=== PATIENT | female | born 1940 | race Caucasian/White ===

== ENCOUNTER 2017-07-04 12:35 | Inpatient (IN) | payer MEDICARE, OTHER, SELFPAY ==
[2017-07-04 13:04] VITALS: BP 148/79; PULSE 85; RESP 17; TEMP 36.6; O2SAT 97
--- NOTE | 2017-07-04 13:04 | NURSING ---
pt arrived via WC from [facility]
[2017-07-04 14:03] VITALS: BMI 29.0
[2017-07-04 14:06] VITALS: O2SAT 98
--- NOTE | 2017-07-04 14:36 | NURSING ---
DR WHITE NOTIFIED OF INR 3.1, NEW ORDER TO CHANGE COUMADIN 4.5MG DAILY. ALSO NOTIFIED OF CONFUSION/HALLUCINATIONS. NEW ORDER TO CHECK UA C/S
[2017-07-04 15:16] VITALS: BMI 29.0
[2017-07-04 16:02] LABS: Bacteria 0 SEEN /hpf (None Seen); Color, Urine Yellow (Yellow); Glucose, Dipstick Normal (Normal); Ketone-Dipstick Negative (Negative); Leukocyte Esterase-Dipstick Negative /ul (Negative); Mucous, Urine 0 SEEN /hpf (<or=2+); Nitrite-Dipstick Negative (Negative); Occult Blood-Urine 50 /ul (Negative); Protein-Dipstick 30 mg/dl (Negative); Specific Gravity, Urine 1.015 (1.002-1.030); Squamous Epithelial Cells - UA 0 SEEN /hpf (5-10); Urine Bilirubin Dipstick Negative (Negative); Urine Clarity Sl. Cloudy (Clear); Urine Urobilinogen Normal (Normal); White Blood Cells 0 SEEN /hpf (0-5)
[2017-07-04 16:30] LABS: Red Blood Cells-Urine 0-5 SEEN /hpf (0-5)
[2017-07-04 17:05] LABS: Bedside Glucose 81 mg/dL (70-110)
--- NOTE | 2017-07-04 17:14 | PCM.HP.STD ---
Problem List (1) Shortness of breath Status: Acute (2) Acute on chronic diastolic heart failure Status: Acute (3) Coronary artery disease Status: Chronic (4) Diabetes mellitus Status: Chronic (5) DVT (deep venous thrombosis) Status: Chronic (6) Lymphedema Status: Chronic (7) Gout Status: Acute (8) Peripheral vascular disease Status: Chronic (9) Hypertension Status: Chronic Qualifiers: (10) Hyperlipidemia Status: Chronic Qualifiers: (11) Osteoarthritis Status: Chronic Qualifiers: (12) Venous stasis dermatitis Status: Chronic Qualifiers: (13) A-fib Status: Chronic Qualifiers: History of Present Illness Date of Admission: 07/04/17 Chief Complaint: Here for rehabilitation, strengthening, prior to discharge home with spouse. 06/29/2017 Admit to Hospital with fever, chills, cough. Productive cough, worsening dyspnea on exertion. Keflex x 3 days, not helping. Auditory and visual hallucinations. Troponin negative, Rapid flu negative. Chest X-ray showed vascular congestion, mild to moderate pulmonary edema. EKG atrial fibrillation, heart rate 90, V6 T wave inversion. Lasix 40MG IV given. Order respiratory panel. 06/30/2017 Chest X-ray no acute airspace disease. 06/30/2017 Echo Normal LV size. Mild concentric LVH. EF 50%. Right atrial systolic pressure 28mmHG. Hallucinations continue, stress from recent son's . Patient ruled out for [place]. IV Lasix changed to oral Lasix. 07/04/2017 Admit to TCU for rehabilitation, strengthening, prior to discharge home with spouse. Past Medical History Past Medical History (Chronic Problems): Chronic Problems Peripheral edema (Chronic) Venous (peripheral) insufficiency (Chronic) Peripheral vascular disease (Chronic) CHF (congestive heart failure) (Chronic) Diabetes type 2, controlled (Chronic) Hypertension (Chronic) Hyperlipidemia (Chronic) Atherosclerotic heart disease of [place] coronary artery without angina pectoris (Chronic) Presence of cardiac pacemaker (Chronic) Presence of prosthetic heart valve (Chronic) S/P AAA (abdominal aortic aneurysm) repair (Chronic) Ulcer, venous stasis, left (Chronic) left medial ankle Lymphedema of both lower extremities (Chronic) Venous hypertension, chronic, with inflammation (Chronic) History of DVT (deep vein thrombosis) (Chronic) Postphlebetic syndrome with inflammation (Chronic) Leg swelling (Chronic) Osteoarthritis (Chronic) Venous stasis dermatitis (Chronic) A-fib (Chronic) Coronary artery disease (Chronic) Diabetes mellitus (Chronic) DVT (deep venous thrombosis) (Chronic) Lymphedema (Chronic) Allergies duloxetine [From Cymbalta] Allergy (Verified 05/02/16 14:48) Other Penicillins Allergy (Verified 05/02/16 14:48) Hives terbutaline [From Brethine] Allergy (Verified 05/02/16 14:48) Shortness of breath tolmetin Adverse Reaction (Verified 05/02/16 14:48) Unknown Home Medications: Ambulatory Orders Medication Instructions Recorded Allopurinol [Zyloprim] 100 mg PO DAILYCM 05/02/16 Aspirin 81 mg PO DAILY 05/02/16 Nitroglycerin [Nitrostat] 0.4 mg SUBLINGUAL Q5M PRN 05/02/16 Oxycodone HCl/Acetaminophen 1 tablet PO Q6H PRN PRN 05/02/16 [Percocet 5-325] Rosuvastatin Calcium [Crestor] 10 mg PO DAILY 05/02/16 Warfarin [Coumadin] 3 mg PO MOWEFR 05/02/16 Warfarin [Coumadin] 6 mg PO SUTUTH 05/02/16 DiphenhydrAMINE [Benadryl] 25 mg PO DAILY PRN 04/27/17 Quinapril HCl [Accupril] 20 mg PO DAILY 06/30/17 Carvedilol [Coreg (Beta Luci)] 3.125 mg PO BID 07/04/17 Furosemide [Lasix] 20 mg PO DAILY 07/04/17 Insulin Aspart [Novolog Flexpen] See Protocol [facility] 07/04/17 Surgical History: angioplasty, coronary bypass surgery - x 2., hysterectomy, pacemaker implantation, - - Aortic valve replacement, AAA repair endoluminal. 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 Denies: Shortness of breath at rest, Sputum production Gastrointestinal: Denies: Abdominal Pain, Nausea, Vomiting Genitourinary: Denies: Dysuria Musculoskeletal: Denies: Joint Pain, Joint Tenderness Skin: Denies: Rash, Wounds Neurological: Denies: Numbness, Tingling, Focal weakness Psychiatric: Denies: Anxiety, Depression, Homicidal Ideations, Suicidal Ideations Hematologic/ Lymphatic: Denies: Easy Bruising, Easy Bleeding VTE Information - Inpt Only VTE Present on Admission: No VTE Mechan Device Prophylaxis: Knee High NITESH Hose VTE Pharm Prophylaxis ordered?: Yes Patient Problems: Active and Suspected Problems Shortness of breath (Acute) Acute on chronic diastolic heart failure (Acute) Gout (Acute) - Physical Exam General: Alert, Oriented x3, Cooperative HEENT: Atraumatic, PERRLA, EOMI, Normocephalic Neck: Supple, No JVD, Negative Carotid Bruits Lungs: Normal air movement, Wheezes - Diffuse. Cardiovascular: Regular rate, No murmurs Abdomen: Bowel Sounds Present, Soft, Non Tender Extremities: No edema, Capillary Refill Less than 3 Seconds Skin: No rashes, No breakdown Musculoskeletal: No Tenderness to Palpation of Joints or Extremities Neurological: Cranial nerves II-XII grossly intact Psych/Mental Status: Normal Affect, Appropriate Vital Signs Temp Pulse Resp BP Pulse Ox 97.8 F 85 17 148/79 H 98 07/04/17 13:04 07/04/17 13:04 07/04/17 13:04 07/04/17 13:04 07/04/17 14:06 Oxygen Delivery Method Room Air Weight: 76.7 kg Body Mass Index (BMI) 29.0 Intake and Output for Last 24 Hours 07/02/17 07/03/17 07/04/17 23:59 23:59 23:59 Output Total 350 / 350 Balance -350 / -350 Laboratory Tests Past 24 Hrs 07/04/17 15:40 Urine Color Yellow Urine Clarity Sl. Cloudy Urine pH 6.0 Ur Specific [place] 1.015 Urine Protein 30 H Urine Glucose (UA) Normal Urine Ketones Negative Urine Occult Blood 50 H Urine Nitrite Negative Urine Bilirubin Negative Urine Urobilinogen Normal Ur Leukocyte Esterase Negative Urine RBC 0-5 SEEN Urine WBC 0 SEEN Ur Squamous Epith Cells 0 SEEN Urine Bacteria 0 SEEN Urine Mucus 0 SEEN POC Glucose 07/04/17 17:01 POC Glucose 81 Assessment/Plan Active and Suspected Problems Shortness of breath (Acute) Acute on chronic diastolic heart failure (Acute) Gout (Acute) 77 year old female with below past medical history hospitalized for acute on chronic diastolic heart failure, complicated by auditory and visual hallucinations from encephalopathy, severe stress, admitted to TCU or rehabilitation, strengthening, prior to discharge home with spouse. Debility - PT/OT. Pain - Tylenol 1000MG Q8H PRN mild pain. Bowel - Miralax 17GM daily, Senna/colace 1 tablet BID, Dulcolax 10MG PO daily PRN. Pneumonia vaccination - Administer Prevnar 13 and/or Pneumovax 23 as necessary. DVT prophylaxis - Not necessary, already on warfarin. Gout - Allopurinol 100MG daily. Coronary artery disease - Coreg 3.125MG BID, Lisinopril 20MG daily, Aspirin 81MG daily, NTG 0.4MG SL Q5M PRN. Hyperlipidemia - Atorvastatin 20MG daily. Atrial Fibrillation - Coreg 3.125MG BID, Warfarin 4.5MG daily, follow INR. Skin irritation - Eucerin intensive repair BID bilateral lower extremities. Acute on chronic diastolic heart failure - Coreg 3.125MG BID, Lisinopril 20MG daily, Lasix 20MG daily. Nutrition - Glucerna Shake 120ML TIDCM. Tinea Corporis - Nystatin BID abdominal folds. Bronchitis - Chest X-ray, Levaquin 250MG daily x 7 days, Medrol Dosepak, [place].
--- NOTE | 2017-07-04 17:27 | HP.PCM_ITS ---
Problem List (1) Shortness of breath Status: Acute (2) Acute on chronic diastolic heart failure Status: Acute (3) Coronary artery disease Status: Chronic (4) Diabetes mellitus Status: Chronic (5) DVT (deep venous thrombosis) Status: Chronic (6) Lymphedema Status: Chronic (7) Gout Status: Acute (8) Peripheral vascular disease Status: Chronic (9) Hypertension Status: Chronic Qualifiers: (10) Hyperlipidemia Status: Chronic Qualifiers: (11) Osteoarthritis Status: Chronic Qualifiers: (12) Venous stasis dermatitis Status: Chronic Qualifiers: (13) A-fib Status: Chronic Qualifiers: History of Present Illness Date of Admission: 07/04/17 Chief Complaint: Here for rehabilitation, strengthening, prior to discharge home with spouse. 06/29/2017 Admit to Hospital with fever, chills, cough. Productive cough, worsening dyspnea on exertion. Keflex x 3 days, not helping. Auditory and visual hallucinations. Troponin negative, Rapid flu negative. Chest X-ray showed vascular congestion, mild to moderate pulmonary edema. EKG atrial fibrillation, heart rate 90, V6 T wave inversion. Lasix 40MG IV given. Order respiratory panel. 06/30/2017 Chest X-ray no acute airspace disease. 06/30/2017 Echo Normal LV size. Mild concentric LVH. EF 50%. Right atrial systolic pressure 28mmHG. Hallucinations continue, stress from recent son's . Patient ruled out for [place]. IV Lasix changed to oral Lasix. 07/04/2017 Admit to TCU for rehabilitation, strengthening, prior to discharge home with spouse. Past Medical History Past Medical History (Chronic Problems): Chronic Problems Peripheral edema (Chronic) Venous (peripheral) insufficiency (Chronic) Peripheral vascular disease (Chronic) CHF (congestive heart failure) (Chronic) Diabetes type 2, controlled (Chronic) Hypertension (Chronic) Hyperlipidemia (Chronic) Atherosclerotic heart disease of [place] coronary artery without angina pectoris (Chronic) Presence of cardiac pacemaker (Chronic) Presence of prosthetic heart valve (Chronic) S/P AAA (abdominal aortic aneurysm) repair (Chronic) Ulcer, venous stasis, left (Chronic) left medial ankle Lymphedema of both lower extremities (Chronic) Venous hypertension, chronic, with inflammation (Chronic) History of DVT (deep vein thrombosis) (Chronic) Postphlebetic syndrome with inflammation (Chronic) Leg swelling (Chronic) Osteoarthritis (Chronic) Venous stasis dermatitis (Chronic) A-fib (Chronic) Coronary artery disease (Chronic) Diabetes mellitus (Chronic) DVT (deep venous thrombosis) (Chronic) Lymphedema (Chronic) Allergies duloxetine [From Cymbalta] Allergy (Verified 05/02/16 14:48) Other Penicillins Allergy (Verified 05/02/16 14:48) Hives terbutaline [From Brethine] Allergy (Verified 05/02/16 14:48) Shortness of breath tolmetin Adverse Reaction (Verified 05/02/16 14:48) Unknown Home Medications: Ambulatory Orders Medication Instructions Recorded Allopurinol [Zyloprim] 100 mg PO DAILYCM 05/02/16 Aspirin 81 mg PO DAILY 05/02/16 Nitroglycerin [Nitrostat] 0.4 mg SUBLINGUAL Q5M PRN 05/02/16 Oxycodone HCl/Acetaminophen 1 tablet PO Q6H PRN PRN 05/02/16 [Percocet 5-325] Rosuvastatin Calcium [Crestor] 10 mg PO DAILY 05/02/16 Warfarin [Coumadin] 3 mg PO MOWEFR 05/02/16 Warfarin [Coumadin] 6 mg PO SUTUTH 05/02/16 DiphenhydrAMINE [Benadryl] 25 mg PO DAILY PRN 04/27/17 Quinapril HCl [Accupril] 20 mg PO DAILY 06/30/17 Carvedilol [Coreg (Beta Luci)] 3.125 mg PO BID 07/04/17 Furosemide [Lasix] 20 mg PO DAILY 07/04/17 Insulin Aspart [Novolog Flexpen] See Protocol [facility] 07/04/17 Surgical History: angioplasty, coronary bypass surgery - x 2., hysterectomy, pacemaker implantation, - - Aortic valve replacement, AAA repair endoluminal. 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 Denies: Shortness of breath at rest, Sputum production Gastrointestinal: Denies: Abdominal Pain, Nausea, Vomiting Genitourinary: Denies: Dysuria Musculoskeletal: Denies: Joint Pain, Joint Tenderness Skin: Denies: Rash, Wounds Neurological: Denies: Numbness, Tingling, Focal weakness Psychiatric: Denies: Anxiety, Depression, Homicidal Ideations, Suicidal Ideations Hematologic/ Lymphatic: Denies: Easy Bruising, Easy Bleeding VTE Information - Inpt Only VTE Present on Admission: No VTE Mechan Device Prophylaxis: Knee High NITESH Hose VTE Pharm Prophylaxis ordered?: Yes Patient Problems: Active and Suspected Problems Shortness of breath (Acute) Acute on chronic diastolic heart failure (Acute) Gout (Acute) - Physical Exam General: Alert, Oriented x3, Cooperative HEENT: Atraumatic, PERRLA, EOMI, Normocephalic Neck: Supple, No JVD, Negative Carotid Bruits Lungs: Normal air movement, Wheezes - Diffuse. Cardiovascular: Regular rate, No murmurs Abdomen: Bowel Sounds Present, Soft, Non Tender Extremities: No edema, Capillary Refill Less than 3 Seconds Skin: No rashes, No breakdown Musculoskeletal: No Tenderness to Palpation of Joints or Extremities Neurological: Cranial nerves II-XII grossly intact Psych/Mental Status: Normal Affect, Appropriate Vital Signs Temp Pulse Resp BP Pulse Ox 97.8 F 85 17 148/79 H 98 07/04/17 13:04 07/04/17 13:04 07/04/17 13:04 07/04/17 13:04 07/04/17 14:06 Oxygen Delivery Method Room Air Weight: 76.7 kg Body Mass Index (BMI) 29.0 Intake and Output for Last 24 Hours 07/02/17 07/03/17 07/04/17 23:59 23:59 23:59 Output Total 350 / 350 Balance -350 / -350 Laboratory Tests Past 24 Hrs 07/04/17 15:40 Urine Color Yellow Urine Clarity Sl. Cloudy Urine pH 6.0 Ur Specific [place] 1.015 Urine Protein 30 H Urine Glucose (UA) Normal Urine Ketones Negative Urine Occult Blood 50 H Urine Nitrite Negative Urine Bilirubin Negative Urine Urobilinogen Normal Ur Leukocyte Esterase Negative Urine RBC 0-5 SEEN Urine WBC 0 SEEN Ur Squamous Epith Cells 0 SEEN Urine Bacteria 0 SEEN Urine Mucus 0 SEEN POC Glucose 07/04/17 17:01 POC Glucose 81 Assessment/Plan Active and Suspected Problems Shortness of breath (Acute) Acute on chronic diastolic heart failure (Acute) Gout (Acute) 77 year old female with below past medical history hospitalized for acute on chronic diastolic heart failure, complicated by auditory and visual hallucinations from encephalopathy, severe stress, admitted to TCU or rehabilitation, strengthening, prior to discharge home with spouse. * Debility - PT/OT. * Pain - Tylenol 1000MG Q8H PRN mild pain. * Bowel - Miralax 17GM daily, Senna/colace 1 tablet BID, Dulcolax 10MG PO daily PRN. * Pneumonia vaccination - Administer Prevnar 13 and/or Pneumovax 23 as necessary. * DVT prophylaxis - Not necessary, already on warfarin. * Gout - Allopurinol 100MG daily. * Coronary artery disease - Coreg 3.125MG BID, Lisinopril 20MG daily, Aspirin 81MG daily, NTG 0.4MG SL Q5M PRN. * Hyperlipidemia - Atorvastatin 20MG daily. * Atrial Fibrillation - Coreg 3.125MG BID, Warfarin 4.5MG daily, follow INR. * Skin irritation - Eucerin intensive repair BID bilateral lower extremities. * Acute on chronic diastolic heart failure - Coreg 3.125MG BID, Lisinopril 20MG daily, Lasix 20MG daily. * Nutrition - Glucerna Shake 120ML TIDCM. * Tinea Corporis - Nystatin BID abdominal folds. * Bronchitis - Chest X-ray, Levaquin 250MG daily x 7 days, Medrol Dosepak, Duoneb.
[2017-07-04] MEDS: Glucerna Shake 120 ML LIQUID PO (17:53)
[2017-07-04] MEDS: Warfarin 2.5 MG, Warfarin 2 MG 4.5 MG PO (17:54)
[2017-07-04] MEDS: Carvedilol 3.125 MG TABLET PO (17:54)
[2017-07-04] MEDS: Atorvastatin Calcium 20 MG Tablet PO (20:41)
[2017-07-04] MEDS: Nystatin Powder 15gm Bottle 1 APPLIC TOPICAL (20:45)
[2017-07-04 21:25] LABS: Bedside Glucose 105 mg/dL (70-110)
[2017-07-05] MEDS: Lisinopril 20 MG Tablet PO (06:23)
[2017-07-05] MEDS: Carvedilol 3.125 MG TABLET PO ×2 (06:23→16:39)
[2017-07-05] MEDS: Furosemide 20 MG Tablet PO (06:23)
[2017-07-05 07:01] LABS: Bedside Glucose 97 mg/dL (70-110)
[2017-07-05 07:41] VITALS: O2SAT 96
[2017-07-05 07:47] LABS: Absolute Neutrophil Count 7.1 X10^3/uL (2.0-7.7); Basophil# 0.01 X10^3/uL; Basophil% 0.1 % (0-1); Eosinophil# 0.39 X10^3/uL; Eosinophils% 4.2 % (0-5); Hemoglobin 11.4 g/dl (12.0-15.0); Mean Corpuscular Hgb 25.8 pg (27.0-32.0); Mean Platelet Vol. 11.1 fl (6.2-12.0); Monocyte# 0.55 X10^3/uL; Neutrophil # 7.13 X10^3/uL (2.7-7.7); Neutrophil % 77.6 % (47-70); Platelet Count 144 K/mm3 (150-450); RBC Distribution Width CV 17.9 % (11.6-14.6); RBC Distribution Width SD 56.3 fl (35.1-43.9); Red Blood Count 4.42 M/mm3 (4.2-5.4); White Blood Count 9.2 K/mm3 (4.4-11.0)
[2017-07-05] MEDS: Glucerna Shake 120 ML LIQUID PO ×3 (07:53→16:38)
[2017-07-05] MEDS: Aspirin 81 MG TAB.CHEW PO (07:54)
[2017-07-05] MEDS: Allopurinol 100 MG Tablet PO (07:54)
[2017-07-05 07:59] LABS: Anion Gap 7 (5-15); BUN 41 mg/dL (7-18); BUN/Creat Ratio 29.3 RATIO (10-20); Calcium,Total 9.4 mg/dL (8.5-10.1); Chloride 113 mmol/L (98-107); EST Glomerular Filtration Rate 39 mL/min (>60); Est Glom Filt Rate - Afr Amer 47 mL/min (>60); Glucose 83 mg/dL (70-110); Potassium 3.9 mmol/L (3.5-5.1); Sodium Level 147 mmol/L (136-145)
[2017-07-05 08:10] LABS: POSITIVE COUNT NO; POSITIVE DIFFERENTIAL NO; POSITIVE MORPHOLOGY NO
[2017-07-05 08:19] LABS: International Normalized Ratio 2.5; Prothrombin Time (Protime)PT. 26.4 SECONDS (11.7-14.9)
[2017-07-05 10:00] VITALS: PULSE 80; RESP 16
[2017-07-05] MEDS: Tuberculin,Purif.prot.deriv. 50 TU/ML Vial 5 ML ID (10:39)
--- NOTE | 2017-07-05 10:53 | NURSING ---
labs reviewed with Dr Kaur this AM, new order for sodium restriction.
[2017-07-05 11:11] LABS: Bedside Glucose 145 mg/dL (70-110)
[2017-07-05 15:44] VITALS: BP 142/49; PULSE 84; RESP 18; TEMP 36.9; O2SAT 98
[2017-07-05] MEDS: Warfarin 2.5 MG, Warfarin 2 MG 4.5 MG PO (16:38)
[2017-07-05 16:56] LABS: Bedside Glucose 81 mg/dL (70-110)
[2017-07-05] MEDS: Atorvastatin Calcium 20 MG Tablet PO (19:57)
[2017-07-05] MEDS: Acetaminophen 500 MG Tablet 1000 MG PO (20:00)
[2017-07-05] MEDS: Nystatin Powder 15gm Bottle 1 APPLIC TOPICAL (20:02)
[2017-07-06] MEDS: Carvedilol 3.125 MG TABLET PO ×2 (05:33→17:22)
[2017-07-06] MEDS: Furosemide 20 MG Tablet PO (05:34)
[2017-07-06] MEDS: Lisinopril 20 MG Tablet PO (05:34)
[2017-07-06] MEDS: Nystatin Powder 15gm Bottle 1 APPLIC TOPICAL ×2 (05:35→20:03)
[2017-07-06 06:02] LABS: Absolute Lymphocyte Count 1.47 X10^3/ul (0.83-4.51); Basophil# 0.03 X10^3/uL; Basophil% 0.3 % (0-1); Eosinophil# 0.48 X10^3/uL; Eosinophils% 4.9 % (0-5); Hematocrit 37.1 % (37-47); Hemoglobin 11.4 g/dl (12.0-15.0); Lymphocyte # 1.47 X10^3/ul (4.0); Lymphocyte % 15.1 % (19-41); Mean Corp Hgb Conc 30.7 g/gl (32-36); Mean Corpuscular Hgb 26.3 pg (27.0-32.0); Mean Corpuscular Volume 85.5 fL (81-99); Monocyte# 0.77 X10^3/uL; Monocyte% 7.9 % (0-10); Neutrophil # 6.98 X10^3/uL (2.7-7.7); Neutrophil % 71.7 % (47-70); Platelet Count 141 K/mm3 (150-450); RBC Distribution Width SD 55.5 fl (35.1-43.9); Red Blood Count 4.34 M/mm3 (4.2-5.4); White Blood Count 9.7 K/mm3 (4.4-11.0)
[2017-07-06 06:10] LABS: Anion Gap 9 (5-15); BUN 46 mg/dL (7-18); BUN/Creat Ratio 31.3 RATIO (10-20); Calcium,Total 9.4 mg/dL (8.5-10.1); Chloride 108 mmol/L (98-107); Creatinine, Serum 1.47 mg/dL (0.55-1.02); EST Glomerular Filtration Rate 37 mL/min (>60); Est Glom Filt Rate - Afr Amer 44 mL/min (>60); Estimated Creatinine Clearance 27.24 ml/min; Glucose 84 mg/dL (70-110); Potassium 4.3 mmol/L (3.5-5.1); Sodium Level 144 mmol/L (136-145)
[2017-07-06 06:18] LABS: International Normalized Ratio 2.7; Prothrombin Time (Protime)PT. 27.9 SECONDS (11.7-14.9)
[2017-07-06 06:21] LABS: POSITIVE COUNT NO; POSITIVE DIFFERENTIAL NO; POSITIVE MORPHOLOGY NO
[2017-07-06 06:46] LABS: Bedside Glucose 87 mg/dL (70-110)
--- NOTE | 2017-07-06 08:51 | RAD_ITS ---
STUDY: X-RAY CHEST REASON FOR EXAM: Female, 77 years old. History of cough. TECHNIQUE: AP and lateral views of the chest. COMPARISON: Comparison is made with prior study dated December 28, 2017. FINDINGS: The lungs are clear and expanded. Scattered calcified granulomas. There is no demonstrated pleural abnormality. Sternal cerclage wires and vascular clips are present from a prior sternotomy and coronary artery bypass graft procedure (CABG). A left-sided dual-chamber pacemaker is seen. Normal mediastinum and bam. Normal visualized pulmonary arteries. There is atherosclerotic calcification of the aortic arch with tortuosity. There are diffuse degenerative changes of the visualized thoracic spine. Healed right rib fractures. Covered stent is seen within the proximal abdominal aorta. RAD/Chest PA and Lateral IMPRESSION: Stable examination. No acute abnormality is seen. Electronically Signed: George Mitchell MD at 12:29 EST Tel [phone], Service support ,
--- NOTE | 2017-07-06 10:05 | NURSING ---
Addendum entered by Hortencia Brooks 07/06/17 19:49: Dr. Kaur reviewed CXR, NNO. Original Note: Addendum entered by Hortencia Brooks 07/06/17 10:08: Labs reviewed by Dr. Kaur, NNO. Original Note: Pt has a moist productive cough with crackles in BL posterior lobes. Dr. Kaur made aware, NO for CXR, sputum culture, duonebs qhours, cefdinir 300mg PO [id number] thru 07/13 and methylprednisone 12mg PO daily through 07/11. Pt made aware.
[2017-07-06] MEDS: Allopurinol 100 MG Tablet PO (10:27)
[2017-07-06] MEDS: Aspirin 81 MG TAB.CHEW PO (10:27)
[2017-07-06] MEDS: Cefdinir 300 MG Capsule PO ×2 (10:28→17:22)
[2017-07-06] MEDS: MethylPREDNISolone DosePak 4 MG BOX PO ×3 (12:19→20:02)
--- NOTE | 2017-07-06 15:24 | PCM.PN.RX ---
<Miguel Ag D - Last Filed: 07/06/17 15:24> Progress Note - Pharmacy Subjective: TCU Admission Objective: Allergies duloxetine [From Cymbalta] Allergy (Verified 05/02/16 14:48) Other Penicillins Allergy (Verified 05/02/16 14:48) Hives terbutaline [From Brethine] Allergy (Verified 05/02/16 14:48) Shortness of breath tolmetin Adverse Reaction (Verified 05/02/16 14:48) Unknown Home Medications Medication Instructions Recorded Allopurinol [Zyloprim] 100 mg PO DAILYCM 05/02/16 Aspirin 81 mg PO DAILY 05/02/16 Nitroglycerin [Nitrostat] 0.4 mg SUBLINGUAL Q5M PRN 05/02/16 Oxycodone HCl/Acetaminophen 1 tablet PO Q6H PRN PRN 05/02/16 [Percocet 5-325] Rosuvastatin Calcium [Crestor] 10 mg PO DAILY 05/02/16 Warfarin [Coumadin] 3 mg PO MOWEFR 05/02/16 Warfarin [Coumadin] 6 mg PO SUTUTH 05/02/16 DiphenhydrAMINE [Benadryl] 25 mg PO DAILY PRN 04/27/17 Quinapril HCl [Accupril] 20 mg PO DAILY 06/30/17 Carvedilol [Coreg (Beta Luci)] 3.125 mg PO BID 07/04/17 Furosemide [Lasix] 20 mg PO DAILY 07/04/17 Insulin Aspart [Novolog Flexpen] See Protocol [facility] 07/04/17 Current Medications Generic Name Dose Route Start Last Admin Trade Name Freq PRN Reason Stop Dose Admin Acetaminophen 1,000 mg 07/04/17 17:31 07/05/17 20:00 Tylenol PO 1,000 mg Q8H PRN PRN Administration MILD PAIN (1-3/10) Albuterol/Ipratropium 3 ml 07/06/17 09:00 Duoneb INHALATION Q6HWA.RT [facility] Allopurinol 100 mg 07/05/17 08:00 07/06/17 10:27 Zyloprim PO 100 mg DAILYCM [facility] Administration Aspirin 81 mg 07/05/17 08:00 07/06/17 10:27 Aspirin, Baby PO 81 mg DAILY@0800 [facility] Administration Atorvastatin Calcium 20 mg 07/04/17 22:00 07/05/17 19:57 Lipitor PO 20 mg DAILY@2200 [facility] Administration Bisacodyl 10 mg 07/04/17 17:32 Dulcolax PO DAILY PRN Constipation Carvedilol 3.125 mg 07/04/17 18:00 07/06/17 05:33 Coreg PO 3.125 mg BID [facility] Administration Cefdinir 300 mg 07/06/17 10:00 07/06/17 10:28 Omnicef [Equiv] PO 07/13/17 10:01 300 mg Q12 [facility] Administration Emollient Ointment 1 applic 07/04/17 22:00 07/06/17 05:35 Eucerin Intensive Repair TOPICAL 1 applicatio 0600,2200 [facility] Administration Protocol Furosemide 20 mg 07/05/17 06:00 07/06/17 05:34 Lasix PO 20 mg DAILY [facility] Administration Lisinopril 20 mg 07/05/17 06:00 07/06/17 05:34 Zestril PO 20 mg DAILY [facility] Administration Methylprednisolone 12 mg 07/06/17 12:00 07/06/17 12:19 Medrol Dosepak PO 07/11/17 04:59 12 mg 1200 [facility] Administration Taper Nitroglycerin 0.4 mg 07/04/17 13:09 Nitrostat SUBLINGUAL Q5M PRN Chest Pain Nystatin 1 applic 07/04/17 22:00 07/06/17 05:35 Mycostatin Powder TOPICAL 1 applicatio 0600,2200 [facility] Administration Protocol Polyethylene Glycol 17 gm 07/05/17 06:00 07/06/17 05:34 Miralax PO Not Given DAILY [facility] Senna/Docusate Sodium 1 tablet 07/04/17 18:00 07/06/17 05:35 Senokot-S, Lidia-Colace PO Not Given BID [facility] Tuberculin PPD 5 tu 07/12/17 10:00 Tubersol, Aplisol, Ppd ID 07/12/17 10:01 X1 ONE Warfarin Sodium 2.5 mg/ 4.5 mg 07/04/17 17:00 07/05/17 16:38 Warfarin Sodium 2 mg PO 4.5 mg DAILY@1700 [facility] Administration Problem List Shortness of breath (Acute) Acute on chronic diastolic heart failure (Acute) Coronary artery disease (Chronic) Diabetes mellitus (Chronic) DVT (deep venous thrombosis) (Chronic) Lymphedema (Chronic) Gout (Acute) Vital Signs Temp Pulse Resp BP Pulse Ox 98.5 F 84 18 142/49 H 98 07/05/17 15:44 07/05/17 15:44 07/05/17 15:44 07/05/17 15:44 07/05/17 15:44 Oxygen Delivery Method Room Air Weight: 76.7 kg Body Mass Index (BMI) 29.0 Sodium 144 mmol/L (136-145) 07/06/17 05:20 Potassium 4.3 mmol/L (3.5-5.1) 07/06/17 05:20 Chloride 108 mmol/L (98-107) H 07/06/17 05:20 Carbon Dioxide 27.0 mmol/L (21.0-32.0) 07/06/17 05:20 Anion Gap 9 (5-15) 07/06/17 05:20 BUN 46 mg/dL (7-18) H 07/06/17 05:20 Creatinine 1.47 mg/dL (0.55-1.02) H 07/06/17 05:20 Est GFR (MDRD) Af Amer 44 mL/min (>60) L 07/06/17 05:20 Est GFR (MDRD) Non-Af 37 mL/min (>60) L 07/06/17 05:20 BUN/Creatinine Ratio 31.3 RATIO (10-20) H 07/06/17 05:20 Glucose 84 mg/dL (70-110) 07/06/17 05:20 Assessment/Plan: 1) Pain APAP 2) AFib/CAD/CHF Warfarin goal INR 2-3, ASA, atorvastatin, carvedilol, lisinopril, furosemide, lisinopril, prn ntg. PT/INR within goal range, BP/HR within goal ranges, K wnl, BUN/SCr at baseline. Continue to monitor BP/HR, renal function, electrolytes, prn medication use, s/s chest pain. 3) ID/Bronchitis Cefdinir, ipratropium/albuterol, methylprednisolone dose pack. WBC wnl, afebrile, RA O2. Continue to monitor for shortness of breath, s/s infection. 4) Gout Allopurinol daily. Continue to monitor s/s gout. 5) Derm Nystatin, emollient topically. Continue to monitor clinically. Psychotropic Medications: None Unnecessary Medications: None Bowel Regimen: 6) Senna/s, PEG, prn bisacodyl. Continue to monitor prn medication use, for constipation/diarrhea. Date of Note:: 07/06/17 - Provider Comments Provider responsibility: Provider responsible to enter orders to implement recommendations <Tian Kaur Chi - Last Filed: 07/06/17 18:58> Progress Note - Pharmacy Subjective: [] Objective: Allergies duloxetine [From Cymbalta] Allergy (Verified 05/02/16 14:48) Other Penicillins Allergy (Verified 05/02/16 14:48) Hives terbutaline [From Brethine] Allergy (Verified 05/02/16 14:48) Shortness of breath tolmetin Adverse Reaction (Verified 05/02/16 14:48) Unknown Home Medications Medication Instructions Recorded Allopurinol [Zyloprim] 100 mg PO DAILYCM 05/02/16 Aspirin 81 mg PO DAILY 05/02/16 Nitroglycerin [Nitrostat] 0.4 mg SUBLINGUAL Q5M PRN 05/02/16 Oxycodone HCl/Acetaminophen 1 tablet PO Q6H PRN PRN 05/02/16 [Percocet 5-325] Rosuvastatin Calcium [Crestor] 10 mg PO DAILY 05/02/16 Warfarin [Coumadin] 3 mg PO MOWEFR 05/02/16 Warfarin [Coumadin] 6 mg PO SUTUTH 05/02/16 DiphenhydrAMINE [Benadryl] 25 mg PO DAILY PRN 04/27/17 Quinapril HCl [Accupril] 20 mg PO DAILY 06/30/17 Carvedilol [Coreg (Beta Luci)] 3.125 mg PO BID 07/04/17 Furosemide [Lasix] 20 mg PO DAILY 07/04/17 Insulin Aspart [Novolog Flexpen] See Protocol [facility] 07/04/17 Current Medications Generic Name Dose Route Start Last Admin Trade Name Freq PRN Reason Stop Dose Admin Acetaminophen 1,000 mg 07/04/17 17:31 07/05/17 20:00 Tylenol PO 1,000 mg Q8H PRN PRN Administration MILD PAIN (1-3/10) Albuterol/Ipratropium 3 ml 07/06/17 09:00 Duoneb INHALATION Q6HWA.RT [facility] Allopurinol 100 mg 07/05/17 08:00 07/06/17 10:27 Zyloprim PO 100 mg DAILYCM [facility] Administration Aspirin 81 mg 07/05/17 08:00 07/06/17 10:27 Aspirin, Baby PO 81 mg DAILY@0800 [facility] Administration Atorvastatin Calcium 20 mg 07/04/17 22:00 07/05/17 19:57 Lipitor PO 20 mg DAILY@2200 [facility] Administration Bisacodyl 10 mg 07/04/17 17:32 Dulcolax PO DAILY PRN Constipation Carvedilol 3.125 mg 07/04/17 18:00 07/06/17 17:22 Coreg PO 3.125 mg BID [facility] Administration Cefdinir 300 mg 07/06/17 10:00 07/06/17 17:22 Omnicef [Equiv] PO 07/13/17 10:01 300 mg Q12 [facility] Administration Emollient Ointment 1 applic 07/04/17 22:00 07/06/17 05:35 Eucerin Intensive Repair TOPICAL 1 applicatio 599,2199 [facility] Administration Protocol Furosemide 20 mg 07/05/17 06:00 07/06/17 05:34 Lasix PO 20 mg DAILY [facility] Administration Lisinopril 20 mg 07/05/17 06:00 07/06/17 05:34 Zestril PO 20 mg DAILY [facility] Administration Methylprednisolone 4 mg 07/06/17 12:00 07/06/17 17:20 Medrol Dosepak PO 07/11/17 04:59 4 mg 1700 [facility] Administration Taper Nitroglycerin 0.4 mg 07/04/17 13:09 Nitrostat SUBLINGUAL Q5M PRN Chest Pain Nystatin 1 applic 07/04/17 22:00 07/06/17 05:35 Mycostatin Powder TOPICAL 1 applicatio 599,2200 [facility] Administration Protocol Polyethylene Glycol 17 gm 07/05/17 06:00 07/06/17 05:34 Miralax PO Not Given DAILY [facility] Senna/Docusate Sodium 1 tablet 07/04/17 18:00 07/06/17 17:22 Senokot-S, Lidia-Colace PO 1 tablet BID [facility] Administration Tuberculin PPD 5 tu 07/12/17 10:00 Tubersol, Aplisol, Ppd ID 07/12/17 10:01 X1 ONE Warfarin Sodium 2.5 mg/ 4.5 mg 07/04/17 17:00 07/06/17 17:22 Warfarin Sodium 2 mg PO 4.5 mg DAILY@1700 [facility] Administration Problem List Shortness of breath (Acute) Acute on chronic diastolic heart failure (Acute) Coronary artery disease (Chronic) Diabetes mellitus (Chronic) DVT (deep venous thrombosis) (Chronic) Lymphedema (Chronic) Gout (Acute) Vital Signs Temp Pulse Resp BP Pulse Ox 97.7 F L 90 18 157/75 H 99 07/06/17 16:00 07/06/17 16:00 07/06/17 16:00 07/06/17 16:00 07/06/17 16:00 Oxygen Delivery Method Room Air Weight: 76.7 kg Body Mass Index (BMI) 29.0 Sodium 144 mmol/L (136-145) 07/06/17 05:20 Potassium 4.3 mmol/L (3.5-5.1) 07/06/17 05:20 Chloride 108 mmol/L (98-107) H 07/06/17 05:20 Carbon Dioxide 27.0 mmol/L (21.0-32.0) 07/06/17 05:20 Anion Gap 9 (5-15) 07/06/17 05:20 BUN 46 mg/dL (7-18) H 07/06/17 05:20 Creatinine 1.47 mg/dL (0.55-1.02) H 07/06/17 05:20 Est GFR (MDRD) Af Amer 44 mL/min (>60) L 07/06/17 05:20 Est GFR (MDRD) Non-Af 37 mL/min (>60) L 07/06/17 05:20 BUN/Creatinine Ratio 31.3 RATIO (10-20) H 07/06/17 05:20 Glucose 84 mg/dL (70-110) 07/06/17 05:20 Assessment/Plan: Psychotropic Medications: Unnecessary Medications: Bowel Regimen: - Provider Comments Provider responsibility: Provider responsible to enter orders to implement recommendations Provider Comments to Recommendations by Pharmacy: Agree
--- NOTE | 2017-07-06 15:30 | PHA.CONS_ITS ---
<Miguel Ag D - Last Filed: 07/06/17 15:24> Progress Note - Pharmacy Subjective: TCU Admission Objective: Allergies duloxetine [From Cymbalta] Allergy (Verified 05/02/16 14:48) Other Penicillins Allergy (Verified 05/02/16 14:48) Hives terbutaline [From Brethine] Allergy (Verified 05/02/16 14:48) Shortness of breath tolmetin Adverse Reaction (Verified 05/02/16 14:48) Unknown Home Medications Medication Instructions Recorded Allopurinol [Zyloprim] 100 mg PO DAILYCM 05/02/16 Aspirin 81 mg PO DAILY 05/02/16 Nitroglycerin [Nitrostat] 0.4 mg SUBLINGUAL Q5M PRN 05/02/16 Oxycodone HCl/Acetaminophen 1 tablet PO Q6H PRN PRN 05/02/16 [Percocet 5-325] Rosuvastatin Calcium [Crestor] 10 mg PO DAILY 05/02/16 Warfarin [Coumadin] 3 mg PO MOWEFR 05/02/16 Warfarin [Coumadin] 6 mg PO SUTUTH 05/02/16 DiphenhydrAMINE [Benadryl] 25 mg PO DAILY PRN 04/27/17 Quinapril HCl [Accupril] 20 mg PO DAILY 06/30/17 Carvedilol [Coreg (Beta Luci)] 3.125 mg PO BID 07/04/17 Furosemide [Lasix] 20 mg PO DAILY 07/04/17 Insulin Aspart [Novolog Flexpen] See Protocol [facility] 07/04/17 Current Medications Generic Name Dose Route Start Last Admin Trade Name Freq PRN Reason Stop Dose Admin Acetaminophen 1,000 mg 07/04/17 17:31 07/05/17 20:00 Tylenol PO 1,000 mg Q8H PRN PRN Administration MILD PAIN (1-3/10) Albuterol/Ipratropium 3 ml 07/06/17 09:00 Duoneb INHALATION Q6HWA.RT [facility] Allopurinol 100 mg 07/05/17 08:00 07/06/17 10:27 Zyloprim PO 100 mg DAILYCM [facility] Administration Aspirin 81 mg 07/05/17 08:00 07/06/17 10:27 Aspirin, Baby PO 81 mg DAILY@0800 [facility] Administration Atorvastatin Calcium 20 mg 07/04/17 22:00 07/05/17 19:57 Lipitor PO 20 mg DAILY@2200 [facility] Administration Bisacodyl 10 mg 07/04/17 17:32 Dulcolax PO DAILY PRN Constipation Carvedilol 3.125 mg 07/04/17 18:00 07/06/17 05:33 Coreg PO 3.125 mg BID [facility] Administration Cefdinir 300 mg 07/06/17 10:00 07/06/17 10:28 Omnicef [Equiv] PO 07/13/17 10:01 300 mg Q12 [facility] Administration Emollient Ointment 1 applic 07/04/17 22:00 07/06/17 05:35 Eucerin Intensive Repair TOPICAL 1 applicatio 0600,2200 [facility] Administration Protocol Furosemide 20 mg 07/05/17 06:00 07/06/17 05:34 Lasix PO 20 mg DAILY [facility] Administration Lisinopril 20 mg 07/05/17 06:00 07/06/17 05:34 Zestril PO 20 mg DAILY [facility] Administration Methylprednisolone 12 mg 07/06/17 12:00 07/06/17 12:19 Medrol Dosepak PO 07/11/17 04:59 12 mg 1200 [facility] Administration Taper Nitroglycerin 0.4 mg 07/04/17 13:09 Nitrostat SUBLINGUAL Q5M PRN Chest Pain Nystatin 1 applic 07/04/17 22:00 07/06/17 05:35 Mycostatin Powder TOPICAL 1 applicatio 0600,2200 [facility] Administration Protocol Polyethylene Glycol 17 gm 07/05/17 06:00 07/06/17 05:34 Miralax PO Not Given DAILY [facility] Senna/Docusate Sodium 1 tablet 07/04/17 18:00 07/06/17 05:35 Senokot-S, Lidia-Colace PO Not Given BID [facility] Tuberculin PPD 5 tu 07/12/17 10:00 Tubersol, Aplisol, Ppd ID 07/12/17 10:01 X1 ONE Warfarin Sodium 2.5 mg/ 4.5 mg 07/04/17 17:00 07/05/17 16:38 Warfarin Sodium 2 mg PO 4.5 mg DAILY@1700 [facility] Administration Problem List Shortness of breath (Acute) Acute on chronic diastolic heart failure (Acute) Coronary artery disease (Chronic) Diabetes mellitus (Chronic) DVT (deep venous thrombosis) (Chronic) Lymphedema (Chronic) Gout (Acute) Vital Signs Temp Pulse Resp BP Pulse Ox 98.5 F 84 18 142/49 H 98 07/05/17 15:44 07/05/17 15:44 07/05/17 15:44 07/05/17 15:44 07/05/17 15:44 Oxygen Delivery Method Room Air Weight: 76.7 kg Body Mass Index (BMI) 29.0 Sodium 144 mmol/L (136-145) 07/06/17 05:20 Potassium 4.3 mmol/L (3.5-5.1) 07/06/17 05:20 Chloride 108 mmol/L (98-107) H 07/06/17 05:20 Carbon Dioxide 27.0 mmol/L (21.0-32.0) 07/06/17 05:20 Anion Gap 9 (5-15) 07/06/17 05:20 BUN 46 mg/dL (7-18) H 07/06/17 05:20 Creatinine 1.47 mg/dL (0.55-1.02) H 07/06/17 05:20 Est GFR (MDRD) Af Amer 44 mL/min (>60) L 07/06/17 05:20 Est GFR (MDRD) Non-Af 37 mL/min (>60) L 07/06/17 05:20 BUN/Creatinine Ratio 31.3 RATIO (10-20) H 07/06/17 05:20 Glucose 84 mg/dL (70-110) 07/06/17 05:20 Assessment/Plan: 1) Pain APAP 2) AFib/CAD/CHF Warfarin goal INR 2-3, ASA, atorvastatin, carvedilol, lisinopril, furosemide , lisinopril, prn ntg. PT/INR within goal range, BP/HR within goal ranges, K wnl , BUN/SCr at baseline. Continue to monitor BP/HR, renal function, electrolytes, prn medication use, s/s chest pain. 3) ID/Bronchitis Cefdinir, ipratropium/albuterol, methylprednisolone dose pack. WBC wnl, afebrile, RA O2. Continue to monitor for shortness of breath, s/s infection. 4) Gout Allopurinol daily. Continue to monitor s/s gout. 5) Derm Nystatin, emollient topically. Continue to monitor clinically. Psychotropic Medications: None Unnecessary Medications: None Bowel Regimen: 6) Senna/s, PEG, prn bisacodyl. Continue to monitor prn medication use, for constipation/diarrhea. Date of Note:: 07/06/17 - Provider Comments Provider responsibility: Provider responsible to enter orders to implement recommendations <Tian Kaur Chi - Last Filed: 07/06/17 18:58> Progress Note - Pharmacy Subjective: [] Objective: Allergies duloxetine [From Cymbalta] Allergy (Verified 05/02/16 14:48) Other Penicillins Allergy (Verified 05/02/16 14:48) Hives terbutaline [From Brethine] Allergy (Verified 05/02/16 14:48) Shortness of breath tolmetin Adverse Reaction (Verified 05/02/16 14:48) Unknown Home Medications Medication Instructions Recorded Allopurinol [Zyloprim] 100 mg PO DAILYCM 05/02/16 Aspirin 81 mg PO DAILY 05/02/16 Nitroglycerin [Nitrostat] 0.4 mg SUBLINGUAL Q5M PRN 05/02/16 Oxycodone HCl/Acetaminophen 1 tablet PO Q6H PRN PRN 05/02/16 [Percocet 5-325] Rosuvastatin Calcium [Crestor] 10 mg PO DAILY 05/02/16 Warfarin [Coumadin] 3 mg PO MOWEFR 05/02/16 Warfarin [Coumadin] 6 mg PO SUTUTH 05/02/16 DiphenhydrAMINE [Benadryl] 25 mg PO DAILY PRN 04/27/17 Quinapril HCl [Accupril] 20 mg PO DAILY 06/30/17 Carvedilol [Coreg (Beta Luci)] 3.125 mg PO BID 07/04/17 Furosemide [Lasix] 20 mg PO DAILY 07/04/17 Insulin Aspart [Novolog Flexpen] See Protocol [facility] 07/04/17 Current Medications Generic Name Dose Route Start Last Admin Trade Name Freq PRN Reason Stop Dose Admin Acetaminophen 1,000 mg 07/04/17 17:31 07/05/17 20:00 Tylenol PO 1,000 mg Q8H PRN PRN Administration MILD PAIN (1-3/10) Albuterol/Ipratropium 3 ml 07/06/17 09:00 Duoneb INHALATION Q6HWA.RT [facility] Allopurinol 100 mg 07/05/17 08:00 07/06/17 10:27 Zyloprim PO 100 mg DAILYCM [facility] Administration Aspirin 81 mg 07/05/17 08:00 07/06/17 10:27 Aspirin, Baby PO 81 mg DAILY@0800 [facility] Administration Atorvastatin Calcium 20 mg 07/04/17 22:00 07/05/17 19:57 Lipitor PO 20 mg DAILY@2200 [facility] Administration Bisacodyl 10 mg 07/04/17 17:32 Dulcolax PO DAILY PRN Constipation Carvedilol 3.125 mg 07/04/17 18:00 07/06/17 17:22 Coreg PO 3.125 mg BID [facility] Administration Cefdinir 300 mg 07/06/17 10:00 07/06/17 17:22 Omnicef [Equiv] PO 07/13/17 10:01 300 mg Q12 [facility] Administration Emollient Ointment 1 applic 07/04/17 22:00 07/06/17 05:35 Eucerin Intensive Repair TOPICAL 1 applicatio 599,2199 [facility] Administration Protocol Furosemide 20 mg 07/05/17 06:00 07/06/17 05:34 Lasix PO 20 mg DAILY [facility] Administration Lisinopril 20 mg 07/05/17 06:00 07/06/17 05:34 Zestril PO 20 mg DAILY [facility] Administration Methylprednisolone 4 mg 07/06/17 12:00 07/06/17 17:20 Medrol Dosepak PO 07/11/17 04:59 4 mg 1700 [facility] Administration Taper Nitroglycerin 0.4 mg 07/04/17 13:09 Nitrostat SUBLINGUAL Q5M PRN Chest Pain Nystatin 1 applic 07/04/17 22:00 07/06/17 05:35 Mycostatin Powder TOPICAL 1 applicatio 599,2200 [facility] Administration Protocol Polyethylene Glycol 17 gm 07/05/17 06:00 07/06/17 05:34 Miralax PO Not Given DAILY [facility] Senna/Docusate Sodium 1 tablet 07/04/17 18:00 07/06/17 17:22 Senokot-S, Lidia-Colace PO 1 tablet BID [facility] Administration Tuberculin PPD 5 tu 07/12/17 10:00 Tubersol, Aplisol, Ppd ID 07/12/17 10:01 X1 ONE Warfarin Sodium 2.5 mg/ 4.5 mg 07/04/17 17:00 07/06/17 17:22 Warfarin Sodium 2 mg PO 4.5 mg DAILY@1700 [facility] Administration Problem List Shortness of breath (Acute) Acute on chronic diastolic heart failure (Acute) Coronary artery disease (Chronic) Diabetes mellitus (Chronic) DVT (deep venous thrombosis) (Chronic) Lymphedema (Chronic) Gout (Acute) Vital Signs Temp Pulse Resp BP Pulse Ox 97.7 F L 90 18 157/75 H 99 07/06/17 16:00 07/06/17 16:00 07/06/17 16:00 07/06/17 16:00 07/06/17 16:00 Oxygen Delivery Method Room Air Weight: 76.7 kg Body Mass Index (BMI) 29.0 Sodium 144 mmol/L (136-145) 07/06/17 05:20 Potassium 4.3 mmol/L (3.5-5.1) 07/06/17 05:20 Chloride 108 mmol/L (98-107) H 07/06/17 05:20 Carbon Dioxide 27.0 mmol/L (21.0-32.0) 07/06/17 05:20 Anion Gap 9 (5-15) 07/06/17 05:20 BUN 46 mg/dL (7-18) H 07/06/17 05:20 Creatinine 1.47 mg/dL (0.55-1.02) H 07/06/17 05:20 Est GFR (MDRD) Af Amer 44 mL/min (>60) L 07/06/17 05:20 Est GFR (MDRD) Non-Af 37 mL/min (>60) L 07/06/17 05:20 BUN/Creatinine Ratio 31.3 RATIO (10-20) H 07/06/17 05:20 Glucose 84 mg/dL (70-110) 07/06/17 05:20 Assessment/Plan: Psychotropic Medications: Unnecessary Medications: Bowel Regimen: - Provider Comments Provider responsibility: Provider responsible to enter orders to implement recommendations Provider Comments to Recommendations by Pharmacy: Agree
[2017-07-06 16:00] VITALS: BP 157/75; PULSE 90; RESP 18; TEMP 36.5; O2SAT 99
[2017-07-06] MEDS: Warfarin 2.5 MG, Warfarin 2 MG 4.5 MG PO (17:22)
[2017-07-06] MEDS: Senna/Docusate Sodium 1 Tablet PO (17:22)
[2017-07-06 18:50] VITALS: PULSE 85; RESP 18; O2SAT 95
[2017-07-06] MEDS: Ipratropium/Albuterol Sulfate 3 ML AMPUL.NEB INHALATION (18:50)
--- NOTE | 2017-07-06 19:48 | NURSING ---
Addendum entered by Paris Kline 07/07/17 18:29: DR. KAUR REVIEWED FAXED INFORMATION FROM [facility] Original Note: Addendum entered by Bree Yañez 07/06/17 20:08: Dr Kaur returned phone call to unit. N.O. D/C CT scan. Per Dr Kaur pt had CT scan 1 week ago a [facility]. Original Note: Dr Kaur aware family requesting CT of head d/t hallucinations. N.O. for CT, will send percert.
[2017-07-06] MEDS: Atorvastatin Calcium 20 MG Tablet PO (20:02)
[2017-07-07] MEDS: Carvedilol 3.125 MG TABLET PO ×2 (04:21→17:47)
[2017-07-07] MEDS: Furosemide 20 MG Tablet PO (04:21)
[2017-07-07] MEDS: Cefdinir 300 MG Capsule PO ×2 (04:21→17:47)
[2017-07-07] MEDS: Lisinopril 20 MG Tablet PO (04:21)
[2017-07-07] MEDS: Nystatin Powder 15gm Bottle 1 APPLIC TOPICAL ×2 (04:22→19:58)
[2017-07-07 06:37] LABS: Bedside Glucose 130 mg/dL (70-110)
[2017-07-07 07:43] VITALS: PULSE 88; RESP 18; O2SAT 95
[2017-07-07] MEDS: Ipratropium/Albuterol Sulfate 3 ML AMPUL.NEB INHALATION ×3 (07:43→18:25)
[2017-07-07] MEDS: MethylPREDNISolone DosePak 4 MG BOX PO ×4 (08:38→20:02)
[2017-07-07] MEDS: Allopurinol 100 MG Tablet PO (08:39)
[2017-07-07] MEDS: Aspirin 81 MG TAB.CHEW PO (08:39)
[2017-07-07] MEDS: Acetaminophen 500 MG Tablet 1000 MG PO (09:46)
[2017-07-07 12:55] VITALS: PULSE 80; RESP 18
[2017-07-07 15:31] VITALS: BP 181/85; PULSE 89; RESP 16; TEMP 36.5; O2SAT 98
[2017-07-07] MEDS: Warfarin 2.5 MG, Warfarin 2 MG 4.5 MG PO (17:46)
[2017-07-07 17:56] VITALS: BP 150/66
--- NOTE | 2017-07-07 18:03 | NURSING ---
DR. WHITE REVIEWED VITALS, BP HIGH THIS EVENING, BP MEDS REVIEWED. PT STATING THAT SHE HAS HAD A GASTELUM ALL DAY. DR. WHITE AWARE, N.O. FOR TORADOL AND NORFLEX. PT AND AWARE OF NEW ORDERS.
[2017-07-07 18:25] VITALS: PULSE 90; RESP 16
[2017-07-07] MEDS: Ketorolac 30 MG/ML Syringe IM (19:50)
[2017-07-07] MEDS: Orphenadrine 60 MG/2 ML Ampul IM (19:54)
--- NOTE | 2017-07-07 20:00 | NURSING ---
Patient alert and oriented x 3. Patient pleasant and cooperative with care. Patient continuing to hallucinate. Patient having conversations with children in room as well as petting the dog that is at the end of the bed. This nurse redirecting patient to reality. Patient continuing to go back to hallucinations. Will continue to monitor and assess.
[2017-07-07] MEDS: Atorvastatin Calcium 20 MG Tablet PO (20:02)
[2017-07-08] MEDS: Cefdinir 300 MG Capsule PO ×2 (05:14→16:53)
[2017-07-08] MEDS: Carvedilol 3.125 MG TABLET PO ×2 (05:14→16:52)
[2017-07-08] MEDS: Lisinopril 20 MG Tablet PO (05:14)
[2017-07-08] MEDS: Furosemide 20 MG Tablet PO (05:14)
[2017-07-08] MEDS: Nystatin Powder 15gm Bottle 1 APPLIC TOPICAL ×2 (05:19→21:14)
[2017-07-08 06:31] LABS: Bedside Glucose 120 mg/dL (70-110)
[2017-07-08 07:46] VITALS: PULSE 79; RESP 18; O2SAT 98
[2017-07-08] MEDS: Ipratropium/Albuterol Sulfate 3 ML AMPUL.NEB INHALATION ×3 (07:46→18:50)
[2017-07-08] MEDS: Allopurinol 100 MG Tablet PO (08:34)
[2017-07-08] MEDS: MethylPREDNISolone DosePak 4 MG BOX PO ×4 (08:34→21:15)
[2017-07-08] MEDS: Aspirin 81 MG TAB.CHEW PO (08:34)
--- NOTE | 2017-07-08 08:39 | NURSING ---
Pt calm and cooperative during AM med pass. Able to recall year, city and president during assessment. No c/o hallucinations. Pt. denies pain or discomfort during assessment. Call light within reach. Will continue to monitor.
--- NOTE | 2017-07-08 09:45 | CASEMGMT ---
Plan of care meeting held. Resident present as well as resident family. There has been no discharge date set at this time. Resident plans to continue with further care and treatment on the Transitional Care Unit at this time. Resident plans to discharge home with spouse at time of discharge. Support given. Will continue to follow. Chanell SCHWARZ, HEALTH PROGRAM MANAGER
[2017-07-08 13:48] VITALS: PULSE 72; RESP 18
[2017-07-08 14:59] VITALS: BP 171/87; PULSE 55; RESP 16; TEMP 36.8; O2SAT 98
[2017-07-08] MEDS: Acetaminophen 500 MG Tablet 1000 MG PO (16:00)
[2017-07-08] MEDS: Warfarin 2.5 MG, Warfarin 2 MG 4.5 MG PO (16:52)
[2017-07-08] MEDS: Senna/Docusate Sodium 1 Tablet PO (16:53)
[2017-07-08 18:50] VITALS: PULSE 83; RESP 16
[2017-07-08] MEDS: guaiFENesin Dm 10 ML UDC PO (21:14)
[2017-07-08] MEDS: Atorvastatin Calcium 20 MG Tablet PO (21:15)
[2017-07-09] MEDS: Cefdinir 300 MG Capsule PO ×2 (05:41→17:12)
[2017-07-09] MEDS: Carvedilol 3.125 MG TABLET PO ×2 (05:41→17:12)
[2017-07-09] MEDS: Nystatin Powder 15gm Bottle 1 APPLIC TOPICAL ×2 (05:41→20:57)
[2017-07-09] MEDS: Furosemide 20 MG Tablet PO (05:41)
[2017-07-09] MEDS: Lisinopril 20 MG Tablet PO (05:41)
[2017-07-09 06:06] LABS: Bedside Glucose 101 mg/dL (70-110)
[2017-07-09 06:30] VITALS: PULSE 80; RESP 16; O2SAT 98
[2017-07-09] MEDS: Ipratropium/Albuterol Sulfate 3 ML AMPUL.NEB INHALATION (06:34)
[2017-07-09 06:43] LABS: International Normalized Ratio 4.4
[2017-07-09] MEDS: MethylPREDNISolone DosePak 4 MG BOX PO ×3 (08:15→20:57)
[2017-07-09] MEDS: Allopurinol 100 MG Tablet PO (08:15)
[2017-07-09] MEDS: Aspirin 81 MG TAB.CHEW PO (08:15)
[2017-07-09] MEDS: Acetaminophen 500 MG Tablet 1000 MG PO (08:17)
--- NOTE | 2017-07-09 08:23 | NURSING ---
Addendum entered by Joyce Mason 07/09/17 13:52: Dr Kaur aware of INR 4.4, coumadin adjusted Original Note: pt c/o migraine 6.5/[address] eye area[address] Dr Kaur in and new order for imitrex 50mg daily prn, pharmacy interchange for maxalt 10mg po daily PRN.
[2017-07-09] MEDS: Rizatriptan Benzoate 10 MG Tablet PO (10:01)
--- NOTE | 2017-07-09 12:07 | CASEMGMT ---
Brief interview for mental status (BIMS) and resident mood interview (PHQ-9) completed on this day. BIMS score 13/15. PHQ-9 score 10/23
[2017-07-09] MEDS: guaiFENesin Dm 10 ML UDC PO (14:19)
[2017-07-09 16:00] VITALS: BP 139/73; PULSE 86; RESP 18; TEMP 36.3; O2SAT 97
[2017-07-09] MEDS: Senna/Docusate Sodium 1 Tablet PO (17:12)
[2017-07-09] MEDS: Atorvastatin Calcium 20 MG Tablet PO (20:57)
[2017-07-10] MEDS: Lisinopril 20 MG Tablet PO (05:33)
[2017-07-10] MEDS: Nystatin Powder 15gm Bottle 1 APPLIC TOPICAL ×2 (05:33→21:06)
[2017-07-10] MEDS: Furosemide 20 MG Tablet PO (05:33)
[2017-07-10] MEDS: Carvedilol 3.125 MG TABLET PO ×2 (05:33→17:12)
[2017-07-10] MEDS: Cefdinir 300 MG Capsule PO ×2 (05:34→17:12)
[2017-07-10] MEDS: Rizatriptan Benzoate 10 MG Tablet PO (05:36)
[2017-07-10 06:04] LABS: Prothrombin Time (Protime)PT. 39.1 SECONDS (11.7-14.9)
[2017-07-10 06:19] LABS: International Normalized Ratio 4.2
[2017-07-10 06:51] LABS: Bedside Glucose 107 mg/dL (70-110)
[2017-07-10 06:52] VITALS: O2SAT 96
[2017-07-10] MEDS: MethylPREDNISolone DosePak 4 MG BOX PO ×2 (08:05→21:02)
[2017-07-10] MEDS: Allopurinol 100 MG Tablet PO (08:05)
[2017-07-10] MEDS: Aspirin 81 MG TAB.CHEW PO (08:05)
[2017-07-10] MEDS: guaiFENesin Dm 10 ML UDC PO ×2 (11:37→16:22)
[2017-07-10] MEDS: Acetaminophen 500 MG Tablet 1000 MG PO (11:37)
--- NOTE | 2017-07-10 13:22 | MDS.RN ---
Pain interview for HECTOR 07/11/17 completed.
[2017-07-10 15:50] VITALS: BP 154/87; PULSE 84; RESP 18; TEMP 36.7; O2SAT 100
[2017-07-10] MEDS: Atorvastatin Calcium 20 MG Tablet PO (21:02)
[2017-07-11] MEDS: Furosemide 20 MG Tablet PO (05:40)
[2017-07-11] MEDS: Carvedilol 3.125 MG TABLET PO ×2 (05:40→16:59)
[2017-07-11] MEDS: Lisinopril 20 MG Tablet PO (05:40)
[2017-07-11] MEDS: Cefdinir 300 MG Capsule PO ×2 (05:40→17:00)
[2017-07-11] MEDS: Nystatin Powder 15gm Bottle 1 APPLIC TOPICAL ×2 (05:49→19:59)
[2017-07-11 05:51] VITALS: O2SAT 95
[2017-07-11 07:06] LABS: Bedside Glucose 105 mg/dL (70-110)
[2017-07-11] MEDS: Aspirin 81 MG TAB.CHEW PO (07:59)
[2017-07-11] MEDS: Allopurinol 100 MG Tablet PO (07:59)
[2017-07-11] MEDS: Acetaminophen 500 MG Tablet 1000 MG PO (07:59)
[2017-07-11 13:00] VITALS: BP 122/55; PULSE 83; O2SAT 98
--- NOTE | 2017-07-11 13:00 | NURSING ---
UP TO GO TO [facility] AND BECAME DIZZY, ASSISTED TO SIT IN CHAIR FOR A FEW MINUTES THEN FELT BETTER, VSS.
[2017-07-11] MEDS: Rizatriptan Benzoate 10 MG Tablet PO (14:49)
[2017-07-11 15:54] VITALS: BP 147/71; BP 152/69; BP 96/56; PULSE 81; PULSE 84; PULSE 91
[2017-07-11 16:14] VITALS: BP 147/80; PULSE 90; RESP 18; TEMP 36.4; O2SAT 98
[2017-07-11] MEDS: Senna/Docusate Sodium 1 Tablet PO (17:00)
--- NOTE | 2017-07-11 17:16 | NURSING ---
Dr. Kaur updated that pt has felt dizzy today. Orthostatic blood pressures and daily weights reviewed. Lasix and fluid restriction discontinued. Encourage fluids. Pt, daughter and all aware. Labs on 07/13/17. Cont to monitor.
[2017-07-11] MEDS: Atorvastatin Calcium 20 MG Tablet PO (20:00)
[2017-07-12] MEDS: Acetaminophen 500 MG Tablet 1000 MG PO ×2 (03:25→20:00)
[2017-07-12] MEDS: Lisinopril 20 MG Tablet PO (04:44)
[2017-07-12] MEDS: Cefdinir 300 MG Capsule PO ×2 (04:44→16:24)
[2017-07-12] MEDS: Carvedilol 3.125 MG TABLET PO ×2 (04:44→16:24)
[2017-07-12] MEDS: Senna/Docusate Sodium 1 Tablet PO (04:44)
[2017-07-12] MEDS: Nystatin Powder 15gm Bottle 1 APPLIC TOPICAL ×2 (04:45→20:01)
[2017-07-12 07:06] LABS: Bedside Glucose 110 mg/dL (70-110)
[2017-07-12] MEDS: Aspirin 81 MG TAB.CHEW PO (08:25)
[2017-07-12] MEDS: Allopurinol 100 MG Tablet PO (08:25)
[2017-07-12 09:33] VITALS: BP 93/43; PULSE 83; RESP 18; TEMP 36.4; O2SAT 96
[2017-07-12] MEDS: 0.9% Normal Saline 1,000 ML 999 ML IV (09:45)
[2017-07-12 11:09] VITALS: BP 114/67; PULSE 83
[2017-07-12] MEDS: Tuberculin,Purif.prot.deriv. 50 TU/ML Vial 5 ML ID (11:18)
--- NOTE | 2017-07-12 11:21 | NURSING ---
Addendum entered by Paris Kline 07/12/17 13:31: Daughter here and aware. Original Note: Pt stating that she feels dizzy again today, also stating that her vision is blurred this morning. Assessed by this nurse and MO Phillips. Denies pain. Vitals taken, BP 93/43. Denies SOB. Dr. Karu notified and N.O. to give a 1L fluid bolus. Vitals reassessed after bolus, BP 114/67 and HR 83, pt stating now that she has a headache. Pharmacy notified to send PRN Maxalt d/t none on floor. Continuing to monitor.
[2017-07-12] MEDS: Rizatriptan Benzoate 10 MG Tablet PO (13:17)
[2017-07-12 15:48] VITALS: BP 140/70; BP 143/71; BP 153/60; PULSE 85; PULSE 86
[2017-07-12] MEDS: Mag Hydrox/Al Hydrox/Simeth 30 ML UDC PO (16:24)
[2017-07-12] MEDS: Atorvastatin Calcium 20 MG Tablet PO (20:00)
[2017-07-12] MEDS: guaiFENesin Dm 10 ML UDC PO (22:31)
[2017-07-13] MEDS: Nystatin Powder 15gm Bottle 1 APPLIC TOPICAL ×2 (05:20→21:04)
[2017-07-13] MEDS: Lisinopril 20 MG Tablet PO (05:20)
[2017-07-13] MEDS: Senna/Docusate Sodium 1 Tablet PO (05:20)
[2017-07-13] MEDS: Cefdinir 300 MG Capsule PO (05:20)
[2017-07-13] MEDS: Carvedilol 3.125 MG TABLET PO ×2 (05:20→16:55)
[2017-07-13 06:06] LABS: Absolute Lymphocyte Count 1.68 X10^3/ul (0.83-4.51); Absolute Neutrophil Count 6.3 X10^3/uL (2.0-7.7); Basophil# 0.01 X10^3/uL; Basophil% 0.1 % (0-1); Eosinophil# 0.34 X10^3/uL; Eosinophils% 3.7 % (0-5); Hematocrit 37.5 % (37-47); Hemoglobin 11.6 g/dl (12.0-15.0); Lymphocyte # 1.68 X10^3/ul (4.0); Lymphocyte % 18.3 % (19-41); Mean Corp Hgb Conc 30.9 g/gl (32-36); Mean Corpuscular Hgb 26.3 pg (27.0-32.0); Mean Platelet Vol. 12.5 fl (6.2-12.0); Monocyte# 0.82 X10^3/uL; Monocyte% 8.9 % (0-10); Neutrophil # 6.32 X10^3/uL (2.7-7.7); Neutrophil % 68.7 % (47-70); Platelet Count 159 K/mm3 (150-450); RBC Distribution Width CV 18.1 % (11.6-14.6); RBC Distribution Width SD 55.1 fl (35.1-43.9); Red Blood Count 4.41 M/mm3 (4.2-5.4); White Blood Count 9.2 K/mm3 (4.4-11.0)
[2017-07-13 06:16] LABS: International Normalized Ratio 3.4; Prothrombin Time (Protime)PT. 33.1 SECONDS (11.7-14.9)
[2017-07-13 06:25] LABS: Anion Gap 10 (5-15); BUN 87 mg/dL (7-18); BUN/Creat Ratio 36.7 RATIO (10-20); Calcium,Total 8.8 mg/dL (8.5-10.1); Chloride 109 mmol/L (98-107); Creatinine, Serum 2.37 mg/dL (0.55-1.02); EST Glomerular Filtration Rate 21 mL/min (>60); Est Glom Filt Rate - Afr Amer 26 mL/min (>60); Estimated Creatinine Clearance 16.89 ml/min; Glucose 76 mg/dL (70-110); Potassium 4.4 mmol/L (3.5-5.1); Sodium Level 141 mmol/L (136-145)
[2017-07-13 06:30] LABS: Bedside Glucose 81 mg/dL (70-110)
[2017-07-13 06:38] LABS: POSITIVE COUNT NO; POSITIVE DIFFERENTIAL NO; POSITIVE MORPHOLOGY NO
[2017-07-13] MEDS: 0.9% Normal Saline 1,000 ML 60 ML IV (08:51)
[2017-07-13] MEDS: Aspirin 81 MG TAB.CHEW PO (08:56)
[2017-07-13] MEDS: Allopurinol 100 MG Tablet PO (08:56)
[2017-07-13] MEDS: Acetaminophen 500 MG Tablet 1000 MG PO ×2 (08:59→21:03)
[2017-07-13] MEDS: guaiFENesin Dm 10 ML UDC PO ×2 (08:59→21:03)
[2017-07-13] MEDS: Rizatriptan Benzoate 10 MG Tablet PO (15:16)
[2017-07-13 16:00] VITALS: BP 143/43; PULSE 89; RESP 20; TEMP 36.8; O2SAT 98
[2017-07-13 19:30] VITALS: PULSE 78; RESP 18
[2017-07-13] MEDS: Ipratropium/Albuterol Sulfate 3 ML AMPUL.NEB INHALATION (19:30)
[2017-07-13] MEDS: Atorvastatin Calcium 20 MG Tablet PO (21:04)
[2017-07-14] MEDS: 0.9% Normal Saline 1,000 ML 60 ML IV ×2 (02:17→19:40)
[2017-07-14] MEDS: Senna/Docusate Sodium 1 Tablet PO (04:35)
[2017-07-14] MEDS: Polyethylene Glycol 3350 17 GM PACKET PO (04:35)
[2017-07-14] MEDS: Carvedilol 3.125 MG TABLET PO ×2 (04:35→17:02)
[2017-07-14] MEDS: Nystatin Powder 15gm Bottle 1 APPLIC TOPICAL ×2 (04:35→19:41)
[2017-07-14] MEDS: Lisinopril 20 MG Tablet PO (04:35)
[2017-07-14 07:06] LABS: Bedside Glucose 69 mg/dL (70-110)
[2017-07-14 07:11] LABS: Bedside Glucose 75 mg/dL (70-110)
[2017-07-14] MEDS: Aspirin 81 MG TAB.CHEW PO (07:53)
[2017-07-14] MEDS: Allopurinol 100 MG Tablet PO (07:53)
[2017-07-14] MEDS: Rizatriptan Benzoate 10 MG Tablet PO (10:46)
[2017-07-14] MEDS: guaiFENesin Dm 10 ML UDC PO ×2 (12:12→19:41)
[2017-07-14] MEDS: Acetaminophen 500 MG Tablet 1000 MG PO (13:38)
--- NOTE | 2017-07-14 13:39 | NURSING ---
Reports having a headache. Back from therapy and back in chair.
[2017-07-14 15:35] VITALS: BP 132/63; PULSE 71; RESP 16; TEMP 36.2; O2SAT 100
--- NOTE | 2017-07-14 15:41 | CHAPLAIN ---
Type of Pastoral Visit _x__ Initial Visit ___ Follow-up Visit ___ On-call Visit ___ General Patient Visit ___ Spiritual Assessment ___ Family Conference ___ Bereavement ___ Rapid Response ___ Code Blue ___ Other (describe below) Pastoral Care Referral From _x__ Patient ___ Family _x__ Nurse ___ Physician ___ Services Mgr ___ Accounting Teacher ___ Other (describe below) Sacrament/Intervention _x__ Active listening ___ Anointing ___ Gnosticism _x__ Bereavement ___ Communion _x__ Corrina exploration ___ _x__ Life review _x__ Prayer ___ Reconciliation ___ Sacrament of Sick _x__ Supportive presence ___ Wedding ___ Other (describe below) Pastoral Comments patient had revealed difficulty with grief issues with nurse and agreed that she would like to speak to a soda dispenser about that; pt says that I lost my son last month, I have a bad marriage, and I have bad health; pt describes her feelings as sadness; RN came in to do vitals; throughout time with RN pt made apologies and said I'm sorry; both RN and this soda dispenser noted that she does not need to 'be sorry for anything'; pt says that she is always apologizing to people for everything she does, because of her situation; pt says that she tries to do good and says I have to believe that I will see my two () sons again in [facility]...so I have to be good; we talked about grief, about 'resting in God' more than 'performing for God'; gave presence and time; we talked about her recently son; I offered prayer; pt said that she had to stop talking about it now because she would lose control if I don't; pt says she does not want to cry or be sad in front of other people; offered future follow up as desired by pt; pt agreed that would be good
[2017-07-14] MEDS: Atorvastatin Calcium 20 MG Tablet PO (19:41)
[2017-07-15] MEDS: Carvedilol 3.125 MG TABLET PO ×2 (05:14→17:03)
[2017-07-15] MEDS: Lisinopril 20 MG Tablet PO (05:15)
[2017-07-15] MEDS: Nystatin Powder 15gm Bottle 1 APPLIC TOPICAL ×2 (05:15→21:16)
[2017-07-15 06:28] VITALS: PULSE 70; O2SAT 99
[2017-07-15 07:21] LABS: Bedside Glucose 82 mg/dL (70-110)
[2017-07-15] MEDS: Aspirin 81 MG TAB.CHEW PO (07:49)
[2017-07-15] MEDS: Allopurinol 100 MG Tablet PO (07:49)
[2017-07-15 08:11] LABS: Anion Gap 9 (5-15); BUN 63 mg/dL (7-18); BUN/Creat Ratio 38.9 RATIO (10-20); Calcium,Total 8.5 mg/dL (8.5-10.1); Chloride 118 mmol/L (98-107); Creatinine, Serum 1.62 mg/dL (0.55-1.02); EST Glomerular Filtration Rate 33 mL/min (>60); Est Glom Filt Rate - Afr Amer 40 mL/min (>60); Estimated Creatinine Clearance 24.71 ml/min; Glucose 74 mg/dL (70-110); Potassium 4.9 mmol/L (3.5-5.1); Sodium Level 145 mmol/L (136-145)
[2017-07-15] MEDS: 0.9% Normal Saline 1,000 ML 60 ML IV (12:49)
--- NOTE | 2017-07-15 14:44 | MDS.RN ---
Information for the mds was obtained from review of the clinical record, interview of resident, staff, and direct observation of resident's care.
[2017-07-15 15:57] VITALS: BP 126/68; PULSE 56; RESP 18; TEMP 36.4; O2SAT 98
[2017-07-15] MEDS: Senna/Docusate Sodium 1 Tablet PO (17:03)
[2017-07-15] MEDS: guaiFENesin Dm 10 ML UDC PO (17:07)
[2017-07-15] MEDS: Acetaminophen 500 MG Tablet 1000 MG PO (18:39)
[2017-07-16] MEDS: Lisinopril 20 MG Tablet PO (05:29)
[2017-07-16] MEDS: Carvedilol 3.125 MG TABLET PO ×2 (05:29→17:02)
[2017-07-16] MEDS: Nystatin Powder 15gm Bottle 1 APPLIC TOPICAL ×2 (05:31→21:16)
[2017-07-16 06:16] LABS: International Normalized Ratio 2.5; Prothrombin Time (Protime)PT. 25.8 SECONDS (11.7-14.9)
[2017-07-16 06:56] LABS: Bedside Glucose 84 mg/dL (70-110)
[2017-07-16] MEDS: Aspirin 81 MG TAB.CHEW PO (09:14)
[2017-07-16] MEDS: Allopurinol 100 MG Tablet PO (09:14)
--- NOTE | 2017-07-16 14:55 | MDS.RN ---
Pain interview for HECTOR 07/18/17 completed.
[2017-07-16] MEDS: Acetaminophen 500 MG Tablet 1000 MG PO (15:06)
[2017-07-16 16:00] VITALS: BP 107/65; PULSE 87; RESP 20; TEMP 36.8; O2SAT 98
[2017-07-16] MEDS: Senna/Docusate Sodium 1 Tablet PO (17:02)
[2017-07-16] MEDS: Polyethylene Glycol 3350 17 GM PACKET PO (17:02)
--- NOTE | 2017-07-16 17:28 | NURSING ---
NNO from INR result.
[2017-07-16] MEDS: Atorvastatin Calcium 20 MG Tablet PO (21:13)
[2017-07-16] MEDS: guaiFENesin Dm 10 ML UDC PO (21:16)
[2017-07-17 04:51] VITALS: BP 164/86; PULSE 85
[2017-07-17] MEDS: Lisinopril 20 MG Tablet PO (04:52)
[2017-07-17] MEDS: Carvedilol 3.125 MG TABLET PO ×2 (04:52→16:45)
[2017-07-17] MEDS: guaiFENesin Dm 10 ML UDC PO (04:53)
[2017-07-17] MEDS: Nystatin Powder 15gm Bottle 1 APPLIC TOPICAL ×2 (04:53→20:17)
[2017-07-17 07:11] LABS: Bedside Glucose 79 mg/dL (70-110)
[2017-07-17 08:46] LABS: Anion Gap 8 (5-15); BUN 42 mg/dL (7-18); BUN/Creat Ratio 28.4 RATIO (10-20); Calcium,Total 9.1 mg/dL (8.5-10.1); Chloride 110 mmol/L (98-107); Creatinine, Serum 1.48 mg/dL (0.55-1.02); EST Glomerular Filtration Rate 36 mL/min (>60); Est Glom Filt Rate - Afr Amer 44 mL/min (>60); Estimated Creatinine Clearance 27.05 ml/min; Glucose 84 mg/dL (70-110); Sodium Level 139 mmol/L (136-145)
[2017-07-17] MEDS: Aspirin 81 MG TAB.CHEW PO (09:11)
[2017-07-17] MEDS: Allopurinol 100 MG Tablet PO (09:11)
--- NOTE | 2017-07-17 11:37 | CASEMGMT ---
Brief interview for mental status (BIMS) and resident mood interview (PHQ-9) completed on this day. BIMS score 13/15. PHQ-9 score
--- NOTE | 2017-07-17 15:15 | PCM.TCUNOT ---
Subjective: Resident sitting in chair in room. She is pleasant. No chest pain, no shortness of breath, mild shortness of breath with walking up stairs in therapy. Mild swelling of lower extremities controlled with OCTAVIANO wraps. On admission, she had visual and auditory hallucinations. Her last hallucination was of cats running around, but she has not seen any recently. She walks well in therapy, I let her know I expect she will go home some time next week. She did mention her is the most insensitive, uncompassionate person in the world, but I did not ask her to elaborate. Vitals/I&O's: Vital Signs Temp Pulse Resp BP Pulse Ox 98.2 F 85 20 H 164/86 H 98 07/16/17 16:00 07/17/17 04:51 07/16/17 16:00 07/17/17 04:51 07/16/17 16:00 Oxygen Delivery Method Room Air Weight: 77.65 kg Body Mass Index (BMI) 29.0 Orthostatic Vital Signs Start: 07/11/17 15:54 Freq: Status: Active Protocol: Activity Type Activity Date Activity User E-Sign Co-Sign Detail Recorded Client Recorded Date Recorded By Document 07/12/17 15:48 [facility] [id number] 07/12/17 15:49 [facility] 07/12/17 15:48 Orthostatic Vitals Standing -Blood Pressure (90/60-120/80) 153/60 H -Extremity Use Left Arm -Pulse Rate (60-100) 85 Sitting -Blood Pressure (90/60-120/80) 140/70 H -Extremity Use Left Arm -Pulse Rate (60-100) 85 Lying -Blood Pressure (90/60-120/80) 143/71 H -Extremity Use Left Arm -Pulse Rate (60-100) 86 Intake and Output for Last 24 Hours 07/15/17 07/16/17 07/17/17 23:59 23:59 23:59 Intake Total 720 / 720 960 / 960 480 / 480 Balance 720 / 720 960 / 960 480 / 480 Laboratory Results 07/17/17 06:33: POC Glucose 79 07/17/17 08:10: Sodium 139, Potassium 5.0, Chloride 110 H, Carbon Dioxide 21.0, Anion Gap 8, BUN 42 H, Creatinine 1.48 H, Estim Creat Clear Calc 27.05, Est GFR (MDRD) Af Amer 44 L, Est GFR (MDRD) Non-Af 36 L, BUN/Creatinine Ratio 28.4 H, Glucose 84, Calcium 9.1 Past Medical History Past Medical History (Chronic Problems): Chronic Problems Peripheral edema (Chronic) Venous (peripheral) insufficiency (Chronic) Peripheral vascular disease (Chronic) CHF (congestive heart failure) (Chronic) Diabetes type 2, controlled (Chronic) Hypertension (Chronic) Hyperlipidemia (Chronic) Atherosclerotic heart disease of [place] coronary artery without angina pectoris (Chronic) Presence of cardiac pacemaker (Chronic) Presence of prosthetic heart valve (Chronic) S/P AAA (abdominal aortic aneurysm) repair (Chronic) Ulcer, venous stasis, left (Chronic) left medial ankle Lymphedema of both lower extremities (Chronic) Venous hypertension, chronic, with inflammation (Chronic) History of DVT (deep vein thrombosis) (Chronic) Postphlebetic syndrome with inflammation (Chronic) Leg swelling (Chronic) Osteoarthritis (Chronic) Venous stasis dermatitis (Chronic) A-fib (Chronic) Coronary artery disease (Chronic) Diabetes mellitus (Chronic) DVT (deep venous thrombosis) (Chronic) Lymphedema (Chronic) Allergies duloxetine [From Cymbalta] Allergy (Verified 05/02/16 14:48) Other Penicillins Allergy (Verified 05/02/16 14:48) Hives terbutaline [From Brethine] Allergy (Verified 05/02/16 14:48) Shortness of breath tolmetin Adverse Reaction (Verified 05/02/16 14:48) Unknown Home Medications: Ambulatory Orders Medication Instructions Recorded Allopurinol [Zyloprim] 100 mg PO DAILYCM 05/02/16 Aspirin 81 mg PO DAILY 05/02/16 Nitroglycerin [Nitrostat] 0.4 mg SUBLINGUAL Q5M PRN 05/02/16 Oxycodone HCl/Acetaminophen 1 tablet PO Q6H PRN PRN 05/02/16 [Percocet 5-325] Rosuvastatin Calcium [Crestor] 10 mg PO DAILY 05/02/16 Warfarin [Coumadin] 3 mg PO MOWEFR 05/02/16 Warfarin [Coumadin] 6 mg PO SUTUTH 05/02/16 DiphenhydrAMINE [Benadryl] 25 mg PO DAILY PRN 04/27/17 Quinapril HCl [Accupril] 20 mg PO DAILY 06/30/17 Carvedilol [Coreg (Beta Luci)] 3.125 mg PO BID 07/04/17 Furosemide [Lasix] 20 mg PO DAILY 07/04/17 Insulin Aspart [Novolog Flexpen] See Protocol [facility] 07/04/17 Surgical History: angioplasty, coronary bypass surgery - x 2., hysterectomy, pacemaker implantation, - - Aortic valve replacement, AAA repair endoluminal. 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 Lives: Spouse/ Significant Other Smoking Status: Former smoker Tobacco Use: Non-smoker Alcohol: None Drugs: None - *Family History Maternal History Items: Cancer, Diabetes, Heart Disease Paternal History Items: Cancer, Diabetes Review of Systems Constitutional: Denies: Chills, Fever, Weight Change HEENT: Denies: Head Aches, Sinus Congestion, Sinus Drainage Cardiovascular: Denies: Chest Pain, Palpitations Respiratory: Denies: Cough, Shortness of breath at rest, Sputum production Gastrointestinal: Denies: Abdominal Pain, Nausea, Vomiting Genitourinary: Denies: Dysuria Musculoskeletal: Denies: Joint Pain, Joint Tenderness Skin: Denies: Rash, Wounds Neurological: Denies: Numbness, Tingling, Focal weakness Psychiatric: Denies: Anxiety, Depression, Homicidal Ideations, Suicidal Ideations Hematologic/ Lymphatic: Denies: Easy Bruising, Easy Bleeding Patient Problems: Active and Suspected Problems Shortness of breath (Acute) Acute on chronic diastolic heart failure (Acute) Gout (Acute) - Physical Exam General: Alert, Oriented x3, Cooperative HEENT: Atraumatic, PERRLA, EOMI, Normocephalic Neck: Supple, No JVD, Negative Carotid Bruits Lungs: Clear to auscultation, Normal air movement Cardiovascular: Regular rate, No murmurs Abdomen: Bowel Sounds Present, Soft, Non Tender Extremities: Capillary Refill Less than 3 Seconds, Edema - Mild swelling of bilateral lower extremities. Skin: No rashes, No breakdown Musculoskeletal: No Tenderness to Palpation of Joints or Extremities Neurological: Cranial nerves II-XII grossly intact Psych/Mental Status: Normal Affect, Appropriate Vital Signs Temp Pulse Resp BP Pulse Ox 98.2 F 85 20 H 164/86 H 98 07/16/17 16:00 07/17/17 04:51 07/16/17 16:00 07/17/17 04:51 07/16/17 16:00 Oxygen Delivery Method Room Air Weight: 77.65 kg Body Mass Index (BMI) 29.0 Orthostatic Vital Signs Start: 07/11/17 15:54 Freq: Status: Active Protocol: Activity Type Activity Date Activity User E-Sign Co-Sign Detail Recorded Client Recorded Date Recorded By Document 07/12/17 15:48 [facility] [id number] 07/12/17 15:49 LJ 07/12/17 15:48 Orthostatic Vitals Standing -Blood Pressure (90/60-120/80) 153/60 H -Extremity Use Left Arm -Pulse Rate (60-100) 85 Sitting -Blood Pressure (90/60-120/80) 140/70 H -Extremity Use Left Arm -Pulse Rate (60-100) 85 Lying -Blood Pressure (90/60-120/80) 143/71 H -Extremity Use Left Arm -Pulse Rate (60-100) 86 Intake and Output for Last 24 Hours 07/15/17 07/16/17 07/17/17 23:59 23:59 23:59 Intake Total 720 / 720 960 / 960 480 / 480 Balance 720 / 720 960 / 960 480 / 480 Laboratory Tests Past 24 Hrs 07/17/17 08:10 Sodium 139 Potassium 5.0 Chloride 110 H Carbon Dioxide 21.0 Anion Gap 8 BUN 42 H Creatinine 1.48 H Estim Creat Clear Calc 27.05 Est GFR (MDRD) Af Amer 44 L Est GFR (MDRD) Non-Af 36 L BUN/Creatinine Ratio 28.4 H Glucose 84 Calcium 9.1 POC Glucose 07/17/17 06:33 POC Glucose 79 Assessment/Plan Active and Suspected Problems Shortness of breath (Acute) Acute on chronic diastolic heart failure (Acute) Gout (Acute) 77 year old female with below past medical history hospitalized for acute on chronic diastolic heart failure, complicated by auditory and visual hallucinations from encephalopathy, severe stress, admitted to TCU or rehabilitation, strengthening, prior to discharge home with spouse. Debility - PT/OT. Pain - Tylenol 1000MG Q8H PRN mild pain. Bowel - Miralax 17GM daily, Dulcolax 10MG PO daily PRN, stop Senna/colace, resident states she was in the bathroom having BM all last night. DVT prophylaxis - Not necessary, already on warfarin. Gout - Allopurinol 100MG daily. Coronary artery disease - Coreg 3.125MG BID, Lisinopril 20MG daily, Aspirin 81MG daily, NTG 0.4MG SL Q5M PRN. Hyperlipidemia - Atorvastatin 20MG daily. Atrial Fibrillation - Coreg 3.125MG BID, Warfarin 2MG daily, INR yesterday 2.5. Skin irritation - Eucerin intensive repair BID bilateral lower extremities. Acute on chronic diastolic heart failure - Coreg 3.125MG BID, Lisinopril 20MG daily, Lasix 20MG daily. Nutrition - Glucerna Shake 120ML TIDCM. Tinea Corporis - Nystatin BID abdominal folds. Bronchitis - Resolved with treatment, stop Duoneb. Migraine headache - Maxalt 10MG daily PRN.
[2017-07-17] MEDS: Acetaminophen 500 MG Tablet 1000 MG PO (15:22)
--- NOTE | 2017-07-17 15:25 | PN_ITS ---
Subjective: Resident sitting in chair in room. She is pleasant. No chest pain, no shortness of breath, mild shortness of breath with walking up stairs in therapy. Mild swelling of lower extremities controlled with OCTAVIANO wraps. On admission, she had visual and auditory hallucinations. Her last hallucination was of cats running around, but she has not seen any recently. She walks well in therapy, I let her know I expect she will go home some time next week. She did mention her is the most insensitive, uncompassionate person in the world, but I did not ask her to elaborate. Vitals/I&O's: Vital Signs Temp Pulse Resp BP Pulse Ox 98.2 F 85 20 H 164/86 H 98 07/16/17 16:00 07/17/17 04:51 07/16/17 16:00 07/17/17 04:51 07/16/17 16:00 Oxygen Delivery Method Room Air Weight: 77.65 kg Body Mass Index (BMI) 29.0 Orthostatic Vital Signs Start: 07/11/17 15:54 Freq: Status: Active Protocol: Activity Type Activity Date Activity User E-Sign Co-Sign Detail Recorded Client Recorded Date Recorded By Document 07/12/17 15:48 [facility] [id number] 07/12/17 15:49 [facility] 07/12/17 15:48 Orthostatic Vitals Standing -Blood Pressure (90/60-120/80) 153/60 H -Extremity Use Left Arm -Pulse Rate (60-100) 85 Sitting -Blood Pressure (90/60-120/80) 140/70 H -Extremity Use Left Arm -Pulse Rate (60-100) 85 Lying -Blood Pressure (90/60-120/80) 143/71 H -Extremity Use Left Arm -Pulse Rate (60-100) 86 Intake and Output for Last 24 Hours 07/15/17 07/16/17 07/17/17 23:59 23:59 23:59 Intake Total 720 / 720 960 / 960 480 / 480 Balance 720 / 720 960 / 960 480 / 480 Laboratory Results 07/17/17 06:33: POC Glucose 79 07/17/17 08:10: Sodium 139, Potassium 5.0, Chloride 110 H, Carbon Dioxide 21.0, Anion Gap 8, BUN 42 H, Creatinine 1.48 H, Estim Creat Clear Calc 27.05, Est GFR (MDRD) Af Amer 44 L, Est GFR (MDRD) Non-Af 36 L, BUN/Creatinine Ratio 28.4 H, Glucose 84, Calcium 9.1 Past Medical History Past Medical History (Chronic Problems): Chronic Problems Peripheral edema (Chronic) Venous (peripheral) insufficiency (Chronic) Peripheral vascular disease (Chronic) CHF (congestive heart failure) (Chronic) Diabetes type 2, controlled (Chronic) Hypertension (Chronic) Hyperlipidemia (Chronic) Atherosclerotic heart disease of [place] coronary artery without angina pectoris (Chronic) Presence of cardiac pacemaker (Chronic) Presence of prosthetic heart valve (Chronic) S/P AAA (abdominal aortic aneurysm) repair (Chronic) Ulcer, venous stasis, left (Chronic) left medial ankle Lymphedema of both lower extremities (Chronic) Venous hypertension, chronic, with inflammation (Chronic) History of DVT (deep vein thrombosis) (Chronic) Postphlebetic syndrome with inflammation (Chronic) Leg swelling (Chronic) Osteoarthritis (Chronic) Venous stasis dermatitis (Chronic) A-fib (Chronic) Coronary artery disease (Chronic) Diabetes mellitus (Chronic) DVT (deep venous thrombosis) (Chronic) Lymphedema (Chronic) Allergies duloxetine [From Cymbalta] Allergy (Verified 05/02/16 14:48) Other Penicillins Allergy (Verified 05/02/16 14:48) Hives terbutaline [From Brethine] Allergy (Verified 05/02/16 14:48) Shortness of breath tolmetin Adverse Reaction (Verified 05/02/16 14:48) Unknown Home Medications: Ambulatory Orders Medication Instructions Recorded Allopurinol [Zyloprim] 100 mg PO DAILYCM 05/02/16 Aspirin 81 mg PO DAILY 05/02/16 Nitroglycerin [Nitrostat] 0.4 mg SUBLINGUAL Q5M PRN 05/02/16 Oxycodone HCl/Acetaminophen 1 tablet PO Q6H PRN PRN 05/02/16 [Percocet 5-325] Rosuvastatin Calcium [Crestor] 10 mg PO DAILY 05/02/16 Warfarin [Coumadin] 3 mg PO MOWEFR 05/02/16 Warfarin [Coumadin] 6 mg PO SUTUTH 05/02/16 DiphenhydrAMINE [Benadryl] 25 mg PO DAILY PRN 04/27/17 Quinapril HCl [Accupril] 20 mg PO DAILY 06/30/17 Carvedilol [Coreg (Beta Luci)] 3.125 mg PO BID 07/04/17 Furosemide [Lasix] 20 mg PO DAILY 07/04/17 Insulin Aspart [Novolog Flexpen] See Protocol [facility] 07/04/17 Surgical History: angioplasty, coronary bypass surgery - x 2., hysterectomy, pacemaker implantation, - - Aortic valve replacement, AAA repair endoluminal. 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 Lives: Spouse/ Significant Other Smoking Status: Former smoker Tobacco Use: Non-smoker Alcohol: None Drugs: None - *Family History Maternal History Items: Cancer, Diabetes, Heart Disease Paternal History Items: Cancer, Diabetes Review of Systems Constitutional: Denies: Chills, Fever, Weight Change HEENT: Denies: Head Aches, Sinus Congestion, Sinus Drainage Cardiovascular: Denies: Chest Pain, Palpitations Respiratory: Denies: Cough, Shortness of breath at rest, Sputum production Gastrointestinal: Denies: Abdominal Pain, Nausea, Vomiting Genitourinary: Denies: Dysuria Musculoskeletal: Denies: Joint Pain, Joint Tenderness Skin: Denies: Rash, Wounds Neurological: Denies: Numbness, Tingling, Focal weakness Psychiatric: Denies: Anxiety, Depression, Homicidal Ideations, Suicidal Ideations Hematologic/ Lymphatic: Denies: Easy Bruising, Easy Bleeding Patient Problems: Active and Suspected Problems Shortness of breath (Acute) Acute on chronic diastolic heart failure (Acute) Gout (Acute) - Physical Exam General: Alert, Oriented x3, Cooperative HEENT: Atraumatic, PERRLA, EOMI, Normocephalic Neck: Supple, No JVD, Negative Carotid Bruits Lungs: Clear to auscultation, Normal air movement Cardiovascular: Regular rate, No murmurs Abdomen: Bowel Sounds Present, Soft, Non Tender Extremities: Capillary Refill Less than 3 Seconds, Edema - Mild swelling of bilateral lower extremities. Skin: No rashes, No breakdown Musculoskeletal: No Tenderness to Palpation of Joints or Extremities Neurological: Cranial nerves II-XII grossly intact Psych/Mental Status: Normal Affect, Appropriate Vital Signs Temp Pulse Resp BP Pulse Ox 98.2 F 85 20 H 164/86 H 98 07/16/17 16:00 07/17/17 04:51 07/16/17 16:00 07/17/17 04:51 07/16/17 16:00 Oxygen Delivery Method Room Air Weight: 77.65 kg Body Mass Index (BMI) 29.0 Orthostatic Vital Signs Start: 07/11/17 15:54 Freq: Status: Active Protocol: Activity Type Activity Date Activity User E-Sign Co-Sign Detail Recorded Client Recorded Date Recorded By Document 07/12/17 15:48 [facility]RACH[facility] [id number] 07/12/17 15:49 L[facility] 07/12/17 15:48 Orthostatic Vitals Standing -Blood Pressure (90/60-120/80) 153/60 H -Extremity Use Left Arm -Pulse Rate (60-100) 85 Sitting -Blood Pressure (90/60-120/80) 140/70 H -Extremity Use Left Arm -Pulse Rate (60-100) 85 Lying -Blood Pressure (90/60-120/80) 143/71 H -Extremity Use Left Arm -Pulse Rate (60-100) 86 Intake and Output for Last 24 Hours 07/15/17 07/16/17 07/17/17 23:59 23:59 23:59 Intake Total 720 / 720 960 / 960 480 / 480 Balance 720 / 720 960 / 960 480 / 480 Laboratory Tests Past 24 Hrs 07/17/17 08:10 Sodium 139 Potassium 5.0 Chloride 110 H Carbon Dioxide 21.0 Anion Gap 8 BUN 42 H Creatinine 1.48 H Estim Creat Clear Calc 27.05 Est GFR (MDRD) Af Amer 44 L Est GFR (MDRD) Non-Af 36 L BUN/Creatinine Ratio 28.4 H Glucose 84 Calcium 9.1 POC Glucose 07/17/17 06:33 POC Glucose 79 Assessment/Plan Active and Suspected Problems Shortness of breath (Acute) Acute on chronic diastolic heart failure (Acute) Gout (Acute) 77 year old female with below past medical history hospitalized for acute on chronic diastolic heart failure, complicated by auditory and visual hallucinations from encephalopathy, severe stress, admitted to TCU or rehabilitation, strengthening, prior to discharge home with spouse. * Debility - PT/OT. * Pain - Tylenol 1000MG Q8H PRN mild pain. * Bowel - Miralax 17GM daily, Dulcolax 10MG PO daily PRN, stop Senna/colace, resident states she was in the bathroom having BM all last night. * DVT prophylaxis - Not necessary, already on warfarin. * Gout - Allopurinol 100MG daily. * Coronary artery disease - Coreg 3.125MG BID, Lisinopril 20MG daily, Aspirin 81MG daily, NTG 0.4MG SL Q5M PRN. * Hyperlipidemia - Atorvastatin 20MG daily. * Atrial Fibrillation - Coreg 3.125MG BID, Warfarin 2MG daily, INR yesterday 2.5. * Skin irritation - Eucerin intensive repair BID bilateral lower extremities. * Acute on chronic diastolic heart failure - Coreg 3.125MG BID, Lisinopril 20MG daily, Lasix 20MG daily. * Nutrition - Glucerna Shake 120ML TIDCM. * Tinea Corporis - Nystatin BID abdominal folds. * Bronchitis - Resolved with treatment, stop Duoneb. * Migraine headache - Maxalt 10MG daily PRN.
[2017-07-17 15:41] VITALS: BP 151/69; PULSE 75; RESP 18; TEMP 36.8; O2SAT 99
[2017-07-17] MEDS: Atorvastatin Calcium 20 MG Tablet PO (20:17)
[2017-07-17] MEDS: Rizatriptan Benzoate 10 MG Tablet PO (20:18)
[2017-07-18] MEDS: Acetaminophen 500 MG Tablet 1000 MG PO ×2 (04:00→20:23)
[2017-07-18] MEDS: Carvedilol 3.125 MG TABLET PO ×2 (04:01→17:33)
[2017-07-18] MEDS: Nystatin Powder 15gm Bottle 1 APPLIC TOPICAL ×2 (04:02→20:21)
[2017-07-18] MEDS: Lisinopril 20 MG Tablet PO (04:02)
[2017-07-18 07:11] LABS: Bedside Glucose 81 mg/dL (70-110)
[2017-07-18] MEDS: Aspirin 81 MG TAB.CHEW PO (08:21)
[2017-07-18] MEDS: Allopurinol 100 MG Tablet PO (08:21)
[2017-07-18 15:48] VITALS: BP 149/70; PULSE 70; RESP 16; TEMP 36.7; O2SAT 98
[2017-07-18] MEDS: Rizatriptan Benzoate 10 MG Tablet PO (15:48)
[2017-07-18] MEDS: Atorvastatin Calcium 20 MG Tablet PO (20:21)
[2017-07-19] MEDS: Carvedilol 3.125 MG TABLET PO ×2 (04:42→17:20)
[2017-07-19] MEDS: Lisinopril 20 MG Tablet PO (04:43)
[2017-07-19] MEDS: Nystatin Powder 15gm Bottle 1 APPLIC TOPICAL ×2 (04:43→20:18)
[2017-07-19 05:42] VITALS: PULSE 74; O2SAT 98
[2017-07-19 06:31] LABS: Bedside Glucose 86 mg/dL (70-110)
[2017-07-19] MEDS: Aspirin 81 MG TAB.CHEW PO (08:13)
[2017-07-19] MEDS: Allopurinol 100 MG Tablet PO (08:13)
[2017-07-19] MEDS: Rizatriptan Benzoate 10 MG Tablet PO (14:38)
[2017-07-19 16:00] VITALS: BP 112/50; PULSE 86; RESP 16; TEMP 36.8; O2SAT 97
[2017-07-19] MEDS: Atorvastatin Calcium 20 MG Tablet PO (20:18)
[2017-07-20] MEDS: Nystatin Powder 15gm Bottle 1 APPLIC TOPICAL ×2 (05:38→19:50)
[2017-07-20] MEDS: Lisinopril 20 MG Tablet PO (05:38)
[2017-07-20] MEDS: Carvedilol 3.125 MG TABLET PO ×2 (05:38→17:29)
[2017-07-20 06:15] LABS: Absolute Neutrophil Count 5.5 X10^3/uL (2.0-7.7); Basophil# 0.02 X10^3/uL; Basophil% 0.3 % (0-1); Eosinophil# 0.28 X10^3/uL; Eosinophils% 3.6 % (0-5); Hematocrit 35.4 % (37-47); Lymphocyte % 18.1 % (19-41); Mean Corp Hgb Conc 31.1 g/gl (32-36); Mean Corpuscular Hgb 26.8 pg (27.0-32.0); Mean Corpuscular Volume 86.1 fL (81-99); Mean Platelet Vol. 11.6 fl (6.2-12.0); Monocyte# 0.51 X10^3/uL; Monocyte% 6.6 % (0-10); Neutrophil # 5.52 X10^3/uL (2.7-7.7); Neutrophil % 71.1 % (47-70); Platelet Count 142 K/mm3 (150-450); RBC Distribution Width CV 18.8 % (11.6-14.6); RBC Distribution Width SD 57.7 fl (35.1-43.9); Red Blood Count 4.11 M/mm3 (4.2-5.4); White Blood Count 7.8 K/mm3 (4.4-11.0)
[2017-07-20 06:23] LABS: International Normalized Ratio 1.8
[2017-07-20 06:24] LABS: POSITIVE COUNT NO; POSITIVE DIFFERENTIAL NO; POSITIVE MORPHOLOGY NO
[2017-07-20 06:33] LABS: Anion Gap 8 (5-15); BUN 39 mg/dL (7-18); BUN/Creat Ratio 28.7 RATIO (10-20); Calcium,Total 9.1 mg/dL (8.5-10.1); Chloride 113 mmol/L (98-107); Creatinine, Serum 1.36 mg/dL (0.55-1.02); EST Glomerular Filtration Rate 40 mL/min (>60); Est Glom Filt Rate - Afr Amer 48 mL/min (>60); Estimated Creatinine Clearance 29.44 ml/min; Glucose 78 mg/dL (70-110); Potassium 5.1 mmol/L (3.5-5.1); Sodium Level 142 mmol/L (136-145)
[2017-07-20 06:51] LABS: Bedside Glucose 89 mg/dL (70-110)
[2017-07-20] MEDS: Aspirin 81 MG TAB.CHEW PO (07:59)
[2017-07-20] MEDS: Allopurinol 100 MG Tablet PO (07:59)
[2017-07-20 10:15] VITALS: BP 157/54; PULSE 86; RESP 18; TEMP 36.2; O2SAT 99
--- NOTE | 2017-07-20 10:15 | NURSING ---
pt ambulating with therapy back to room and became lightheaded felt like she was gonna pass out. Vitals obtained WNL, blood sugar 160. therapy assisted pt to WC then to room to rest. Will continue to monitor.
[2017-07-20 10:21] LABS: Bedside Glucose 160 mg/dL (70-110)
[2017-07-20] MEDS: Acetaminophen 500 MG Tablet 1000 MG PO (14:18)
--- NOTE | 2017-07-20 14:34 | CHAPLAIN ---
Type of Pastoral Visit ___ Initial Visit _x__ Follow-up Visit ___ On-call Visit ___ General Patient Visit ___ Spiritual Assessment ___ Family Conference ___ Bereavement ___ Rapid Response ___ Code Blue ___ Other (describe below) Pastoral Care Referral From _x__ Patient ___ Family ___ Nurse ___ Physician ___ Locomotive Oiler ___ Service Vehicle Operator ___ Other (describe below) Sacrament/Intervention _x__ Active listening ___ Anointing ___ Methodist _x__ Bereavement ___ Communion ___ Corrina exploration ___ ___ Life review _x__ Prayer ___ Reconciliation ___ Sacrament of Sick _x__ Supportive presence ___ Wedding ___ Other (describe below) Pastoral Comments patient asked for resources on grief counseling/groups in area; gave her information on [facility] services for grief; pt asked questions about memorial services and speaks of a goal to get her family together to talk about her son; pt welcomes prayer support
[2017-07-20 16:00] VITALS: BP 138/65; PULSE 77; RESP 18; TEMP 36.4; O2SAT 93
[2017-07-20] MEDS: Atorvastatin Calcium 20 MG Tablet PO (19:51)
[2017-07-21] MEDS: Nystatin Powder 15gm Bottle 1 APPLIC TOPICAL ×2 (05:07→20:54)
[2017-07-21] MEDS: Carvedilol 3.125 MG TABLET PO ×2 (05:08→17:11)
[2017-07-21] MEDS: Lisinopril 20 MG Tablet PO (05:08)
[2017-07-21 07:21] LABS: Bedside Glucose 102 mg/dL (70-110)
[2017-07-21 07:21] LABS: Bedside Glucose 68 mg/dL (70-110)
[2017-07-21] MEDS: Aspirin 81 MG TAB.CHEW PO (07:35)
[2017-07-21] MEDS: Allopurinol 100 MG Tablet PO (07:35)
[2017-07-21] MEDS: Acetaminophen 500 MG Tablet 1000 MG PO (15:42)
[2017-07-21 16:00] VITALS: BP 120/56; PULSE 76; RESP 18; TEMP 37; O2SAT 99
[2017-07-21] MEDS: Atorvastatin Calcium 20 MG Tablet PO (20:51)
[2017-07-22] MEDS: Lisinopril 20 MG Tablet PO (05:18)
[2017-07-22] MEDS: Carvedilol 3.125 MG TABLET PO ×2 (05:18→16:46)
[2017-07-22] MEDS: Nystatin Powder 15gm Bottle 1 APPLIC TOPICAL ×2 (05:20→20:10)
[2017-07-22 07:10] LABS: Bedside Glucose 78 mg/dL (70-110)
[2017-07-22] MEDS: Allopurinol 100 MG Tablet PO (07:55)
[2017-07-22] MEDS: Aspirin 81 MG TAB.CHEW PO (07:55)
--- NOTE | 2017-07-22 10:22 | NURSING ---
PT C/O BURNING AND URGENCY WITH VOIDING, DR. WHITE UPDATED, N.O. FOR UA AND C&S, PT AWARE.
[2017-07-22 11:59] LABS: Bacteria 0 SEEN /hpf (None Seen); Mucous, Urine 0 SEEN /hpf (<or=2+); Red Blood Cells-Urine 0 SEEN /hpf (0-5); Squamous Epithelial Cells - UA 0 SEEN /hpf (5-10); White Blood Cells 0 SEEN /hpf (0-5)
[2017-07-22 12:21] LABS: Color, Urine Yellow (Yellow); Glucose, Dipstick Normal (Normal); Ketone-Dipstick Negative (Negative); Leukocyte Esterase-Dipstick Negative /ul (Negative); Nitrite-Dipstick Negative (Negative); Occult Blood-Urine Negative /ul (Negative); Protein-Dipstick Negative (Negative); Urine Bilirubin Dipstick Negative (Negative); Urine Clarity Sl. Cloudy (Clear); Urine Urobilinogen Normal (Normal)
[2017-07-22 16:00] VITALS: BP 153/79; PULSE 86; RESP 18; TEMP 36.4; O2SAT 100
[2017-07-22] MEDS: Rizatriptan Benzoate 10 MG Tablet PO (18:23)
[2017-07-22] MEDS: Atorvastatin Calcium 20 MG Tablet PO (20:09)
--- NOTE | 2017-07-22 20:17 | NURSING ---
Pt complaint of indigestion. Dr. Kaur updated. N.O entered.
[2017-07-22] MEDS: Mag Hydrox/Al Hydrox/Simeth 30 ML UDC PO (20:20)
[2017-07-23] MEDS: Mag Hydrox/Al Hydrox/Simeth 30 ML UDC PO ×2 (02:47→10:55)
[2017-07-23 05:59] LABS: International Normalized Ratio 1.7; Prothrombin Time (Protime)PT. 19.7 SECONDS (11.7-14.9)
[2017-07-23] MEDS: Lisinopril 20 MG Tablet PO (06:06)
[2017-07-23] MEDS: Carvedilol 3.125 MG TABLET PO ×2 (06:06→17:31)
[2017-07-23] MEDS: Nystatin Powder 15gm Bottle 1 APPLIC TOPICAL ×2 (06:07→20:52)
[2017-07-23 07:01] LABS: Bedside Glucose 91 mg/dL (70-110)
[2017-07-23] MEDS: Aspirin 81 MG TAB.CHEW PO (08:02)
[2017-07-23] MEDS: Allopurinol 100 MG Tablet PO (08:02)
--- NOTE | 2017-07-23 14:35 | NURSING ---
Per therapy, patient now up ad sharee in room. PA removed. Coumadin increased to 3mg daily.
[2017-07-23 15:30] VITALS: BP 150/66; PULSE 63; RESP 16; TEMP 36.6; O2SAT 98
--- NOTE | 2017-07-23 16:21 | CASEMGMT ---
Social Work Spoke with resident in room. This perinatal social worker communicating to resident that discharge date has been set for 07/29/17. Resident is agreeable to discharge date and plans to discharge home with spouse. Resident requesting for this perinatal social worker to contact resident daughter, Aixa. Telephone call to Aixa Kruse agreeable to discharge date and plan. Support given. Proposed discharge date: 07/29/17 PLAN: Discharge home with spouse. Physical therapy is also recommending for resident to have outpatient Physical therapy. - Will follow up with resident to set up outpatient PT. Chanell SCHWARZ, PLASTIC JIG AND FIXTURE BUILDER
[2017-07-23] MEDS: Atorvastatin Calcium 20 MG Tablet PO (20:51)
[2017-07-24] MEDS: Lisinopril 20 MG Tablet PO (05:31)
[2017-07-24] MEDS: Carvedilol 3.125 MG TABLET PO ×2 (05:31→16:52)
[2017-07-24] MEDS: Nystatin Powder 15gm Bottle 1 APPLIC TOPICAL ×2 (05:32→20:22)
[2017-07-24 07:01] LABS: Bedside Glucose 78 mg/dL (70-110)
[2017-07-24] MEDS: Allopurinol 100 MG Tablet PO (07:55)
[2017-07-24] MEDS: Aspirin 81 MG TAB.CHEW PO (07:55)
[2017-07-24] MEDS: Acetaminophen 500 MG Tablet 1000 MG PO (13:44)
[2017-07-24 15:55] VITALS: BP 142/64; PULSE 87; RESP 20; TEMP 36.4; O2SAT 97
[2017-07-24] MEDS: Atorvastatin Calcium 20 MG Tablet PO (20:22)
[2017-07-25] MEDS: Carvedilol 3.125 MG TABLET PO ×2 (04:52→17:41)
[2017-07-25] MEDS: Lisinopril 20 MG Tablet PO (04:53)
[2017-07-25] MEDS: Nystatin Powder 15gm Bottle 1 APPLIC TOPICAL ×2 (04:53→20:01)
[2017-07-25 04:56] VITALS: O2SAT 99
[2017-07-25 05:46] LABS: Bedside Glucose 80 mg/dL (70-110)
[2017-07-25] MEDS: Allopurinol 100 MG Tablet PO (08:01)
[2017-07-25] MEDS: Aspirin 81 MG TAB.CHEW PO (08:01)
[2017-07-25] MEDS: Acetaminophen 500 MG Tablet 1000 MG PO (14:09)
[2017-07-25 16:00] VITALS: BP 143/68; PULSE 90; RESP 18; TEMP 36.5; O2SAT 97
[2017-07-25] MEDS: Atorvastatin Calcium 20 MG Tablet PO (20:01)
[2017-07-26] MEDS: Nystatin Powder 15gm Bottle 1 APPLIC TOPICAL ×2 (05:50→20:00)
[2017-07-26] MEDS: Carvedilol 3.125 MG TABLET PO ×2 (05:50→16:45)
[2017-07-26] MEDS: Lisinopril 20 MG Tablet PO (05:50)
[2017-07-26 06:56] LABS: Bedside Glucose 76 mg/dL (70-110)
[2017-07-26] MEDS: Aspirin 81 MG TAB.CHEW PO (07:31)
[2017-07-26] MEDS: Allopurinol 100 MG Tablet PO (07:31)
[2017-07-26] MEDS: Acetaminophen 500 MG Tablet 1000 MG PO (15:14)
[2017-07-26 16:00] VITALS: BP 134/65; PULSE 83; RESP 20; TEMP 36.6; O2SAT 99
[2017-07-26] MEDS: Rizatriptan Benzoate 10 MG Tablet PO (19:59)
[2017-07-26] MEDS: Atorvastatin Calcium 20 MG Tablet PO (19:59)
[2017-07-27] MEDS: Carvedilol 3.125 MG TABLET PO ×2 (05:27→17:19)
[2017-07-27] MEDS: Lisinopril 20 MG Tablet PO (05:27)
[2017-07-27] MEDS: Nystatin Powder 15gm Bottle 1 APPLIC TOPICAL ×2 (05:28→21:41)
[2017-07-27 06:09] LABS: Prothrombin Time (Protime)PT. 22.2 SECONDS (11.7-14.9)
[2017-07-27 06:45] LABS: Bedside Glucose 91 mg/dL (70-110)
[2017-07-27] MEDS: Allopurinol 100 MG Tablet PO (08:14)
[2017-07-27] MEDS: Aspirin 81 MG TAB.CHEW PO (08:14)
[2017-07-27 16:00] VITALS: BP 133/59; PULSE 82; RESP 18; TEMP 36.7; O2SAT 98
--- NOTE | 2017-07-27 16:31 | CASEMGMT ---
Brief interview for mental status (BIMS) and resident mood interview (PHQ-9) completed on this day. BIMS score 14/15. PHQ-9 score 07/25
--- NOTE | 2017-07-27 16:32 | CASEMGMT ---
Social Work Spoke with resident in room. This social media analyst communicating to resident that physical therapy is recommending for resident to continue with services through Outpatient physical therapy. Resident is declining to have outpatient PT set up and is reporting to have a home exercise program that resident follows. This social media analyst discussing with resident the importance of follow recommendations, resident voicing understanding but declining any further therapy services at this time. Resident reporting to have all needed durable medical equipment already set up within the home. Resident family plans to provide transportation home for resident. Support given. Proposed discharge date: 07/29/17 PLAN: Discharge home with spouse. Chanell SCHWARZ, SAIL REPAIRER
[2017-07-27] MEDS: Mag Hydrox/Al Hydrox/Simeth 30 ML UDC PO (18:36)
[2017-07-27] MEDS: Atorvastatin Calcium 20 MG Tablet PO (21:40)
--- NOTE | 2017-07-27 22:19 | PCM.DC ---
- Discharge Diagnoses Current Active Problems: Current Active and Chronic Problems Shortness of breath (Acute) Acute on chronic diastolic heart failure (Acute) Coronary artery disease (Chronic) Diabetes mellitus (Chronic) DVT (deep venous thrombosis) (Chronic) Lymphedema (Chronic) Gout (Acute) You will use the following diet at home:: No restrictions, Regular Your food should be the consistency of: Regular Your liquids should be the consistency of: Regular/Thin Discharge Activity: Return to Normal Activity, Use Walker Weight Bearing Status: Weight bearing as tolerated Call your doctor if you observe: Fever of 101 or Higher, Inability to urinate, Inability to have a bowel movement, Shortness of breath, Chest pain, Uncontrolled pain Allergies/Adverse Reactions: Allergies duloxetine [From Cymbalta] Allergy (Verified 05/02/16 14:48) Other Penicillins Allergy (Verified 05/02/16 14:48) Hives terbutaline [From Brethine] Allergy (Verified 05/02/16 14:48) Shortness of breath tolmetin Adverse Reaction (Verified 05/02/16 14:48) Unknown Medications to take at Discharge Allopurinol [Zyloprim] 100 mg PO DAILYCM 05/02/16 Aspirin 81 mg PO DAILY 05/02/16 Nitroglycerin [Nitrostat] 0.4 mg SUBLINGUAL Q5M PRN 05/02/16 Rosuvastatin Calcium [Crestor] 10 mg PO DAILY 05/02/16 Quinapril HCl [Accupril] 20 mg PO DAILY 06/30/17 Acetaminophen [Tylenol] 1,000 mg PO Q8H PRN PRN tablet 07/27/17 Carvedilol [Coreg (Beta Luci)] 3.125 mg PO BID #60 tab 07/27/17 Mineral Oil/Petrolatum,White [Eucerin] 1 applic TOPICAL 0600,2200 jar 07/27/17 Nystatin Powder [Mycostatin Powder] 1 applic TOPICAL 0600,2200 #1 bottle 07/27/17 Polyethylene Glycol 3350 [Miralax] 17 gm PO DAILY #30 packet 07/27/17 Rizatriptan Benzoate [Maxalt] 10 mg PO DAILY PRN #30 tab 07/27/17 Warfarin [Coumadin] 3 mg PO DAILY@1700 #30 tab 07/27/17 The following prescriptions were given: Nystatin Powder [Mycostatin Powder] 1 applic TOPICAL 0600,2200 #1 bottle Polyethylene Glycol 3350 [Miralax] 17 gm PO DAILY #30 packet Rizatriptan Benzoate [Maxalt] 10 mg PO DAILY PRN #30 tab PRN Reason: MIGRAINE SYMPTOMS Warfarin [Coumadin] 3 mg PO DAILY@1700 #30 tab Carvedilol [Coreg (Beta Luci)] 3.125 mg PO BID #60 tab Orders to be completed after discharge: Prothrombin Time w/INR Time Frame: 2 Days, Location: Laboratory Primary Care Physician: Huey Wong [Primary Care Provider] - Please follow up with your Primary Care Physician in: 1 week. Proposed Discharge Date: 07/29/17
--- NOTE | 2017-07-27 22:21 | PCM.DC.SUM ---
Discharge Date and Diagnosis - Problem List Patient Problems: Active and Suspected Problems Shortness of breath (Acute) Acute on chronic diastolic heart failure (Acute) Gout (Acute) Date of Admission: 07/04/17 Date of Discharge: 07/29/17 - Primary Discharge Diagnosis Active and Suspected Problems Shortness of breath (Acute) Acute on chronic diastolic heart failure (Acute) Gout (Acute) - Secondary Discharge Diagnosis Chronic Problems Peripheral edema (Chronic) Venous (peripheral) insufficiency (Chronic) Peripheral vascular disease (Chronic) CHF (congestive heart failure) (Chronic) Diabetes type 2, controlled (Chronic) Hypertension (Chronic) Hyperlipidemia (Chronic) Atherosclerotic heart disease of [place] coronary artery without angina pectoris (Chronic) Presence of cardiac pacemaker (Chronic) Presence of prosthetic heart valve (Chronic) S/P AAA (abdominal aortic aneurysm) repair (Chronic) Ulcer, venous stasis, left (Chronic) left medial ankle Lymphedema of both lower extremities (Chronic) Venous hypertension, chronic, with inflammation (Chronic) History of DVT (deep vein thrombosis) (Chronic) Postphlebetic syndrome with inflammation (Chronic) Leg swelling (Chronic) Osteoarthritis (Chronic) Venous stasis dermatitis (Chronic) A-fib (Chronic) Coronary artery disease (Chronic) Diabetes mellitus (Chronic) DVT (deep venous thrombosis) (Chronic) Lymphedema (Chronic) Hospital Course and Treatment Imaging Results: 07/04/17 Dinner Diet: Calorie Controlled Food consistency:: Regular Liquid Consistency:: Regular/Thin Is pt able to select menu?: Yes Diet Comments: low sodium How many daily calories?: 1800 calorie Clinical Impression(s) from Imaging Studies Chest X-Ray 07/06/17 08:51 IMPRESSION: Stable examination. No acute abnormality is seen. Electronically Signed: George Mitchell MD at 12:29 EST Tel [phone], Service support , Labs (Last 48 Hours) 07/26/17 07/27/17 07/27/17 06:49 05:10 06:32 PT 22.2 H INR 2.0 POC Glucose 76 91 Operations: None Procedures: None Summary of Care Provided: The patient is a 77 year old Female with below past medical history hospitalized for acute on chronic diastolic heart failure, complicated by auditory and visual hallucinations secondary to encephalopathy, severe stress, admitted to TCU for rehabilitation, strengthening. Will discharge home with spouse. No further therapy at this time due to resident declining outpatient physical therapy. Discharge Diet: No Restrictions Discharge Activity: Return to Normal Activity, Use Walker Weight Bearing Status: Weight bearing as tolerated Call your doctor if you observe: Fever of 101 or Higher, Inability to urinate, Inability to have a bowel movement, Shortness of breath, Chest pain, Uncontrolled pain Home Medications: Medications to take at Discharge Allopurinol [Zyloprim] 100 mg PO DAILYCM 05/02/16 Aspirin 81 mg PO DAILY 05/02/16 Nitroglycerin [Nitrostat] 0.4 mg SUBLINGUAL Q5M PRN 05/02/16 Rosuvastatin Calcium [Crestor] 10 mg PO DAILY 05/02/16 Quinapril HCl [Accupril] 20 mg PO DAILY 06/30/17 Acetaminophen [Tylenol] 1,000 mg PO Q8H PRN PRN tablet 07/27/17 Carvedilol [Coreg (Beta Luci)] 3.125 mg PO BID #60 tab 07/27/17 Mineral Oil/Petrolatum,White [Eucerin] 1 applic TOPICAL 0600,2200 jar 07/27/17 Nystatin Powder [Mycostatin Powder] 1 applic TOPICAL 0600,2200 #1 bottle 07/27/17 Polyethylene Glycol 3350 [Miralax] 17 gm PO DAILY #30 packet 07/27/17 Rizatriptan Benzoate [Maxalt] 10 mg PO DAILY PRN #30 tab 07/27/17 Warfarin [Coumadin] 3 mg PO DAILY@1700 #30 tab 07/27/17 Following Prescrptions Were Given to Patient: Nystatin Powder [Mycostatin Powder] 1 applic TOPICAL 0600,2200 #1 bottle Polyethylene Glycol 3350 [Miralax] 17 gm PO DAILY #30 packet Rizatriptan Benzoate [Maxalt] 10 mg PO DAILY PRN #30 tab PRN Reason: MIGRAINE SYMPTOMS Warfarin [Coumadin] 3 mg PO DAILY@1700 #30 tab Carvedilol [Coreg (Beta Luci)] 3.125 mg PO BID #60 tab Other Amb Orders: Prothrombin Time w/INR Time Frame: 2 Days, Location: Laboratory Primary Care Physician: Huey Wong [Primary Care Provider] - Please follow up with your Primary Care Physician in: 1 week. Disposition: Home Minutes spent on discharge:: 30 Patient Condition:: Stable Meaningful Use Info Meaningful Use Diagnoses (Choose all that apply): CHF - CHF OCTAVIANO/ARB ordered at discharge?: Yes Documented LVEF (%): 50
--- NOTE | 2017-07-27 22:24 | DS.PCM_ITS ---
Discharge Date and Diagnosis - Problem List Patient Problems: Active and Suspected Problems Shortness of breath (Acute) Acute on chronic diastolic heart failure (Acute) Gout (Acute) Date of Admission: 07/04/17 Date of Discharge: 07/29/17 - Primary Discharge Diagnosis Active and Suspected Problems Shortness of breath (Acute) Acute on chronic diastolic heart failure (Acute) Gout (Acute) - Secondary Discharge Diagnosis Chronic Problems Peripheral edema (Chronic) Venous (peripheral) insufficiency (Chronic) Peripheral vascular disease (Chronic) CHF (congestive heart failure) (Chronic) Diabetes type 2, controlled (Chronic) Hypertension (Chronic) Hyperlipidemia (Chronic) Atherosclerotic heart disease of [place] coronary artery without angina pectoris (Chronic) Presence of cardiac pacemaker (Chronic) Presence of prosthetic heart valve (Chronic) S/P AAA (abdominal aortic aneurysm) repair (Chronic) Ulcer, venous stasis, left (Chronic) left medial ankle Lymphedema of both lower extremities (Chronic) Venous hypertension, chronic, with inflammation (Chronic) History of DVT (deep vein thrombosis) (Chronic) Postphlebetic syndrome with inflammation (Chronic) Leg swelling (Chronic) Osteoarthritis (Chronic) Venous stasis dermatitis (Chronic) A-fib (Chronic) Coronary artery disease (Chronic) Diabetes mellitus (Chronic) DVT (deep venous thrombosis) (Chronic) Lymphedema (Chronic) Hospital Course and Treatment Imaging Results: 07/04/17 Dinner Diet: Calorie Controlled Food consistency:: Regular Liquid Consistency:: Regular/Thin Is pt able to select menu?: Yes Diet Comments: low sodium How many daily calories?: 1800 calorie Clinical Impression(s) from Imaging Studies Chest X-Ray 07/06/17 08:51 IMPRESSION: Stable examination. No acute abnormality is seen. Electronically Signed: George Mitchell MD at 12:29 EST Tel [phone], Service support , Labs (Last 48 Hours) 07/26/17 07/27/17 07/27/17 06:49 05:10 06:32 PT 22.2 H INR 2.0 POC Glucose 76 91 Operations: None Procedures: None Summary of Care Provided: The patient is a 77 year old Female with below past medical history hospitalized for acute on chronic diastolic heart failure, complicated by auditory and visual hallucinations secondary to encephalopathy, severe stress, admitted to TCU for rehabilitation, strengthening. Will discharge home with spouse. No further therapy at this time due to resident declining outpatient physical therapy. Discharge Diet: No Restrictions Discharge Activity: Return to Normal Activity, Use Walker Weight Bearing Status: Weight bearing as tolerated Call your doctor if you observe: Fever of 101 or Higher, Inability to urinate, Inability to have a bowel movement, Shortness of breath, Chest pain, Uncontrolled pain Home Medications: Medications to take at Discharge Allopurinol [Zyloprim] 100 mg PO DAILYCM 05/02/16 Aspirin 81 mg PO DAILY 05/02/16 Nitroglycerin [Nitrostat] 0.4 mg SUBLINGUAL Q5M PRN 05/02/16 Rosuvastatin Calcium [Crestor] 10 mg PO DAILY 05/02/16 Quinapril HCl [Accupril] 20 mg PO DAILY 06/30/17 Acetaminophen [Tylenol] 1,000 mg PO Q8H PRN PRN tablet 07/27/17 Carvedilol [Coreg (Beta Luci)] 3.125 mg PO BID #60 tab 07/27/17 Mineral Oil/Petrolatum,White [Eucerin] 1 applic TOPICAL 0600,2200 jar 07/27/17 Nystatin Powder [Mycostatin Powder] 1 applic TOPICAL 0600,2200 #1 bottle Polyethylene Glycol 3350 [Miralax] 17 gm PO DAILY #30 packet 07/27/17 Rizatriptan Benzoate [Maxalt] 10 mg PO DAILY PRN #30 tab 07/27/17 Warfarin [Coumadin] 3 mg PO DAILY@1700 #30 tab 07/27/17 Following Prescrptions Were Given to Patient: Nystatin Powder [Mycostatin Powder] 1 applic TOPICAL 0600,2200 #1 bottle Polyethylene Glycol 3350 [Miralax] 17 gm PO DAILY #30 packet Rizatriptan Benzoate [Maxalt] 10 mg PO DAILY PRN #30 tab PRN Reason: MIGRAINE SYMPTOMS Warfarin [Coumadin] 3 mg PO DAILY@1700 #30 tab Carvedilol [Coreg (Beta Luci)] 3.125 mg PO BID #60 tab Other Amb Orders: Prothrombin Time w/INR Time Frame: 2 Days, Location: Laboratory Primary Care Physician: Huey Wong [Primary Care Provider] - Please follow up with your Primary Care Physician in: 1 week. Disposition: Home Minutes spent on discharge:: 30 Patient Condition:: Stable Meaningful Use Info Meaningful Use Diagnoses (Choose all that apply): CHF - CHF OCTAVIANO/ARB ordered at discharge?: Yes Documented LVEF (%): 50
[2017-07-28] MEDS: Carvedilol 3.125 MG TABLET PO ×2 (05:33→17:31)
[2017-07-28] MEDS: Lisinopril 20 MG Tablet PO (05:34)
[2017-07-28] MEDS: Nystatin Powder 15gm Bottle 1 APPLIC TOPICAL ×2 (05:34→20:18)
[2017-07-28 07:21] LABS: Bedside Glucose 83 mg/dL (70-110)
[2017-07-28] MEDS: Aspirin 81 MG TAB.CHEW PO (08:41)
[2017-07-28] MEDS: Allopurinol 100 MG Tablet PO (08:41)
--- NOTE | 2017-07-28 14:16 | MDS.RN ---
Information for the mds was obtained from review of the clinical record, interview of resident, staff, and direct observation of resident's care.
[2017-07-28 16:00] VITALS: BP 118/54; PULSE 87; RESP 18; TEMP 36.3; O2SAT 93
[2017-07-28] MEDS: Atorvastatin Calcium 20 MG Tablet PO (20:17)
[2017-07-29] MEDS: Lisinopril 20 MG Tablet PO (05:37)
[2017-07-29] MEDS: Nystatin Powder 15gm Bottle 1 APPLIC TOPICAL (05:37)
[2017-07-29] MEDS: Carvedilol 3.125 MG TABLET PO (05:37)
[2017-07-29 07:06] LABS: Bedside Glucose 78 mg/dL (70-110)
[2017-07-29] MEDS: Aspirin 81 MG TAB.CHEW PO (07:56)
[2017-07-29] MEDS: Allopurinol 100 MG Tablet PO (07:56)
== END 2017-07-29 14:14 | disposition home or self-care (01) | DRG 291 ==
PROVIDERS: Admitting Provider Family Medicine Geriatric Medicine; Family Provider Family Medicine; PCP Family Medicine; Visit Provider Family Medicine Geriatric Medicine
DX: I11.0 Hypertensive heart disease with heart failure (principal); G93.40 Encephalopathy, unspecified; I48.2 Chronic atrial fibrillation; E11.9 Type 2 diabetes mellitus without complications; E78.5 Hyperlipidemia, unspecified; B35.4 Tinea corporis; I25.10 Atherosclerotic heart disease of native coronary artery without angina pectoris; G43.909 Migraine, unspecified, not intractable, without status migrainosus; J40 Bronchitis, not specified as acute or chronic; I73.9 Peripheral vascular disease, unspecified; I50.33 Acute on chronic diastolic (congestive) heart failure; I89.0 Lymphedema, not elsewhere classified; M19.90 Unspecified osteoarthritis, unspecified site; M10.9 Gout, unspecified; Z86.718 Personal history of other venous thrombosis and embolism; Z95.0 Presence of cardiac pacemaker; Z95.2 Presence of prosthetic heart valve; Z79.4 Long term (current) use of insulin; Z79.899 Other long term (current) drug therapy; Z79.01 Long term (current) use of anticoagulants; Z87.891 Personal history of nicotine dependence; Z63.4 Disappearance and death of family member
CPT/HCPCS: 36415; 71046; 80048; 81001; 82962; 85025; 85610; 87086; 92507; 92523; 94640; 97110; 97116; 97162; 97166; 97530; 97535; 97802; J7030; A4216

== ENCOUNTER → 2020-02-22 13:43 | Outpatient (CLI) | payer MEDICARE, OTHER, SELFPAY ==
--- NOTE | 2020-02-22 13:49 | ART_ITS ---
Reason For Study: PVD Procedure A bilateral lower extremity continuous wave Doppler with analog waveform analysis,segmental pressures,and ankle brachial indexes without exercise. Technically difficult study due to EDEMA. Left Segmental Pressures Left brachial= 185mmHg. Left calf = 145mmHg. Left dorsalis pedis artery = 145mmHg. Left digit = 56 mmHg. The left dorsalis pedis waveforms are monophasic. The left posterior tibial artery waveforms are monophasic. Left posterior tibial artery waveforms were too unreliable for pressure readings. Right Segmental Pressures Right brachial= 171mmHg. Right calf = 112mmHg. Right dorsalis pedis artery = 104mmHg. Right digit = 59 mmHg. The right dorsalis pedis waveforms are monophasic. Right posterior tibial artery waveforms were unobtainable due to edema. Indices The right resting ankle brachial index is 0.56. The right ankle brachial index by the dorsalis pedis is 0.56. The right digital-brachial index is 0.32. The left resting ankle brachial index is 0.78. The left ankle brachial index by the dorsalis pedis is 0.78. The left digital-brachial index is 0.30. Interpretation Summary Moderately severe bilateral lower extremity arterial occlusive disease based upon ankle-brachial indices. Absent Doppler flow right posterior tibial and monophasic flow in the right dorsalis pedis and left posterior tibialis and dorsalis pedis consistent with a more severe level of disease More extensive disease right lower extremity as compared to the left Abnormal bilateral digital brachial indices Ordering Physician: Cheikh Cruz Referring Physician: Huey Wong Performed By: Yuki Wang RVT, RDCS
== END ==
PROVIDERS: PCP Family Medicine; Referring Provider Podiatrist; Visit Provider Podiatrist
DX: I73.9 Peripheral vascular disease, unspecified (principal); L97.929 Non-pressure chronic ulcer of unspecified part of left lower leg with unspecified severity
CPT/HCPCS: 93923

== ENCOUNTER 2020-08-08 11:15 | Outpatient (RCR) | payer MEDICARE, OTHER, SELFPAY ==
[2020-08-01 10:38] VITALS: BP 175/74; PULSE 94; RESP 18; TEMP 36.6
--- NOTE | 2020-08-01 11:52 | PN.PCM_ITS ---
(1) Type 2 diabetes mellitus with diabetic polyneuropathy Status: Chronic Code(s): E11.42 - Type 2 diabetes mellitus with diabetic polyneuropathy (2) Other specified peripheral vascular diseases Status: Chronic Code(s): I73.89 - Other specified peripheral vascular diseases (3) Ulcer of left lower extremity with fat layer exposed Status: Chronic Code(s): L97.922 - Non-pressure chronic ulcer of unspecified part of left lower leg with fat layer exposed (4) Localized edema Status: Chronic Code(s): R60.0 - Localized edema Type of Wound Date of Service: 08/01/20 Chief Complaint: Swelling and edema of the lower extremities bilaterally, associated with bilateral venous stasis dermatitis History of Wound: This is a 6-year-old female (birthday today) with long- standing history of swelling, edema, and chronic venous insufficiency in her lower extremities bilaterally. She has previously been treated for similar symptoms in the past at this facility. She presented with a scaly venous dermatitis bilaterally. There were no open wounds or ulcerations. There was no luciana cellulitis or infection. Patient has a history of left lower extremity deep vein thrombosis approximately 20 years ago. She underwent coronary rev ascularization and mechanical aortic valve replacement in 1982, and has been on systemic anticoagulation since that time. Her lower extremity swelling and edema has been chronic. She claims to sleep on a flat mattress at night. She suffers from osteoarthritis, which limits her mobility. As result, she sits a great deal during each day. She experiences pain in her lower extremities, which is usually related to dependency and swelling. A venous duplex examination performed in April 2016 reveals incompetence of the right great saphenous vein, a branch of the right small saphenous vein, and 2 incompetent right calf roller coaster designer veins. On the left, the great saphenous vein is incompetent as well as an incompetent left calf roller coaster designer vein. She suffers from severe lower extremity arterial occlusive disease, based upon the results of a noninvasive lower extremity arterial study which was performed in April 2016. The right resting ankle-brachial index was 0.57, and the left resting ankle-brachial index was 0.49. The right digital-brachial index 0.25. The left digital-brachial index 0.26. The patient has mechanical compression pumps which she has used in the past during her treatment here previously, but she has not used them for many months, but we have recently encouraged her to reimplement their use. Compression has been administered recently by means of Unna boots b ilaterally. As a result, there was a decrease in the swelling, erythema, and dermatitis. She has now obtained CircAid compression garments, which she is wearing daily. She appears to be compliant, and is pleased with her recently acquired CircAid compression garments. In addition, she is sleeping in a flat position, avoiding idle standing and sitting, remaining active, etc. She is also been using her mechanical compression pumps. - Physical Exam Vital Signs Temp Pulse Resp BP 98 F 94 18 175/74 H 08/01/20 10:38 08/01/20 10:38 08/01/20 10:38 08/01/20 10:38 Wound Measurements and Assessment WC - Nurse 1 - General Ulcer Measurement Start: 08/01/20 09:56 Freq: Status: Active Protocol: Activity Type Activity Date Activity User E-Sign Co-Sign Detail Recorded Client Recorded Date Recorded By Document 08/01/20 10:28 RB [id number] 08/01/20 10:36 RB 08/01/20 10:28 Wound Center Nurse 1 [Ulcer Assessment] 2. LLE medial -Combined with other wound No -Current Size (cm) - Length 1.4 -Current Size (cm) - Width 1.5 -Current Size (cm) - Depth 0.1 -Total Square Cm 2.10 -Tunneling No -Undermining/Tunneling No -Circular Undermining No -Exudate Amt None Present -Wound Margin Flat & Intact -Granulation Amt None Present (0 %) -Slough/Fibrin Yes -Necrosis Amt Large (67-100%) -Necrotic Tissue Type Adherent Slough -Structure Exposed N/A -Texture (Lidia-wound Skin Appearance) Assessed, Localized Edema -Moisture (Lidia-wound Skin Appearance Assessed ) -Color (Lidia-wound Skin Appearance) Assessed -Temperature (Lidia-wound Skin No Abnormality Appearance) (Pt Warm) -Tenderness on Palpation (Lidia-wound No Skin Appearance) -Ulcer Cleansing Wound Cleanser -Foul Odor after Cleansing No -Anesthetic Used 5% Lidocaine Gel [Edema Assessment] -Lower Limb Edema Present Yes -Right Calf (cm) 38 -Right Ankle (cm) 23.5 -Left Calf (cm) 39.5 -Left Ankle (cm) 26 WC - Nurse 2 - General Ulcer CM Notes Start: 08/01/20 09:56 Freq: Status: Active Protocol: Activity Type Activity Date Activity User E-Sign Co-Sign Detail Recorded Client Recorded Date Recorded By Document 08/01/20 10:57 JF [id number] 08/01/20 11:00 HEMANT 08/01/20 10:57 Wound Center Nurse 2 [Procedure/Treatment] 2. LLE medial -Time 10:59 -Correct Patient Yes -Correct Side, Site, Position Yes -Correct Procedure Yes -Procedure Performed Yes -Type of Procedure Debridement -Clinical Debridement Subcutaneous -Tissue Removed Subcutaneous -Post Debridement (cm) - Length 1.5 -Post Debridement (cm) - Width 1.4 -Post Debridement (cm) - Depth 0.2 -Total Square (Post) (cm) 2.10 -Area of Debridement (cm) - Length 1.5 -Area of Debridement (cm) - Width 1.4 -Total Square (Area) (cm) 2.10 -Tunneling No -Undermining/Tunneling No -Circular Undermining No -Wound/Ulcer Outcome Not Healed -Ulcer Cleansing Rinsed/ Irrigated with Saline -Foul Odor after Cleansing No -Bioengineered Tissue No -Offloading No -Treatment Response Procedure Tolerated Well -Debridement - Subq, 1st 20sq cm Yes [See Physician Procedure note for Specifics] Pain Scale: 0-10 Numeric [Pain] -Is Patient Pain Free? Yes Debridement Note Post-Debridement Measurements/Treatment WC - Nurse 2 - General Ulcer CM Notes Start: 08/01/20 09:56 Freq: Status: Active Protocol: Activity Type Activity Date Activity User E-Sign Co-Sign Detail Recorded Client Recorded Date Recorded By Document 08/01/20 10:57 JF [id number] 08/01/20 11:00 08/01/20 10:57 Wound Center Nurse 2 2. LLE medial -Time 10:59 -Correct Patient Yes -Correct Side, Site, Position Yes -Correct Procedure Yes -Procedure Performed Yes -Type of Procedure Debridement -Clinical Debridement Subcutaneous -Tissue Removed Subcutaneous -Post Debridement (cm) - Length 1.5 -Post Debridement (cm) - Width 1.4 -Post Debridement (cm) - Depth 0.2 -Total Square (Post) (cm) 2.10 -Area of Debridement (cm) - Length 1.5 -Area of Debridement (cm) - Width 1.4 -Total Square (Area) (cm) 2.10 -Tunneling No -Undermining/Tunneling No -Circular Undermining No -Wound/Ulcer Outcome Not Healed -Ulcer Cleansing Rinsed/ Irrigated with Saline -Foul Odor after Cleansing No -Bioengineered Tissue No -Offloading No -Treatment Response Procedure Tolerated Well -Debridement - Subq, 1st 20sq cm Yes Pain Scale: 0-10 Numeric Is Patient Pain Free? Yes Wound debrided: medial leg Laterality: Left Wound Grade/Stage: grade 1 Type of Debridement: Excisional debridement Anesthesia Used: 5% Lidocaine Gel Depth: in the subcutaneous layer Percentage of wound debrided: 100 Instrument Used: #15 blade Tissue Removed: fibrous, devitalized subcutaneous, biofilm, slough Severity: Fat Layer Exposed Amount of bleeding with debridement: Mild Bleeding Controlled with: Pressure Patient tolerated procedure well Assessment/Plan Assessment: This is a 77-year-old female with a long-standing history of chronic venous insufficiency, venous hypertension with inflammation, postphlebitic syndrome with inflammation, lower extremity swelling, lower extremity edema, venous stasis dermatitis etc. Her other medical illnesses are documented above. She has done well with conservative treatment measures, which have included leg elevation, avoidance of idle standing and sitting, active lifestyle, weight control measures, and the use of compression to the lower extremities. At this juncture, the patient appears to be optimized. Plan: We are to continue conservative treatment measures relative to the patient's chronic venous insufficiency and its associated manifestations. Patient has been advised to elevate her lower extremities as much as possible. She is to continue sleeping on a flat surface at night. Activity has been encouraged, though she is somewhat limited by her osteoarthritis. Weight loss has been recommended. Compression is to be administered by means of CircAid Velcro compression garments bilaterally, which have recently been obtained. The patient has done well, and is to be discharged at this time, with follow-up on an as-needed basis. The patient is to continue using her mechanical compression pumps several times daily. She has been advised to use moisturizing lotion in remedy to the scaly dermatitic changes in the distal lower extremities. Patient stands 5 feet 4 inches tall. She weighs 183 pounds. BMI is 31.4, which places her in a class I category. Weight loss has been recommended. It has been recommended that the patient collaborate with her primary care physician to explore weight loss options. Influenza vaccine was not administered today. The patient is not a smoker.
--- NOTE | 2020-08-01 12:46 | HP.PCM_ITS ---
(1) Type 2 diabetes mellitus with diabetic polyneuropathy Status: Chronic Code(s): E11.42 - Type 2 diabetes mellitus with diabetic polyneuropathy (2) Other specified peripheral vascular diseases Status: Chronic Code(s): I73.89 - Other specified peripheral vascular diseases (3) Ulcer of left lower extremity with fat layer exposed Status: Chronic Code(s): L97.922 - Non-pressure chronic ulcer of unspecified part of left lower leg with fat layer exposed (4) Localized edema Status: Chronic Code(s): R60.0 - Localized edema History of Present Illness Date of Service: 08/01/20 Chief Complaint: Left leg ulcer History of Wound: This is a 80-year-old female with long-standing history of swelling, edema, and chronic venous insufficiency in her lower extremities was seen today in clinic for a left leg ulcer. She relates this has been open for a couple of months and she was referred from [facility] by Dr Cruz. She relates she is also had an ulcer on the same leg dating back to several years ago which ultimately healed. Patient has a history of left lower extremity deep vein thrombosis approximately 25 years ago. She underwent coronary revascularization and mechanical aortic valve replacement in 1982, and has been on systemic anticoagulation since that time. Her lower extremity swelling and edema has been chronic. She has claudication symptoms and rest paresthesias. She relates she can only walk a couple of feet before she gets severe left leg fatigue and pain. She denies current redness or odor. She denies fever, chill, nausea, vomiting. She has been applying bacitracin to the ulcer site. She relates her primary care physician recently ordered labs on her within the last month in which she had this completed at an outside facility. She also had a recent vascular studies which she would like to review the results. 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) Hyperlipidemia (Chronic) Hypertension (Chronic) Diabetes type 2, controlled (Chronic) CHF (congestive heart failure) (Chronic) Peripheral vascular disease (Chronic) Lymphedema (Chronic) DVT (deep venous thrombosis) (Chronic) Diabetes mellitus (Chronic) Coronary artery disease (Chronic) A-fib (Chronic) Venous (peripheral) insufficiency (Chronic) Venous stasis dermatitis (Chronic) Osteoarthritis (Chronic) Leg swelling (Chronic) Postphlebetic syndrome with inflammation (Chronic) History of DVT (deep vein thrombosis) (Chronic) Venous hypertension, chronic, with inflammation (Chronic) Lymphedema of both lower extremities (Chronic) Ulcer, venous stasis, left (Chronic) left medial ankle S/P AAA (abdominal aortic aneurysm) repair (Chronic) Presence of prosthetic heart valve (Chronic) Peripheral edema (Chronic) Past Medical History: Diabetes, peripheral vascular disease, hypertension, hyp erlipidemia, history of deep venous thrombosis chronic kidney disease stage III, atrial fibrillation, coronary artery disease (pacer, CAD/CABG) Surgical History: angioplasty, coronary bypass surgery - x 2., hysterectomy, pacemaker implantation, - - Aortic valve replacement, AAA repair endoluminal. Allergies/Adverse Reactions: Allergies duloxetine [From Cymbalta] Allergy (Verified 05/02/16 14:48) Other Penicillins Allergy (Verified 05/02/16 14:48) Hives terbutaline [From Brethine] Allergy (Verified 05/02/16 14:48) Shortness of breath tolmetin Adverse Reaction (Verified 05/02/16 14:48) Unknown Home Medications: Ambulatory Orders Medication Instructions Recorded Allopurinol [Zyloprim] 100 mg PO DAILYCM 05/02/16 Aspirin 81 mg PO DAILY 05/02/16 Nitroglycerin (INPATIENT USE) 0.4 mg SUBLINGUAL Q5M PRN 05/02/16 [Nitrostat] Rosuvastatin Calcium [Crestor] 10 mg PO DAILY 05/02/16 Quinapril HCl [Accupril] 20 mg PO DAILY 06/30/17 Acetaminophen [Tylenol] 1,000 mg PO Q8H PRN PRN tablet 07/27/17 Carvedilol [Coreg (Beta Luci)] 3.125 mg PO BID #60 tab 07/27/17 Mineral Oil/Petrolatum,White 1 applic TOPICAL 0600,2200 jar 07/27/17 [Eucerin] Nystatin Powder [Mycostatin Powder] 1 applic TOPICAL 0600,2200 #1 07/27/17 bottle Polyethylene Glycol 3350 [Miralax] 17 gm PO DAILY #30 packet 07/27/17 Rizatriptan Benzoate [Maxalt] 10 mg PO DAILY PRN #30 tab 07/27/17 Warfarin [Coumadin] 3 mg PO DAILY@1700 #30 tab 07/27/17 - Family History Maternal Cancer, Diabetes, Heart Disease Paternal Cancer, Diabetes Lives: Spouse/ Significant Other Smoking Status: Former smoker Tobacco Use: Non-smoker Review of Systems Constitutional: Denies: Chills, Fever Cardiovascular: Reports: Claudication, Edema. Denies: Chest Pain Gastrointestinal: Denies: Nausea, Vomiting Musculoskeletal: Reports: Leg Pain. Denies: Foot Pain Skin: Reports: Skin Changes, Wounds Neurological: Reports: Numbness Hematologic/ Lymphatic: Reports: Hx of blood clot - Physical Exam Vital Signs Temp Pulse Resp BP 98 F 94 18 175/74 H 08/01/20 10:38 08/01/20 10:38 08/01/20 10:38 08/01/20 10:38 General: Alert, Oriented x3, Cooperative, No apparent distress HEENT: Atraumatic Extremities: No cyanosis, Capillary Refill Less than 3 Seconds, No Calf Tenderness - Negative Delmar and Reid sign and compartments remain soft to bilateral lower extremities, Diminished Peripheral Pulses - Nonpalpable pedal pulses, Edema - Left more than right Skin: Ulcer/ Wound - Fibrous and granular-based ulcer without deep tissue exposure, necrosis, odor, erythema, streaking, infection. Adjacent skin is hairless and atrophic distal to the proximal leg bilateral Wound Measurements and Assessment WC - Nurse 1 - General Ulcer Measurement Start: 08/01/20 09:56 Freq: Status: Active Protocol: Activity Type Activity Date Activity User E-Sign Co-Sign Detail Recorded Client Recorded Date Recorded By Document 08/01/20 10:28 RB [id number] 08/01/20 10:36 RB 08/01/20 10:28 Wound Center Nurse 1 [Ulcer Assessment] 2. LLE medial -Combined with other wound No -Current Size (cm) - Length 1.4 -Current Size (cm) - Width 1.5 -Current Size (cm) - Depth 0.1 -Total Square Cm 2.10 -Tunneling No -Undermining/Tunneling No -Circular Undermining No -Exudate Amt None Present -Wound Margin Flat & Intact -Granulation Amt None Present (0 %) -Slough/Fibrin Yes -Necrosis Amt Large (67-100%) -Necrotic Tissue Type Adherent Slough -Structure Exposed N/A -Texture (Lidia-wound Skin Appearance) Assessed, Localized Edema -Moisture (Lidia-wound Skin Appearance Assessed ) -Color (Lidia-wound Skin Appearance) Assessed -Temperature (Lidia-wound Skin No Abnormality Appearance) (Pt Warm) -Tenderness on Palpation (Lidia-wound No Skin Appearance) -Ulcer Cleansing Wound Cleanser -Foul Odor after Cleansing No -Anesthetic Used 5% Lidocaine Gel [Edema Assessment] -Lower Limb Edema Present Yes -Right Calf (cm) 38 -Right Ankle (cm) 23.5 -Left Calf (cm) 39.5 -Left Ankle (cm) 26 WC - Nurse 2 - General Ulcer CM Notes Start: 08/01/20 09:56 Freq: Status: Active Protocol: Activity Type Activity Date Activity User E-Sign Co-Sign Detail Recorded Client Recorded Date Recorded By Document 08/01/20 10:57 HEMANT [id number] 08/01/20 11:00 HEMANT 08/01/20 10:57 Wound Center Nurse 2 [Procedure/Treatment] 2. LLE medial -Time 10:59 -Correct Patient Yes -Correct Side, Site, Position Yes -Correct Procedure Yes -Procedure Performed Yes -Type of Procedure Debridement -Clinical Debridement Subcutaneous -Tissue Removed Subcutaneous -Post Debridement (cm) - Length 1.5 -Post Debridement (cm) - Width 1.4 -Post Debridement (cm) - Depth 0.2 -Total Square (Post) (cm) 2.10 -Area of Debridement (cm) - Length 1.5 -Area of Debridement (cm) - Width 1.4 -Total Square (Area) (cm) 2.10 -Tunneling No -Undermining/Tunneling No -Circular Undermining No -Wound/Ulcer Outcome Not Healed -Ulcer Cleansing Rinsed/ Irrigated with Saline -Foul Odor after Cleansing No -Bioengineered Tissue No -Offloading No -Treatment Response Procedure Tolerated Well -Debridement - Subq, 1st 20sq cm Yes [See Physician Procedure note for Specifics] Pain Scale: 0-10 Numeric [Pain] -Is Patient Pain Free? Yes Musculoskeletal: No Tenderness to Palpation of Joints or Extremities, Muscle Wasting Neurological: Sensory exam intact to light touch and pain Psych/Mental Status: Normal Affect, Appropriate Debridement Note Post-Debridement Measurements/Treatment WC - Nurse 2 - General Ulcer CM Notes Start: 08/01/20 09:56 Freq: Status: Active Protocol: Activity Type Activity Date Activity User E-Sign Co-Sign Detail Recorded Client Recorded Date Recorded By Document 08/01/20 10:57 HEMANT [id number] 08/01/20 11:00 HEMANT 08/01/20 10:57 Wound Center Nurse 2 2. LLE medial -Time 10:59 -Correct Patient Yes -Correct Side, Site, Position Yes -Correct Procedure Yes -Procedure Performed Yes -Type of Procedure Debridement -Clinical Debridement Subcutaneous -Tissue Removed Subcutaneous -Post Debridement (cm) - Length 1.5 -Post Debridement (cm) - Width 1.4 -Post Debridement (cm) - Depth 0.2 -Total Square (Post) (cm) 2.10 -Area of Debridement (cm) - Length 1.5 -Area of Debridement (cm) - Width 1.4 -Total Square (Area) (cm) 2.10 -Tunneling No -Undermining/Tunneling No -Circular Undermining No -Wound/Ulcer Outcome Not Healed -Ulcer Cleansing Rinsed/ Irrigated with Saline -Foul Odor after Cleansing No -Bioengineered Tissue No -Offloading No -Treatment Response Procedure Tolerated Well -Debridement - Subq, 1st 20sq cm Yes Pain Scale: 0-10 Numeric Is Patient Pain Free? Yes Wound debrided: medial lower leg Laterality: Left Wound Grade/Stage: grade 1 Type of Debridement: Excisional debridement Anesthesia Used: 5% Lidocaine Gel Depth: in the subcutaneous layer Percentage of wound debrided: 100 Instrument Used: #15 blade Tissue Removed: fibrous, devitalized subcutaneous, biofilm, slough Severity: Fat Layer Exposed Amount of bleeding with debridement: Mild Bleeding Controlled with: Compression and gauze Patient tolerated procedure well Assessment/Plan Active Problems Type 2 diabetes mellitus with diabetic polyneuropathy (Chronic) Other specified peripheral vascular diseases (Chronic) Ulcer of left lower extremity with fat layer exposed (Chronic) Localized edema (Chronic) Assessment: Left leg ulcer. Diabetes with neuropathy. Peripheral vascular disease with claudication. Venous insufficiency. Lower extremity edema. Delayed healing Plan: I reviewed and discussed her case. Debridement was performed as noted in the clinical panel. Reviewed etiology, treatment recommendations and anticipated healing time and management. She was reassured no local signs of infection are noted today. I reviewed her noninvasive vascular studies with abnormalities consistent with arterial occlusive disease. The right KEVIN 0.56 and toe brachial index 0.32. The left KEVIN 0.78 and toe brachial index of 0.3. The waveforms are nonconfirmable and an abnormal manner. I recommend a vascular surgery referral to Dr. Farrell at this time. Additional edema management will be considered after vascular recommendations are confirmed. She was advised to intermittently elevate the limbs and dissipate in activities throughout the day. To change her dressing daily with hydrogel and gauze. I would like to review her recent lab work including her A1c level. These will be requested from her primary care provider and these are not on file at [facility]. To return to clinic in 1 week or call sooner if she has any questions or concerns. She was educated on local and systemic signs of illness and was advised to call immediately if this is noted or go to the emergency room. I answered her questions. The problems addressed require a moderate decision making level which includes one or more chronic illnesses (w/ exacerbation, progression, or side effects), two or more stable chronic illnesses, one undiagnosed new problem w/ uncertain prognosis, one acute illness with systemic symptoms, or one acute complicated injury. The medical decision making level is moderate. There is noted moderate risk of morbidity after considering this treatment plan and diagnostic data. Considerations were given to prescription management, decisions regarding surgical options, or social determinants of health. Note: [employer] speech recognition insolvency consultant software was used to create portions of this document. Sound-alike and misspelled words, as well as other insolvency consultant errors may be contained in the documentation. . MACRA 2020: Reviewed today medication allergies are reviewed and reconciled. Elevated blood pressure is noted as 175/74. This is elevated she is advised to follow-up with her primary care physician. Nutrition and activity guidelines were discussed. Is been she had flu vaccination. Is current she is a non-smoker. She does not have a living will on file.
[2020-08-08 11:03] VITALS: BP 166/94; PULSE 106; RESP 20; TEMP 36
[2020-08-08 12:59] LABS: Absolute Lymphocyte Count 0.77 X10^3/uL (0.83-4.51); Absolute Neutrophil Count 4.8 X10^3/uL (2.0-7.7); Basophil# 0.03 X10^3/uL; Basophil% 0.5 % (0-1); Eosinophil# 0.48 X10^3/uL; Eosinophils% 7.3 % (0-5); Hematocrit 30.2 % (37-47); Lymphocyte # 0.77 X10^3/ul (4.0); Lymphocyte % 11.7 % (19-41); Mean Corp Hgb Conc 29.8 g/dL (32-36); Mean Corpuscular Hgb 27.5 pg (27.0-32.0); Mean Corpuscular Volume 92.4 fL (81-99); Mean Platelet Vol. 10.9 fl (6.2-12.0); Monocyte# 0.44 X10^3/uL; Monocyte% 6.7 % (0-10); NRBC Flagged by Analyzer 0 % (0-5); Neutrophil # 4.84 X10^3/uL (2.7-7.7); Neutrophil % 73.5 % (47-70); Platelet Count 199 K/mm3 (150-450); RBC Distribution Width CV 17.4 % (11.6-14.6); RBC Distribution Width SD 58.6 fl (35.1-43.9); Red Blood Count 3.27 M/mm3 (4.2-5.4); White Blood Count 6.6 K/mm3 (4.4-11.0)
[2020-08-08 13:18] LABS: ALB/GLOB Ratio 0.8 RATIO (0.9-2.4); AST(SGOT) 21 U/L (15-37); Alanine Aminotransfer ALT/SGPT 18 U/L (13-56); Albumin, Serum 3.6 g/dL (3.2-5.0); Alkaline Phosphatase 84 U/L (45-117); Anion Gap 3 (5-15); BUN 48 mg/dL (7-18); BUN/Creat Ratio 25.4 RATIO (10-20); Calcium,Total 9.6 mg/dL (8.5-10.1); Chloride 113 mmol/L (98-107); Creatinine, Serum 1.89 mg/dL (0.55-1.02); EST Glomerular Filtration Rate 27 mL/min (>60); Est Glom Filt Rate - Afr Amer 33 mL/min (>60); Globulin 4.6 g/dL (2.2-4.2); Glucose 85 mg/dL (74-106); Potassium 4.9 mmol/L (3.5-5.1); Protein, Total 8.2 g/dL (6.4-8.2); Sodium Level 141 mmol/L (136-145)
[2020-08-08 13:23] LABS: Hemoglobin A1c 5.3 % (3.8-5.6)
--- NOTE | 2020-08-08 21:54 | PN.PCM_ITS ---
(1) Type 2 diabetes mellitus with diabetic polyneuropathy Status: Chronic Code(s): E11.42 - Type 2 diabetes mellitus with diabetic polyneuropathy (2) Other specified peripheral vascular diseases Status: Chronic Code(s): I73.89 - Other specified peripheral vascular diseases (3) Ulcer of left lower extremity with fat layer exposed Status: Chronic Code(s): L97.922 - Non-pressure chronic ulcer of unspecified part of left lower leg with fat layer exposed (4) Localized edema Status: Chronic Code(s): R60.0 - Localized edema Type of Wound Date of Service: 08/08/20 Chief Complaint: Left leg ulcer History of Wound: This is a 80-year-old female with long-standing history of swelling, edema, and chronic venous insufficiency in her lower extremities was seen today in clinic for a left leg ulcer. She did not transmission worker her referral with vascular surgery yet. - Physical Exam Vital Signs Temp Pulse Resp BP 96.8 F L 106 H 20 H 166/94 H 08/08/20 11:03 08/08/20 11:03 08/08/20 11:03 08/08/20 11:03 General: Alert, Oriented x3, Cooperative, No apparent distress Extremities: No cyanosis, No edema, No Calf Tenderness, Diminished Peripheral Pulses Skin: Ulcer/ Wound - No purulence, erythema, string, odor, infection. Granular base ulcer. Adjacent thin skin Wound Measurements and Assessment WC - Nurse 1 - General Ulcer Measurement Start: 08/01/20 09:56 Freq: Status: Active Protocol: Activity Type Activity Date Activity User E-Sign Co-Sign Detail Recorded Client Recorded Date Recorded By Document 08/08/20 11:03 [id number] 08/08/20 11:15 DL 08/08/20 11:03 Wound Center Nurse 1 [Ulcer Assessment] 2. LLE medial -Current Size (cm) - Length 1.3 -Current Size (cm) - Width 1.2 -Current Size (cm) - Depth 0.2 -Total Square Cm 1.56 -Photo Taken No -Exudate Amt Medium -Exudate Type Serosanguineous -Wound Margin Distinct, Outline Attached -Granulation Amt Medium (34-66%) -Granulation Quality Red -Necrosis Amt Medium (34-66%) -Necrotic Tissue Type Adherent Slough -Structure Exposed N/A -Texture (Lidia-wound Skin Appearance) Scarring -Moisture (Lidia-wound Skin Appearance No Abnormality ) -Color (Lidia-wound Skin Appearance) Hemosiderin Staining -Temperature (Lidia-wound Skin No Abnormality Appearance) (Pt Warm) -Tenderness on Palpation (Lidia-wound No Skin Appearance) -Ulcer Cleansing Wound Cleanser -Foul Odor after Cleansing No -Anesthetic Used 4% Lidocaine Solution SHA - Nurse 2 - General Ulcer CM Notes Start: 08/01/20 09:56 Freq: Status: Active Protocol: Activity Type Activity Date Activity User E-Sign Co-Sign Detail Recorded Client Recorded Date Recorded By Document 08/08/20 11:38 HEMANT [id number] 08/08/20 11:40 HEMANT 08/08/20 11:38 Wound Center Nurse 2 [Procedure/Treatment] -Time 11:39 -Correct Patient Yes -Correct Side, Site, Position Yes -Correct Procedure Yes -Procedure Performed Yes -Type of Procedure Debridement -Clinical Debridement Subcutaneous -Tissue Removed Subcutaneous -Post Debridement (cm) - Length 1.3 -Post Debridement (cm) - Width 1.3 -Post Debridement (cm) - Depth 0.2 -Total Square (Post) (cm) 1.69 -Area of Debridement (cm) - Length 1.3 -Area of Debridement (cm) - Width 1.3 -Total Square (Area) (cm) 1.69 -Tunneling No -Undermining/Tunneling No -Circular Undermining No -Wound/Ulcer Outcome Not Healed -Ulcer Cleansing Rinsed/ Irrigated with Saline -Foul Odor after Cleansing No -Bioengineered Tissue No -Bleeding Controlled with Pressure -Offloading No -Treatment Response Procedure Tolerated Well -Debridement - Subq, 1st 20sq cm Yes [See Physician Procedure note for Specifics] Pain Scale: 0-10 Numeric [Pain] -Is Patient Pain Free? Yes SHA - Nurse 3 - General Ulcer D/C NN Start: 08/01/20 09:56 Freq: Status: Active Protocol: Activity Type Activity Date Activity User E-Sign Co-Sign Detail Recorded Client Recorded Date Recorded By Document 08/08/20 11:53 KR [id number] 08/08/20 11:53 KR 08/08/20 11:53 Wound Care Nurse 3 [Wound Dressing] 2. LLE medial -Ulcer Cleansing Rinsed/ Irrigated with Saline -Foul Odor after Cleansing No -Primary Dressing Applied C Hydrogel ($) -Primary Dressing Covered/Secured Dry Gauze, with Secured with Tape Pain Scale: 0-10 Numeric [Pain] -Is Patient Pain Free? Yes - Visit Discharge [Visit Discharge Information] -Discharge Condition Stable -Ambulatory Status Ambulatory -Transportation Private Auto -Accompanied by Musculoskeletal: No Tenderness to Palpation of Joints or Extremities, Muscle Wasting Psych/Mental Status: Normal Affect, Appropriate Debridement Note Post-Debridement Measurements/Treatment - Nurse 2 - General Ulcer CM Notes Start: 08/01/20 09:56 Freq: Status: Active Protocol: Activity Type Activity Date Activity User E-Sign Co-Sign Detail Recorded Client Recorded Date Recorded By Document 08/01/20 10:57 [id number] 08/01/20 11:00 Document 08/08/20 11:38 [id number] 08/08/20 11:40 08/01/20 08/08/20 10:57 11:38 Wound Center Nurse 2 2Homero BASSETT medial -Time 10:59 11:39 -Correct Patient Yes Yes -Correct Side, Site, Position Yes Yes -Correct Procedure Yes Yes -Procedure Performed Yes Yes -Type of Procedure Debridement Debridement -Clinical Debridement Subcutaneous Subcutaneous -Tissue Removed Subcutaneous Subcutaneous -Post Debridement (cm) - Length 1.5 1.3 -Post Debridement (cm) - Width 1.4 1.3 -Post Debridement (cm) - Depth 0.2 0.2 -Total Square (Post) (cm) 2.10 1.69 -Area of Debridement (cm) - Length 1.5 1.3 -Area of Debridement (cm) - Width 1.4 1.3 -Total Square (Area) (cm) 2.10 1.69 -Tunneling No No -Undermining/Tunneling No No -Circular Undermining No No -Wound/Ulcer Outcome Not Healed Not Healed -Ulcer Cleansing Rinsed/ Rinsed/ Irrigated with Irrigated with Saline Saline -Foul Odor after Cleansing No No -Bioengineered Tissue No No -Bleeding Controlled with Pressure -Offloading No No -Treatment Response Procedure Procedure Tolerated Well Tolerated Well -Debridement - Subq, 1st 20sq cm Yes Yes Pain Scale: 0-10 Numeric Is Patient Pain Free? Yes Yes - Nurse 3 - General Ulcer D/C NN Start: 08/01/20 09:56 Freq: Status: Active Protocol: Activity Type Activity Date Activity User E-Sign Co-Sign Detail Recorded Client Recorded Date Recorded By Document 08/08/20 11:53 KR [id number] 08/08/20 11:53 PAULO 08/08/20 11:53 Wound Care Nurse 3 2. LLE medial -Ulcer Cleansing Rinsed/ Irrigated with Saline -Foul Odor after Cleansing No -Primary Dressing Applied C Hydrogel ($) -Primary Dressing Covered/Secured with Dry Gauze, Secured with Tape Pain Scale: 0-10 Numeric Is Patient Pain Free? Yes WC - Visit Discharge Discharge Condition Stable Ambulatory Status Ambulatory Transportation Private Auto Accompanied by Wound debrided: leg Laterality: Left Wound Grade/Stage: grade 1 Type of Debridement: Excisional debridement Anesthesia Used: 5% Lidocaine Gel Depth: in the subcutaneous layer Percentage of wound debrided: 100 Instrument Used: #15 blade Tissue Removed: fibrous, devitalized subcutaneous, biofilm, slough Severity: Fat Layer Exposed Amount of bleeding with debridement: Mild Bleeding Controlled with: Pressure Patient tolerated procedure well Assessment/Plan Active Problems Type 2 diabetes mellitus with diabetic polyneuropathy (Chronic) Other specified peripheral vascular diseases (Chronic) Ulcer of left lower extremity with fat layer exposed (Chronic) Localized edema (Chronic) Assessment: Left leg ulcer. Diabetes with neuropathy. Peripheral vascular disease with claudication. Venous insufficiency. Lower extremity edema. Delayed healing Plan: I reviewed and discussed her case. Debridement was performed as noted in the clinical panel. Reviewed etiology, treatment recommendations and anticipated healing time and management. She was reassured no local signs of infection are noted today. I reviewed her noninvasive vascular studies with abnormalities consistent with arterial occlusive disease. The right KEVIN 0.56 and toe brachial index 0.32. The left KEVIN 0.78 and toe brachial index of 0.3. The waveforms are nonconfirmable and an abnormal manner. I recommend a vascular surgery referral to Dr. Farrell at this time. Additional edema management will be considered after vascular recommendations are confirmed. She was advised to intermittently elevate the limbs and dissipate in activities throughout the day. To change her dressing daily with hydrogel and gauze. I would like to review her recent lab work including her A1c level. These will be requested from her primary care provider and these are not on file at [facility]. To return to clinic in 1 week or call sooner if she has any questions or concerns. She was educated on local and systemic signs of illness and was advised to call immediately if this is noted or go to the emergency room. I answered her questions. She asks for help scheduling her vascular surgery refe rral and this will be completed. . Note: [employer] speech recognition termite helper software was used to create portions of this document. Sound-alike and misspelled words, as well as other termite helper errors may be contained in the documentation. . JERILYN 2020: Reviewed today medication allergies are reviewed and reconciled. Elevated blood pressure is noted as 175/74. This is elevated she is advised to follow-up with her primary care physician. Nutrition and activity guidelines were discussed. Is been she had flu vaccination. Is current she is a non-smoker. She does not have a living will on file.
== END 2020-08-26 23:59 ==
LOC: WC 11:15
PROVIDERS: PCP Family Medicine; Referring Provider Podiatrist; Visit Provider Podiatrist
DX: E11.622 Type 2 diabetes mellitus with other skin ulcer (principal); L97.822 Non-pressure chronic ulcer of other part of left lower leg with fat layer exposed; E11.42 Type 2 diabetes mellitus with diabetic polyneuropathy; I73.9 Peripheral vascular disease, unspecified; I87.2 Venous insufficiency (chronic) (peripheral); R60.0 Localized edema
CPT/HCPCS: 11042; 36415; 80053; 83036; 85025; 99213; G0463

== ENCOUNTER 2020-08-29 15:52 | Outpatient (RCR) | payer MEDICARE, OTHER, SELFPAY ==
[2020-08-27 00:07] VITALS: BP 166/94; PULSE 106; RESP 20; TEMP 36
[2020-08-29 15:56] VITALS: BP 153/54; PULSE 95; RESP 16; TEMP 35.5; BMI 29.0
--- NOTE | 2020-08-29 16:13 | PN.PCM_ITS ---
(1) Ulcer of left lower extremity with fat layer exposed Status: Chronic Code(s): L97.922 - Non-pressure chronic ulcer of unspecified part of left lower leg with fat layer exposed (2) Type 2 diabetes mellitus with diabetic polyneuropathy Status: Chronic Code(s): E11.42 - Type 2 diabetes mellitus with diabetic polyneuropathy (3) Other specified peripheral vascular diseases Status: Chronic Code(s): I73.89 - Other specified peripheral vascular diseases (4) Localized edema Status: Chronic Code(s): R60.0 - Localized edema Type of Wound Date of Service: 08/29/20 Chief Complaint: Left leg ulcer History of Wound: This is a 80-year-old female with long-standing history of swelling, edema, and chronic venous insufficiency in her lower extremities was seen today in clinic for a left leg ulcer. She did not tin stacker her referral with vascular surgery yet. She denies fever, chills, nausea, vomiting. She missed several appointments. She is with her today. Progress of Wound: stable - Physical Exam Vital Signs Temp Pulse Resp BP 96 F L 95 16 153/54 H 08/29/20 15:56 08/29/20 15:56 08/29/20 15:56 08/29/20 15:56 General: Alert, Oriented x3, Cooperative, No apparent distress Extremities: No cyanosis, Capillary Refill Less than 3 Seconds, No Calf Tenderness, Diminished Peripheral Pulses, Edema Skin: Ulcer/ Wound - no purulence, no erythema, no streaking, no odor, no infection. skin is hairless, atrophic to foot and distal 2/3 of leg Wound Measurements and Assessment WC - Nurse 1 - General Ulcer Measurement Start: 08/29/20 15:56 Freq: Status: Active Protocol: Activity Type Activity Date Activity User E-Sign Co-Sign Detail Recorded Client Recorded Date Recorded By Document 08/29/20 15:56 [facility] [id number] 08/29/20 16:01 [facility] 08/29/20 15:56 Wound Center Nurse 1 [Ulcer Assessment] 2. LLE medial -Combined with other wound No -Current Size (cm) - Length 1.5 -Current Size (cm) - Width 1.7 -Current Size (cm) - Depth 0.2 -Total Square Cm 2.55 -Photo Taken No -Epithelialization None Present -Tunneling No -Undermining/Tunneling No -Circular Undermining No -Exudate Amt Medium -Exudate Type Serosanguineous -Wound Margin Distinct, Outline Attached -Granulation Amt Medium (34-66%) -Granulation Quality Red -Slough/Fibrin Yes -Necrosis Amt Medium (34-66%) -Necrotic Tissue Type Adherent Slough -Texture (Lidia-wound Skin Appearance) Assessed, Scarring -Moisture (Lidia-wound Skin Appearance Assessed,Dry/ ) Scaly -Color (Lidia-wound Skin Appearance) Assessed -Temperature (Lidia-wound Skin No Abnormality Appearance) (Pt Warm) -Tenderness on Palpation (Lidia-wound No Skin Appearance) -Ulcer Cleansing Rinsed/ Irrigated with Saline -Foul Odor after Cleansing No -Anesthetic Used 4% Lidocaine Solution [Edema Assessment] -Lower Limb Edema Present Yes -Right Calf (cm) 44.5 -Right Ankle (cm) 25.8 WC - Nurse 2 - General Ulcer CM Notes Start: 08/29/20 15:56 Freq: Status: Active Protocol: Activity Type Activity Date Activity User E-Sign Co-Sign Detail Recorded Client Recorded Date Recorded By Document 08/29/20 16:09 [facility] [id number] 08/29/20 16:11 [facility] 08/29/20 16:09 Wound Center Nurse 2 [Procedure/Treatment] 2. LLE medial -Time 16:11 -Correct Patient Yes -Correct Side, Site, Position Yes -Correct Procedure Yes -Procedure Performed Yes -Type of Procedure Debridement -Clinical Debridement Subcutaneous -Tissue Removed Subcutaneous -Post Debridement (cm) - Length 1.5 -Post Debridement (cm) - Width 1.8 -Post Debridement (cm) - Depth 0.2 -Total Square (Post) (cm) 2.70 -Area of Debridement (cm) - Length 1.5 -Area of Debridement (cm) - Width 1.8 -Total Square (Area) (cm) 2.70 -Tunneling No -Undermining/Tunneling No -Circular Undermining No -Wound/Ulcer Outcome Not Healed -Ulcer Cleansing Rinsed/ Irrigated with Saline -Foul Odor after Cleansing No -Bioengineered Tissue No -Bleeding Controlled with Pressure -Offloading No -Treatment Response Procedure Tolerated Well -Debridement - Subq, 1st 20sq cm Yes [See Physician Procedure note for Specifics] Pain Scale: 0-10 Numeric [Pain] -Is Patient Pain Free? Yes Musculoskeletal: No Tenderness to Palpation of Joints or Extremities, Muscle Wasting Psych/Mental Status: Normal Affect, Appropriate Debridement Note Post-Debridement Measurements/Treatment WC - Nurse 2 - General Ulcer CM Notes Start: 08/29/20 15:56 Freq: Status: Active Protocol: Activity Type Activity Date Activity User E-Sign Co-Sign Detail Recorded Client Recorded Date Recorded By Document 08/29/20 16:09 [facility] [id number] 08/29/20 16:11 [facility] 08/29/20 16:09 Wound Center Nurse 2 2. LLE medial -Time 16:11 -Correct Patient Yes -Correct Side, Site, Position Yes -Correct Procedure Yes -Procedure Performed Yes -Type of Procedure Debridement -Clinical Debridement Subcutaneous -Tissue Removed Subcutaneous -Post Debridement (cm) - Length 1.5 -Post Debridement (cm) - Width 1.8 -Post Debridement (cm) - Depth 0.2 -Total Square (Post) (cm) 2.70 -Area of Debridement (cm) - Length 1.5 -Area of Debridement (cm) - Width 1.8 -Total Square (Area) (cm) 2.70 -Tunneling No -Undermining/Tunneling No -Circular Undermining No -Wound/Ulcer Outcome Not Healed -Ulcer Cleansing Rinsed/ Irrigated with Saline -Foul Odor after Cleansing No -Bioengineered Tissue No -Bleeding Controlled with Pressure -Offloading No -Treatment Response Procedure Tolerated Well -Debridement - Subq, 1st 20sq cm Yes Pain Scale: 0-10 Numeric Is Patient Pain Free? Yes Wound debrided: leg Laterality: Left Type of Debridement: Excisional debridement Anesthesia Used: 5% Lidocaine Gel Depth: in the subcutaneous layer Percentage of wound debrided: 100 Instrument Used: #15 blade Tissue Removed: fibrous, devitalized subcutaneous, biofilm, slough Severity: Fat Layer Exposed Amount of bleeding with debridement: Mild Bleeding Controlled with: Pressure Patient tolerated procedure well Assessment/Plan Active Problems Type 2 diabetes mellitus with diabetic polyneuropathy (Chronic) Other specified peripheral vascular diseases (Chronic) Ulcer of left lower extremity with fat layer exposed (Chronic) Localized edema (Chronic) Assessment: Left leg ulcer. Diabetes with neuropathy. Peripheral vascular disease with claudication. Venous insufficiency. Lower extremity edema. Delayed healing Plan: I reviewed and discussed her case. Debridement was performed as noted in the clinical panel. Reviewed etiology, treatment recommendations and anticipated healing time and management. She was reassured no local signs of infection are noted today. I reviewed her noninvasive vascular studies with abnormalities consistent with arterial occlusive disease. The right KEVIN 0.56 and toe brachial index 0.32. The left KEVIN 0.78 and toe brachial index of 0.3. The waveforms are nonconfirmable and an abnormal manner. I recommend a vascular surgery referral to Dr. Farrell at this time. Additional edema management will be considered after vascular recommendations are confirmed. She was advised to intermittently elevate the limbs and dissipate in activities throughout the day. To change her dressing daily with hydrogel and gauze. I would like to review her recent lab work including her A1c level. These will be requested from her primary care provider and these are not on file at [facility]. To return to clinic in 1 week or call sooner if she has any questions or concerns. She was educated on local and systemic signs of illness and was advised to call immediately if this is noted or go to the emergency room. I answered her questions. She asks for help scheduling her vascular surgery referral and this will be completed again today. She was advised she will still need to follow up on this and check her phone messages to kelton the date and time of this referral. We discussed potential additional work up or intervention to help her heal. . Note: [employer] speech recognition chemical laboratory scientist software was used to create portions of this document. Sound-alike and misspelled words, as well as other chemical laboratory scientist errors may be contained in the documentation. . [place]CRA 2020: Reviewed today medication allergies are reviewed and reconciled. Elevated blood pressure is noted as 175/74. This is elevated she is advised to follow-up with her primary care physician. Nutrition and activity guidelines were discussed. Is been she had flu vaccination. Is current she is a non-smoker. She does not have a living will on file.
[2020-08-29 16:15] VITALS: BP 150/60
== END 2020-09-26 23:59 ==
LOC: WC 15:52
PROVIDERS: PCP Family Medicine; Referring Provider Podiatrist; Visit Provider Podiatrist
DX: E11.622 Type 2 diabetes mellitus with other skin ulcer (principal); L97.822 Non-pressure chronic ulcer of other part of left lower leg with fat layer exposed; E11.51 Type 2 diabetes mellitus with diabetic peripheral angiopathy without gangrene; R60.0 Localized edema; E11.42 Type 2 diabetes mellitus with diabetic polyneuropathy; I87.2 Venous insufficiency (chronic) (peripheral)
CPT/HCPCS: 11042

== ENCOUNTER 2020-08-30 17:02 | Outpatient (RCR) | payer MEDICARE, OTHER, SELFPAY ==
[2020-08-29 15:56] VITALS: BMI 29.0
[2020-08-30] MEDS: COVID-19 VACC, MRNA(PFIZER)/PF 30 MCG/0.3 ML SYRINGE IM (14:17)
[2020-09-20] MEDS: COVID-19 VACC, MRNA(PFIZER)/PF 30 MCG/0.3 ML SYRINGE IM (13:21)
== END 2020-12-04 23:59 ==
LOC: IMMUN 17:02
PROVIDERS: PCP Surgery Vascular Surgery; Referring Provider Family Medicine; Visit Provider Family Medicine
DX: Z23 Encounter for immunization (principal)
CPT/HCPCS: 0001A; 0002A; 91300

== ENCOUNTER 2021-03-22 17:47 | Inpatient (IN) | payer MEDICARE, OTHER, SELFPAY ==
[2021-03-22 17:48] VITALS: BP 154/75; PULSE 87; RESP 16; TEMP 36.7; O2SAT 94; BMI 30.9
--- NOTE | 2021-03-22 18:00 | EKG12_ITS ---
Test Reason : DYSRHYTHMIA Blood Pressure : / mmHG Vent. Rate : 099 BPM Atrial Rate : 104 BPM P-R Int : 000 ms QRS Dur : 122 ms QT Int : 382 ms P-R-T Axes : 000 -12 139 degrees QTc Int : 490 ms Atrial fibrillation Septal infarct , age undetermined Nonspecific ST and T wave abnormality Abnormal ECG Confirmed by WOODROW CABALLERO, TRIP ([id number]), food editor SILVIA QUIGLEY ([id number]) on 03/25/2021 12:51:33 PM Referred By: BRITTNEE Confirmed By:TRIP TROY MD
--- NOTE | 2021-03-22 18:00 | CT_ITS ---
STUDY: CT BRAIN WITHOUT CONTRAST REASON FOR EXAM: Female, 80 years old. fall RADIATION DOSAGE (If Supplied By Facility): CTDIvol = ( 44.99 ) mGy, DLP = ( 812.98 ) mGycm TECHNIQUE: Transaxial CT imaging of the brain was performed without administration of intravenous contrast material. Individualized dose optimization techniques were used for this CT. COMPARISON: No relevant priors. FINDINGS: Normal soft tissue structures. Normal calvarium. There is mild cerebral atrophy with widening of the extra-axial spaces and ventricular dilatation. There are areas of decreased attenuation within the white matter tracts of the supratentorial brain, consistent with microvascular disease changes. There is no intracranial hemorrhage. There are no findings of an acute ischemic infarction. Chronic right cerebellar lacunar infarct. Atherosclerotic calcification of the cavernous carotid arteries. Normal visualized paranasal sinuses. CT/Brain/Head without Contrast IMPRESSION: 1. No acute findings. 2. Chronic right cerebellar lacunar infarct. 3. Microvascular ischemia. Atrophy. Electronically Signed: Sheila Wong MD at 19:57 EDT Tel , Service support ,
--- NOTE | 2021-03-22 18:00 | RAD_ITS ---
STUDY: X-RAY CHEST REASON FOR EXAM: Female, 80 years old. fall TECHNIQUE: Single AP portable view of the chest. COMPARISON: 07/06/2017. FINDINGS: The lungs are clear and expanded. There is no demonstrated pleural abnormality. Normal size heart. 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 Normal mediastinum and bam. Normal visualized pulmonary arteries. Normal visualized aortic arch and descending thoracic aorta. Normal visualized thoracic spine. Normal visualized ribs, clavicles, and shoulders. There is no demonstrated abnormality of the visualized soft tissue structures of the upper abdomen. RAD/Chest 1 View (Portable) IMPRESSION: Normal x-ray examination of the chest. Electronically Signed: Sheila Wong MD at 20:34 EDT Tel , Service support ,
--- NOTE | 2021-03-22 18:02 | EDS_ITS ---
HPI History of Present Illness Chief Complaint: Lower Extremity Injury Detail of Chief Complaint: Fall with left hip injury and right back injury Informant: patient Narrative Narrative: Patient presents to the emergency department complaint of a fall that occurred prior to arrival in the emergency department. Patient presents via EMS. Patient states that she had gotten out of her car and try to grab the handle and lost her balance and fell injuring her left hip. Patient did strike her head and she is on Coumadin. Patient also complains of pain to the right shoulder blade. She denies any neck pain. She denies chest pain or abdominal pain. Prior similar symptoms: No PFSH PFSH Home Medications allopurinol 100 mg PO DAILY 05/02/16 [History Last Taken Unknown] aspirin 81 mg PO DAILY 05/02/16 [History Last Taken Unknown] nitroglycerin 0.4 mg SUBLINGUAL Q5M PRN 05/02/16 [History Last Taken Unknown] quinapril [Accupril] 10 mg PO DAILY 06/30/17 [History Last Taken Unknown] Mineral Oil/Petrolatum,White [Eucerin] 1 applic TOPICAL 0600,2200 jar 07/27/17 [Rx Last Taken Unknown] atorvastatin 80 mg PO 08/28/20 [History Last Taken 1 Day Ago ~08/27/20 80 mg] ferrous sulfate 325 mg PO DAILY 08/28/20 [History Last Taken Unknown] furosemide 20 mg PO BID 08/28/20 [History Last Taken Unknown] isosorbide mononitrate 30 mg PO DAILY 08/28/20 [History Last Taken Unknown] metoprolol succinate 25 mg PO DAILY 08/28/20 [History Last Taken Unknown] pantoprazole 40 mg PO DAILY 08/28/20 [History Last Taken Unknown] warfarin 3 mg PO DAILY 08/28/20 [History Last Taken Unknown] imipramine HCl [Tofranil] 25 mg PO QHS 11/02/20 [History Last Taken Unknown] fluoxetine 10 mg PO DAILY 03/07/21 [History Last Taken Unknown] Allergy/AdvReac Type Severity Reaction Status Date / Time duloxetine [From Cymbalta] Allergy Other Verified 03/22/21 17:58 Penicillins Allergy Hives Verified 03/22/21 17:58 terbutaline [From Brethine] Allergy Shortness Verified 03/22/21 17:58 of breath tolmetin AdvReac Unknown Verified 03/22/21 17:58 Social History Smoking Status: Former smoker ROS ROS ED Constitutional Constitutional ED: Reports systems reviewed and no addt'l complaints, except as documented; Denies body ache(s), change in weight or chills Eyes Eyes: Denies acute decrease in peripheral vision, change in vision, double vision or loss of vision ENT ENT ED: Reports none; Denies ear pain, lip swelling, loss taste/smell, neck pain, otalgia or sore throat Cardiovascular Cardiovascular: Reports none; Denies abdominal pain, chest pain with activity, leg edema, lightheadedness, palpitations, rapid heart rate or syncope Respiratory/Chest Respiratory/Chest: Reports none; Denies change in mental status, dry cough, dyspnea, hemoptysis, shortness of breath at rest or shortness of breath with exertion Gastrointestinal Gastrointestinal: Reports none; Denies abdominal pain, change in stool character, diarrhea, hematemesis, hematochezia, melena, rectal bleeding or vomiting Genitourinary Genitourinary ED: Reports none; Denies abdominal discomfort, anuria, dysuria, genital pain or polyuria Musculoskeletal Musculoskeletal: Reports none, back pain and other Details: Left hip pain ; Denies arthralgias, difficulty walking, extremity pain, muscle weakness or myalgias Integumentary Reports none; Denies abscess or rash Neurologic Neurologic: Reports none; Denies abnormal gait, confusion, focal weakness, frequent falls, headache(s), loss of vision, numbness, paresthesias, radicular pain, vertigo or weakness Psychiatric Psychiatric: Reports systems reviewed and no addt'l complaints, except as documented and none; Denies behavioral changes, confusion, difficulty concentrating, hallucinations, suicidal ideation, tactile hallucinations or visual hallucinations Endocrine Endocrinology: Denies none, cold intolerance, excessive sweating, fatigue or heat intolerance Hematologic/Lymphatic Hematologic/Lymphatic: Reports none; Denies anemia, easy bleeding or easy bruising Allergic/Immunologic Allergic/Immunologic ED: Denies as per HPI, none, lip swelling, mouth swelling, throat swelling, tongue swelling or hives EXAM Physical Exam Const Vital Signs: 03/22/21 17:48 Temperature 98.0 F Temperature Source Oral Pulse Rate 87 Respiratory Rate 16 Blood Pressure 154/75 H Blood Pressure Mean 101 Pulse Ox 94 Oxygen Delivery Method Room Air Positive well nourished and well developed General Appearance ED: well developed and NAD HEENT Reports TM's clear and moist mucous membranes normocephalic and atraumatic; Negative for trauma or tenderness Tympanic Membrane ED: Yes TM's clear Eyes PERRL and EOMs intact bilaterally General Eye ED: Negative for pale conjunctiva or scleral icterus Neck no lymphadenopathy, supple and no JVD General: Negative for tenderness Chest Wall inspection of chest normal and palpation of chest normal Chest: Negative for tenderness Resp normal respiratory effort and clear to auscultation bilaterally Effort and Inspection: Negative for respiratory distress or pain with movement Auscultation: Negative for rhonchi, wheezes or diminished lung sounds Cardio regular rate, regular rhythm, S1 normal heart sound, S2 normal heart sound and no murmurs Peripheral Pulses: pulses 2+ throughout GI normal to inspection, nondistended, normoactive bowel sounds, soft to palpation, non-tender, non-distended and no masses Back/Spine no CVA tenderness and no thoracic nor lumbar tenderness Back/Spine Narrative: Patient has some tenderness palpation over the right scap britta and right upper back. No subcu emphysema or crepitus noted. Extremity Extremity Narrative: Patient has tenderness palpation of her left hip. No significant shortening noted. There is no rotational deformity. Patient has pain with logrolling. She is neurovascular intact. General Extremety ED: Negative for edema General Extremity: Negative for edema Neuro oriented x3, CN's II-XII intact bilaterally, no sensory deficits noted and gait normal Sensorium / Orientation: awake, alert, oriented to person, oriented to place and oriented to time Motor Exam: strength 5/5 throughout and strength abnormal Psych mental status grossly normal Skin no rashes or lesions noted and no wounds MDM MDM MDM Narrative Medical decision making narrative: Case will be discussed with hospitalist evaluate for admission. Case will be discussed with orthopedic surgeon. Patient noted to have a left intertrochanteric hip fracture. Lab Data Attestation: I reviewed the patient's lab results. Radiography Diagnostic Testing: One view chest x-ray obtained interpreted by myself as no acute disease process. Patient had three views of left hip which showed intertrochanteric hip fracture on my interpretation. Official report from radiology pending. EKG Initial EKG: Attestation: I personally reviewed and interpreted this EKG as follows: Comments: A. fib with a ventricular rate of 99 bpm with old septal infarct Discharge Plan Triage Chief Complaint: Lower Extremity Injury ED Provider: Clive Noe Dx/Rx/DC Orders Clinical Impression: Closed left hip fracture, A-fib, Fall Prescriptions: No Action allopurinol 100 MG tablet 100 mg PO DAILY RF: 0 nitroglycerin 0.4 MG tablet 0.4 mg sublingual Q5M PRN (Reason: Chest Pain) RF: 0 aspirin 81 MG Tab.Chew 81 mg PO DAILY RF: 0 quinapril [Accupril] 20 MG tablet 10 mg PO DAILY RF: 0 Mineral Oil/Petrolatum,White [Eucerin] 1 APPLIC Jar 1 applic topical 0600,2200 RF: 0 atorvastatin 80 MG tablet 80 mg PO RF: 0 metoprolol succinate 50 MG tablet 25 mg PO DAILY RF: 0 isosorbide mononitrate 60 MG tablet 30 mg PO DAILY RF: 0 pantoprazole 40 MG tablet 40 mg PO DAILY RF: 0 ferrous sulfate 325 MG tablet 325 mg PO DAILY RF: 0 furosemide 20 MG tablet 20 mg PO BID RF: 0 warfarin 3 MG tablet 3 mg PO DAILY RF: 0 imipramine HCl [Tofranil] 25 mg Tablet 25 mg PO QHS RF: 0 fluoxetine 10 mg Capsule 10 mg PO DAILY RF: 0 Primary Care Provider: Huey Wong Referrals: Huey Wong [Primary Care Provider] - Disposition Disposition: Acute Care Hospital [facility]
--- NOTE | 2021-03-22 18:02 | RAD_ITS ---
STUDY: X-RAY - PELVIS AND LEFT HIP REASON FOR EXAM: Female, 80 years old. fall TECHNIQUE: 3 views of the pelvis and hip. COMPARISON: None. FINDINGS: There is an acute intertrochanteric fracture of the left femur with moderate varus angulation. No displacement. No additional fracture. Joint spaces are well-maintained. Normal alignment. Aortoiliac stent. Extensive atherosclerotic vascular calcification. No radiopaque foreign body or soft tissue gas. RAD/HIP, UNI W/ Pelvis 2-3 Views IMPRESSION: Acute intertrochanteric fracture of the left femur. Electronically Signed: Sheila Wong MD at 20:38 EDT Tel , Service support ,
[2021-03-22] MEDS: 0.9% Normal Saline 1,000 ML 150 ML IV (18:26)
[2021-03-22] MEDS: Morphine 4 MG/ML Syringe IV ×3 (18:27→21:47)
[2021-03-22] MEDS: Ondansetron 4 MG/2 ML Vial IV (18:27)
[2021-03-22 19:30] VITALS: BP 154/75; PULSE 87; RESP 16; TEMP 36.7; O2SAT 94
[2021-03-22 19:46] LABS: Absolute Lymphocyte Count 1.15 X10^3/uL (0.83-4.51); Absolute Neutrophil Count 5.9 X10^3/uL (2.0-7.7); Basophil# 0.03 X10^3/uL; Basophil% 0.4 % (0-1); Eosinophil# 0.36 X10^3/uL; Eosinophils% 4.5 % (0-5); Hematocrit 32.2 % (37-47); Hemoglobin 10.1 g/dL (12.0-15.0); Lymphocyte # 1.15 X10^3/ul (0.83-4.51); Lymphocyte % 14.5 % (19-41); Mean Corp Hgb Conc 31.4 g/dL (32-36); Mean Corpuscular Hgb 28.1 pg (27.0-32.0); Mean Corpuscular Volume 89.4 fL (81-99); Mean Platelet Vol. 11.3 fl (6.2-12.0); Monocyte# 0.42 X10^3/uL; Monocyte% 5.3 % (0-10); NRBC Flagged by Analyzer 0 % (0-5); Neutrophil # 5.93 X10^3/uL (2.7-7.7); Neutrophil % 74.7 % (47-70); Platelet Count 154 K/mm3 (150-450); RBC Distribution Width CV 17.2 % (11.6-14.6); RBC Distribution Width SD 56.5 fl (35.1-43.9); White Blood Count 7.9 K/mm3 (4.4-11.0)
--- NOTE | 2021-03-22 19:50 | PCM.HP.STD ---
HPI - General General Date of Admission: 03/22/21 Date of Service: 03/22/21 Chief Complaint: Fall, L hip pain HPI Narrative The patient is an 80 y/o F w/ PMHx: CKD stage III unclear subtype, Chronic anemia, Chronic Diastolic CHF, HTN, HLD, Valvular Heart Disease s/p AVR, AAA s/p endoluminal repair, CAD s/p CABG x 2 and PCI, Chronic AF s/p pacemaker placement, Hx DVT, Diabetes mellitus type II, Chronic venous stasis disease, Chronic BL LE wounds following with wound care center complicated by BL LE Chronic Lymphedema who presents to the [facility] ED on 03/22/21 with history of unfortunate mechanical fall while attempting to get into the car with significant onset left-sided hip pain, debility and deformity prompting ED evaluation. Patient rating pain 10 out of 10 with any movement attempts however at rest rating it 6 out of 10, sharp, constant. Work-up in the ED included T 98.9, heart rate 82, BP 131/85, respiratory rate 16, initially 94% on room air however following pain medications required 2 L nasal cannula to maintain 98% oxygenation, CBC with WC 7.9, hemoglobin 10.1, platelet 154 without marked shift, coags with PT 37.3, INR 3.9, BMP with chloride 108, BUN/creatinine 57/1.93, high-sensitivity troponin 17, BNP 177.3, EKG with rate controlled atrial fibrillation with no acute evidence of ischemia with nonspecific changes, urinalysis not marked appearing, chest x-ray with no acute cardiopulmonary findings, CT of the brain with no acute intracranial findings with chronic right cerebellar lacunar infarct, microvascular ischemia and atrophy. ED discussed case with Dr. Antoine, orthopedic surgery. FORMERLY [facility], [facility] Medical History (Updated 03/23/21 @ 05:[address] Darlene Del Valle MD) A-fib CHF (congestive heart failure) Diabetes type 2, controlled DVT (deep venous thrombosis) Former smoker Hyperlipidemia Hypertension Peripheral vascular disease Presence of cardiac pacemaker Presence of prosthetic heart valve Venous (peripheral) insufficiency Home Medications allopurinol 100 mg PO DAILY 05/02/16 [History Last Taken Unknown] aspirin 81 mg PO DAILY 05/02/16 [History Last Taken Unknown] nitroglycerin 0.4 mg SUBLINGUAL Q5M PRN 05/02/16 [History Last Taken Unknown] quinapril [Accupril] 10 mg PO DAILY 06/30/17 [History Last Taken Unknown] atorvastatin 80 mg PO DAILY 08/28/20 [History Last Taken 1 Day Ago ~08/27/20 80 mg] ferrous sulfate 325 mg PO DAILY 08/28/20 [History Last Taken Unknown] furosemide 20 mg PO BID 08/28/20 [History Last Taken Unknown] isosorbide mononitrate 30 mg PO DAILY 08/28/20 [History Last Taken Unknown] metoprolol succinate 25 mg PO DAILY 08/28/20 [History Last Taken Unknown] warfarin 3 mg PO TUTHSA 08/28/20 [History Last Taken Unknown] imipramine HCl [Tofranil] 25 mg PO QHS 11/02/20 [History Last Taken Unknown] Mineral Oil/Petrolatum,White [Eucerin] 1 applic TOPICAL 0600,2200 03/22/21 [History Last Taken Unknown] lorazepam 0.5 - 1 mg PO BID PRN 03/22/21 [History Last Taken Unknown] warfarin 4.5 mg PO QMWF 03/22/21 [History Last Taken Unknown] Allergy/AdvReac Type Severity Reaction Status Date / Time duloxetine [From Cymbalta] Allergy Other Verified 03/22/21 17:58 Penicillins Allergy Hives Verified 03/22/21 17:58 terbutaline [From Brethine] Allergy Shortness Verified 03/22/21 17:58 of breath tolmetin AdvReac Unknown Verified 03/22/21 17:58 Family History (Updated 03/23/21 @ 05:[address] Darlene Del Valle MD) Mother Cancer Diabetes Heart disease Hypertension Father Cancer Diabetes Surgical History (Updated 03/23/21 @ 05:[address] Darlene Del Valle MD) History of hysterectomy Hx of heart artery stent S/P AAA (abdominal aortic aneurysm) repair S/P AVR (aortic valve replacement) S/P CABG x 2 S/P placement of cardiac pacemaker Social History (Updated 03/23/21 @ 05:[address] Darlene Del Valle MD) household members: other details: Living alone, spouse 09/2020. Smoking Status: Former smoker alcohol intake: never substance use type: does not use ROS ROS Narrative Admission Review of Systems: CONSTITUTIONAL: No weight loss, fever, chills, + weakness or fatigue. HEENT: Eyes: No visual loss, blurred vision, double vision or yellow sclerae. Ears, Nose, Throat: No hearing loss, sneezing, congestion, runny nose or sore throat. SKIN: No rash or itching, lesions, wounds. CARDIOVASCULAR: No chest pain, chest pressure or chest discomfort, palpitations, edema, orthopnea, syncopal events. RESPIRATORY: No shortness of breath, cough or sputum, wheezing, hemoptysis. GASTROINTESTINAL: No anorexia, nausea, vomiting or diarrhea, abdominal pain, melena, BRBPR. GENITOURINARY: No dysuria, frequency, urgency or retention. NEUROLOGICAL: No headache, dizziness, syncope, paralysis, ataxia, numbness or tingling in the extremities, focal weakness, change in bowel or bladder control, seizure. MUSCULOSKELETAL: + muscle, back pain, joint pain or stiffness. HEMATOLOGIC: + anemia, bleeding or bruising. LYMPHATICS: No enlarged nodes. No history of splenectomy. PSYCHIATRIC: + history of depression or anxiety. ENDOCRINOLOGIC: No reports of sweating, cold or heat intolerance. No polyuria or polydipsia. ALLERGIES: No history of asthma, hives, eczema or rhinitis. Vital Signs Vital Signs Vital Signs: 03/22/21 17:48 03/22/21 19:30 Temperature 98.0 F 98.0 F Temperature Source Oral Oral Pulse Rate 87 87 Respiratory Rate 16 16 Blood Pressure 154/75 H 154/75 H Blood Pressure Mean 101 101 Pulse Ox 94 94 Oxygen Delivery Method Room Air Room Air Weight Weight: 191 lb 9.307 oz Body Mass Index (BMI) 30.9 Physical Exam Narrative Physical Examination: General: Awake, alert, oriented x 3 and cooperative, seated upright in bed in no apparent distress. Skin: Normal color, normal turgor, no icterus, no cyanosis except chronic bilateral lower extremity stasis disease, well-healed chronic wounds. HEENT: AT/NC, EOMI, PERRLA, mildly dry MM, no carotid bruits or JVD noted. Lungs: Diminished, greater bases, moderate effort, no rales, ronchi or wheezing. Heart: Irregular, rate controlled; no gallop, rub audible, + SM. Abdomen: Soft, NTTP, ND, normal BS, no HSM. Extremities: No cyanosis, no clubbing, chronic bilateral lower extremity stasis disease, well-healing chronic wounds, chronic lymphedema, peripheral pulses intact, left externally rotated hip. Neurological: Patient awake, alert, oriented as noted, cognitive function intact; pupils equally reactive to light and accommodation, cranial nerves II-XII grossly normal, moving all 4 extremities except significantly limited left lower extremity movement given left hip fracture, strength severely global decreased accordingly. Psychiatric: Affect appears to, uncomfortable, no acute evidence of depressive or anxiety feelings. Results Lab / Micro Data Result Diagrams: 03/22/21 19:15 03/22/21 19:15 Labs: Laboratory Results - last 24 hr 03/22/21 19:15: WBC 7.9, RBC 3.60 L, Hgb 10.1 L, Hct 32.2 L, MCV 89.4, MCH 28.1, MCHC 31.4 L, RDW Std Deviation 56.5 H, RDW Coeff of Micehlet 17.2 H, Plt Count 154, MPV 11.3, Immature Gran % (Auto) 0.600, Neut % (Auto) 74.7 H, Lymph % (Auto) 14.5 L, Gooding % (Auto) 5.3, Eos % (Auto) 4.5, Baso % (Auto) 0.4, Absolute Neuts (auto) 5.9, Absolute Lymphs (auto) 1.15, Nucleated RBC % 0 Assessment & Plan Assessment/Plan (1) Closed left hip fracture: QUALIFIERS: Encounter type: initial encounter Qualified Code(s): S72.002A - Fracture of unspecified part of neck of left femur, initial encounter for closed fracture PLAN: The patient is an 80 y/o F w/ PMHx: CKD stage III unclear subtype, Chronic anemia, Chronic Diastolic CHF, HTN, HLD, Valvular Heart Disease s/p AVR, AAA s/p endoluminal repair, CAD s/p CABG x 2 and PCI, Chronic AF s/p pacemaker placement, Hx DVT, Diabetes mellitus type II, Chronic venous stasis disease, Chronic BL LE wounds following with wound care center complicated by BL LE Chronic Lymphedema who presents to the [facility] ED on 03/22/21 with history of unfortunate mechanical fall while attempting to get into the car with significant onset left-sided hip pain, debility and deformity prompting ED evaluation. 1. General debility, L hip pain s/p mechanical fall w/ L hip fracture: Orthopedic surgery consulted from ED. 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 Will need PT/OT following operative intervention. CM consulted for discharge planning. Per NSQIP patient is considered at least moderate risk especially given underlying cardiac history, discussed case with cardiology who will be consulted and will evaluate, records requested from patient's previous facilities, echocardiogram requested, pacer evaluation also requested. If felt appropriate per cardiology patient will progress to OR and if appropriate may need to consider Coumadin reversal, currently only held as unclear specific cardiac history. 2. Chronic diastolic CHF: Holding patient Coumadin, repeat INR in a.m., may need to consider reversal pending cardiology evaluation of patient to assure safe as significant cardiac history and is not followed here previously, records requested, continue aspirin, statin, metoprolol, quinapril, Lasix regimen. 3. Incidentally noted chronic right cerebellar lacunar infarct: CT of the head obtained upon presentation with noted chronic right cerebellar lacunar infarct, currently on Coumadin however will hold given acute presentation with necessity for hip fracture intervention although awaiting cardiology input, regimen, diabetic regimen, statin therapy. 4. CAD: Status post PCI and CABG x2, holding Coumadin with INR trending as noted, continue aspirin, statin, metoprolol, quinapril regimen. 5. Chronic atrial fibrillation: We will continue patient home metoprolol regimen, holding Coumadin as noted with INR trending with potential need for reversal, unclear if pacemaker placement was associated with atrial fibrillation, device evaluation requested. 6. 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 7. Hypertension: Continue home regimen including Lasix, quinapril, metoprolol, isosorbide regimen with hold parameters as needed, PRN hydralazine. 8. Hyperlipidemia: We will continue patient on statin therapy. 9. Diabetes mellitus type II: Noted in history, not on regimen, hemoglobin A1c requested, ADA diet until n.p.o. status at midnight, accu checks w/ ISS. 10. Chronic normocytic anemia: Admission hemoglobin 10.1, prior baseline 10-11, stable, trend. 11. Chronic Kidney Disease Stage III, unclear subtype: Admission BUN/Cr 57/1.93, baseline renal function 1.4-1.8, most recently 08/08/2020 1.89, repeat BMP in AM. 12. History of DVT: Unclear timeline, currently as noted holding Coumadin given acute presentation, trending INR. 13. Chronic PVD with bilateral lower extremity chronic wounds: Patient following with wound care, small stasis wounds noted, no obvious infection, will request wound RN consultation, dressings. 14. DVT prophylaxis: SCDs, holding Coumadin with INR trending as noted above. 15. CODE status: Patient HCPOA is Kathie Butler and living will is currently in place. Discussed CODE status at length including difference between FULL code, DNR-CCA and DNR-CC status. Following discussions about the differences in these status, requested DNR-CCA, no intubation status. Advanced Care Planning Face to Face Time: 16 minutes. Charges/Coding Visit Charges Inpatient E&M: 70143 Init Hosp L3 Procedures Hospitalists Procedures: 00269 Advncd Care Plan 30 Min
[2021-03-22 19:59] LABS: International Normalized Ratio 3.9; Prothrombin Time (Protime)PT. 37.3 SECONDS (11.7-14.9)
[2021-03-22 20:02] LABS: Anion Gap 6 (5-15); BUN 57 mg/dL (7-18); BUN/Creat Ratio 29.5 RATIO (10-20); Calcium,Total 9.6 mg/dL (8.5-10.1); Chloride 108 mmol/L (98-107); Creatinine, Serum 1.93 mg/dL (0.55-1.02); EST Glomerular Filtration Rate 26 mL/min (>60); Est Glom Filt Rate - Afr Amer 32 mL/min (>60); Glucose 106 mg/dL (74-106); Potassium 4.3 mmol/L (3.5-5.1); Sodium Level 139 mmol/L (136-145); Troponin-I HS 17 pg/mL (3.0-54.0)
[2021-03-22 20:05] VITALS: BP 140/69; PULSE 92; RESP 18; O2SAT 86
[2021-03-22 20:07] VITALS: O2SAT 95
--- NOTE | 2021-03-22 20:07 | ED.RN ---
PT wanted more pain medication. Educated PT for side effects of pain meds ie: respiratory depression, as evidenced by decreased O2 saturations needing oxygen. She thanked me and held off on more meds.
[2021-03-22 20:21] LABS: Magnesium 2.3 mg/dL (1.6-2.6)
[2021-03-22 20:32] LABS: BNP,B-Type NATRIURETIC PEPTIDE 177.3 pg/mL (0-100)
--- NOTE | 2021-03-22 20:40 | PCS.PANDOC ---
PANDEMIC DOCUMENTATION INITIATED: Date: 02/11/2021 Time: 190
[2021-03-22 22:26] VITALS: BMI 27.6
[2021-03-22 22:29] VITALS: BP 131/85; PULSE 82; RESP 16; TEMP 37.2; O2SAT 98
--- NOTE | 2021-03-22 23:33 | ECHOD_ITS ---
Version 2 Reason For Study: CHF, AVR, CAD, Pre op Procedure This was a 2D Doppler, Color Flow transthoracic echocardiogram. Patient scanned supine d/t hip fracture. The study was technically difficult. Exam performed portable in patient room. Left Ventricle Normal LV size. Left ventricular systolic function is normal. The estimated ejection fraction is 55 %. Unable to assess diastolic dysfunction. Apical wall motion abnormality may reflect pacemaker activation. Right Ventricle Normal RV size. ICD or pacer leads identified within the right ventricle. Normal systolic function. Atria The left atrium is moderately enlarged. The right atrium is mildly enlarged. ICD or pacer leads identified within the right atrium. Color-flow Doppler appearing compatible with an intra-atrial communication compatible with a small ASD with left to right interatrial shunting. Mitral Valve There is mild mitral annular calcification. Extension of the mitral annular calcification on the base of the posterior mitral valve leaflet. Mild (1+) mitral valve insufficiency. Tricuspid Valve Normal tricuspid valve. Mild to moderate (1-2+) tricuspid valve insufficiency. Right ventricular systolic pressure estimated to be 47 mmHg. Aortic Valve Stable appearing mechanical aortic valve apparatus. Trivial transvalvular insufficiency of the aortic valve. Pulmonic Valve The pulmonic valve is not well visualized. Great Vessels Mildly dilated aortic root. Pericardium/Pleural No pericardial effusion. MMode/2D Measurements & Calculations LVIDd: 5.3 cm IVSd: 1.2 cm LVOT diam: 2.0 cm LVIDs: 3.7 cm LVPWd: 1.1 cm LVOT area: 3.2 cm2 RVDd: 3.3 cm FS: 29.6 % Ao root diam: 4.1 cm LAV(MOD-bp): 91.3 ml LA A4 area: 29.8 cm2 LAV(MOD-bp) Indexed: 48.8 ml/m2 LAV(MOD-sp2): 70.1 ml LAV(MOD-sp4): 98.7 ml LA dimension(2D): 3.8 cm RA A4 area: 21.7 cm2 Doppler Measurements & Calculations MV E max dino: 101.2 cm/sec Ao V2 max: 188.7 cm/sec LV V1 max: 116.3 cm/sec Ao max P.3 mmHg LV V1 max P.4 mmHg Ao V2 mean: 125.9 cm/sec LV V1 mean P.4 mmHg Ao mean P.1 mmHg LV V1 mean: 72.5 cm/sec Ao V2 VTI: 38.4 cm LV V1 VTI: 22.2 cm KAYCEE(I,D): 1.8 cm2 KAYCEE(V,D): 2.0 cm2 SV(LVOT): 70.7 ml PA V2 max: 76.4 cm/sec TR max dino: 329.8 cm/sec TR max P.6 mmHg ECHO/Echo Complete Interpretation Summary The study was technically difficult. Left ventricular systolic function is normal. The estimated ejection fraction is 55 %. Apical wall motion abnormality may reflect pacemaker activation. The left atrium is moderately enlarged. The right atrium is mildly enlarged. There is mild mitral annular calcification. Extension of the mitral annular calcification on the base of the posterior mitr al valve leaflet. Mild (1+) mitral valve insufficiency. Mild to moderate (1-2+) tricuspid valve insufficiency. Stable appearing mechanical aortic valve apparatus. Trivial transvalvular insufficiency of the aortic valve. Mildly dilated aortic root. Right ventricular systolic pressure estimated to be 47 mmHg. Unable to assess diastolic dysfunction. ICD or pacer leads identified within the right atrium ICD or pacer leads identified within the right ventricle. Color-flow Doppler appearing compatible with an intra-atrial communication comp atible with a small ASD with left to right interatrial shunting. Comment: The previous transthoracic echocardiogram from 06-30-2017 included an ag itated saline contrast study which appeared to be negative for a right to left interatrial sh unt. Ordering Physician: Darelne Del Valle Referring Physician: Huey Wong Performed By: Natty Pemberton RDCS
[2021-03-23] VITALS (18 sets, daily range): BP systolic 112–138; BP diastolic 43–71; PULSE 69–95; RESP 16–20; TEMP 36.6–37.4; O2SAT 94–100
[2021-03-23] MEDS: Imipramine HCl 25 MG Tablet PO ×2 (00:30→21:13)
[2021-03-23 00:38] LABS: Bacteria 0 SEEN /hpf (None Seen); Mucous, Urine 0 SEEN /hpf (<or=2+); Red Blood Cells-Urine 0 SEEN /hpf (0-5); Squamous Epithelial Cells - UA 0 SEEN /hpf (5-10); White Blood Cells 0 SEEN /hpf (0-5)
[2021-03-23] MEDS: 0.9% Normal Saline 1,000 ML 100 ML IV ×3 (00:39→20:02)
[2021-03-23] MEDS: Furosemide 20 MG Tablet PO ×2 (00:39→21:18)
[2021-03-23 00:44] LABS: Color, Urine Yellow (Yellow); Glucose, Dipstick Normal (Normal); Ketone-Dipstick Negative (Negative); Leukocyte Esterase-Dipstick Negative /ul (Negative); Nitrite-Dipstick Negative (Negative); Occult Blood-Urine 10 /ul (Negative); Protein-Dipstick Negative (Negative); Specific Gravity, Urine 1.015 (1.002-1.030); Urine Bilirubin Dipstick Negative (Negative); Urine Clarity Clear (Clear); Urine Urobilinogen Normal (Normal)
[2021-03-23 00:46] LABS: Bedside Glucose 108 mg/dL (70-110)
[2021-03-23 00:52] LABS: Hyaline Cast 0-5 SEEN /lpf (0-5)
[2021-03-23] MEDS: Nystatin Powder 15gm Bottle 1 APPLIC TOPICAL ×3 (04:24→21:15)
[2021-03-23 06:24] LABS: Absolute Lymphocyte Count 0.77 X10^3/uL (0.83-4.51); Absolute Neutrophil Count 8.5 X10^3/uL (2.0-7.7); Basophil# 0.04 X10^3/uL; Basophil% 0.4 % (0-1); Eosinophil# 0.22 X10^3/uL; Eosinophils% 2.2 % (0-5); Hematocrit 27.9 % (37-47); Hemoglobin 8.7 g/dL (12.0-15.0); Lymphocyte # 0.77 X10^3/ul (0.83-4.51); Lymphocyte % 7.6 % (19-41); Mean Corp Hgb Conc 31.2 g/dL (32-36); Mean Corpuscular Hgb 28.7 pg (27.0-32.0); Mean Corpuscular Volume 92.1 fL (81-99); Mean Platelet Vol. 11.5 fl (6.2-12.0); Monocyte# 0.53 X10^3/uL; Monocyte% 5.2 % (0-10); NRBC Flagged by Analyzer 0 % (0-5); Neutrophil # 8.53 X10^3/uL (2.7-7.7); Neutrophil % 84.2 % (47-70); Platelet Count 140 K/mm3 (150-450); RBC Distribution Width CV 17.2 % (11.6-14.6); RBC Distribution Width SD 58.4 fl (35.1-43.9); Red Blood Count 3.03 M/mm3 (4.2-5.4); White Blood Count 10.1 K/mm3 (4.4-11.0)
[2021-03-23 06:56] LABS: ALB/GLOB Ratio 0.6 RATIO (0.9-2.4); AST(SGOT) 25 U/L (15-37); Alanine Aminotransfer ALT/SGPT 19 U/L (13-56); Albumin, Serum 2.5 g/dL (3.2-5.0); Alkaline Phosphatase 96 U/L (45-117); Anion Gap 5 (5-15); BUN 54 mg/dL (7-18); BUN/Creat Ratio 28.7 RATIO (10-20); Calcium,Total 8.7 mg/dL (8.5-10.1); Chloride 111 mmol/L (98-107); Creatinine, Serum 1.88 mg/dL (0.55-1.02); EST Glomerular Filtration Rate 27 mL/min (>60); Est Glom Filt Rate - Afr Amer 33 mL/min (>60); Estimated Creatinine Clearance 21.97 ml/min; Glucose 98 mg/dL (74-106); Potassium 4.3 mmol/L (3.5-5.1); Protein, Total 6.5 g/dL (6.4-8.2); Sodium Level 141 mmol/L (136-145); Thyroid Stim Hormone (TSH) 1.25 uIU/mL (0.358-3.74)
[2021-03-23 07:03] LABS: International Normalized Ratio 4.4; Prothrombin Time (Protime)PT. 41.4 SECONDS (11.7-14.9)
[2021-03-23 08:21] LABS: Bedside Glucose 78 mg/dL (70-110)
[2021-03-23 09:36] LABS: Hemoglobin A1c 5.7 % (3.8-5.6)
--- NOTE | 2021-03-23 10:24 | PCM.CONS.C ---
Assessment & Plan Assessment/Plan (1) Atherosclerotic heart disease of [place] coronary artery without angina pectoris: QUALIFIERS: [place] vs. transplanted heart: unspecified whether [place] or transplanted heart Qualified Code(s): I25.10 - Atherosclerotic heart disease of [place] coronary artery without angina pectoris PLAN: The patient has a history of CAD. The details are unknown. She has reportedly undergone previous PCI and CABG. Again the details are unknown. At the present time she does not appear to have ongoing issues of classic angina pectoris. It appears she has been on medical management which has included therapy such as aspirin, nitrates, beta-blockers, OCTAVIANO inhibitor's, lipid-lowering agents, as well as her anticoagulant therapy. (2) S/P PTCA (percutaneous transluminal coronary angioplasty): PLAN: Again, per the medical record, the patient appears to have a history of PCI. The details are unknown. (3) S/P CABG (coronary artery bypass graft): PLAN: The patient appears to have a history of CABG. The details are unknown. (4) S/P AVR (aortic valve replacement): PLAN: The patient does have a history of aortic valve replacement. Her previous echocardiogram is as noted. A preoperative echocardiogram is pending at this time. 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 She does not appear to have any acute symptoms at this time. She can continue medical therapy. An echocardiogram has been requested to assist with her preoperative assessment. (6) A-fib: PLAN: The patient appears to be remaining in atrial fibrillation. It appears she is on rate control therapy and anticoagulant therapy. (7) Presence of cardiac pacemaker: PLAN: The has a permanent pacemaker. It has been followed by her load checker in [place], [place]. To the best of her knowledge it has been functioning appropriately. (8) S/P AAA (abdominal aortic aneurysm) repair: PLAN: The patient reportedly has a history of AAA repair. Again the details are unknown. (9) Lymphedema of both lower extremities: PLAN: The patient has history of chronic lower extremity edema. Per the medical records it appears this is related to chronic lymphedema. (10) HLD (hyperlipidemia): PLAN: The patient has been on lipid-lowering therapy with a statin. (11) HTN (hypertension): PLAN: The patient's blood pressure can be followed with her medicines adjusted accordingly. (12) Diabetes mellitus: PLAN: The patient will continue evaluation care per internal medicine (13) History of DVT (deep vein thrombosis): PLAN: The patient has a history of DVT. She has been on anticoagulant therapy. (14) Closed left hip fracture: QUALIFIERS: Encounter type: initial encounter Qualified Code(s): S72.002A - Fracture of unspecified part of neck of left femur, initial encounter for closed fracture PLAN: The patient has a left hip fracture. She is in need of ORIF. At the present time from a cardiovascular standpoint she appears without any acute cardiovascular symptoms. She will continue to be monitored as deemed appropriate. An echocardiogram is pending to further assess her cardiovascular status. Barring unforeseen changes in her clinical course or findings on her objective studies she will proceed with her left hip ORIF therapy. She will need close monitoring of her cardiac rate, rhythm, and blood pressure during and following her procedure. An attempt should be made to avoid significant fluctuations in her vital signs as well as her volume status during and following her procedure. Her H&H should be followed for any worsening anemia that would require PRBC transfusions. She will also need to have her anticoagulation therapy temporarily interrupted for her procedure and resumed as soon as possible following her procedure. Addt'l Comments The patient's case has been discussed and reviewed with Dr. Giron. This note was generated using a voice recognition system and there may be incorrect words, spelling or punctuation that were not noted when reviewing the office note prior to saving. HPI Consult Data Date of Consult: 03/23/21 HPI Narrative HPI Narrative: MAY POPE, is a 80 year old white female who presents for cardiovascular consultation based upon the need for preoperative cardiovascular assessment for left hip fracture requiring left hip ORIF with, according to the medical record, previous cardiovascular history of underlying CAD, PCI, CABG, valvular heart disease status post AVR, chronic diastolic mediated CHF, atrial fibrillation, permanent pacemaker placement, abdominal aortic aneurysm status post repair, bilateral lower extremity chronic lymphedema, chronic renal insufficiency, chronic anemia, hyperlipidemia, hypertension, diabetes mellitus, history of thromboembolic disease with DVT, now status post mechanical fall with left hip fracture requiring left hip ORIF. The patient does not recall having any ongoing symptoms of chest discomfort or difficulty breathing or obvious palpitations or near syncope or syncope. She reportedly experienced a mechanical fall and a subsequent finding of left hip pain requiring emergency department evaluation with a finding of a left hip fracture now requiring left hip ORIF. She has undergone laboratory evaluation. She was found to be anemic with a hemoglobin of 10.1 which is now dropped to 8.7. She is also noted to have chronic renal insufficiency with an elevated creatinine level of 1.88. Her INR on admission was reported at 3.9 with a subsequent repeat level 4.4. Her ECG demonstrated atrial fibrillation, a septal AR of indeterminate age cannot be excluded, and nonspecific ST/T wave abnormality. Her chest x-ray is as noted below. She did have a previous transthoracic echocardiogram at [facility] on 06-30-2017. The findings are as noted below. [facility] Medical History (Updated 03/23/21 @ 11:[address] Michael Jameson MD) A-fib CHF (congestive heart failure) CHF (congestive heart failure) Diabetes type 2, controlled DVT (deep venous thrombosis) Former smoker HTN (hypertension) Hyperlipidemia Hypertension Peripheral vascular disease Presence of cardiac pacemaker Presence of cardiac pacemaker Presence of prosthetic heart valve Venous (peripheral) insufficiency Home Medications allopurinol 100 mg PO DAILY 05/02/16 [History Last Taken Unknown] aspirin 81 mg PO DAILY 05/02/16 [History Last Taken Unknown] nitroglycerin 0.4 mg SUBLINGUAL Q5M PRN 05/02/16 [History Last Taken Unknown] quinapril [Accupril] 10 mg PO DAILY 06/30/17 [History Last Taken Unknown] atorvastatin 80 mg PO DAILY 08/28/20 [History Last Taken 1 Day Ago ~08/27/20 80 mg] ferrous sulfate 325 mg PO DAILY 08/28/20 [History Last Taken Unknown] furosemide 20 mg PO BID 08/28/20 [History Last Taken Unknown] isosorbide mononitrate 30 mg PO DAILY 08/28/20 [History Last Taken Unknown] metoprolol succinate 25 mg PO DAILY 08/28/20 [History Last Taken Unknown] warfarin 3 mg PO TUTHSA 08/28/20 [History Last Taken Unknown] imipramine HCl [Tofranil] 25 mg PO QHS 11/02/20 [History Last Taken Unknown] Mineral Oil/Petrolatum,White [Eucerin] 1 applic TOPICAL 0600,2200 03/22/21 [History Last Taken Unknown] lorazepam 0.5 - 1 mg PO BID PRN 03/22/21 [History Last Taken Unknown] warfarin 4.5 mg PO QMWF 03/22/21 [History Last Taken Unknown] fluoxetine 10 mg PO DAILY 03/23/21 [History Last Taken Unknown] Allergy/AdvReac Type Severity Reaction Status Date / Time duloxetine [From Cymbalta] Allergy Other Verified 03/22/21 17:58 Penicillins Allergy Hives Verified 03/22/21 17:58 terbutaline [From Brethine] Allergy Shortness Verified 03/22/21 17:58 of breath tolmetin AdvReac Unknown Verified 03/22/21 17:58 Family History (Updated 03/23/21 @ 05:[address] Darlene Del Valle MD) Mother Cancer Diabetes Heart disease Hypertension Father Cancer Diabetes Surgical History (Updated 03/23/21 @ 11:[address] Michael Jameson MD) History of hysterectomy Hx of heart artery stent S/P AAA (abdominal aortic aneurysm) repair S/P AAA (abdominal aortic aneurysm) repair S/P AVR (aortic valve replacement) S/P AVR (aortic valve replacement) S/P CABG (coronary artery bypass graft) S/P CABG x 2 S/P placement of cardiac pacemaker S/P PTCA (percutaneous transluminal coronary angioplasty) Social History (Updated 03/23/21 @ 05:[address] Darlene Del Valle MD) household members: other details: Living alone, spouse 09/2020. Smoking Status: Former smoker alcohol intake: never substance use type: does not use ROS Constitutional Constitutional: Reports as per HPI Eyes Eyes: Reports as per HPI ENT HEENT: Reports as per HPI Cardiovascular Cardiovascular: Reports systems reviewed and no addt'l complaints, except as documented Respiratory/Chest Respiratory/Chest: Reports systems reviewed and no addt'l complaints, except as documented Gastrointestinal Gastrointestinal: Reports as per HPI Musculoskeletal Musculoskeletal: Reports joint pain Neurologic Neurologic: Reports as per HPI Physical Exam Const alert and no apparent distress Orientation / Consciousness: awake HEENT normocephalic and head/scalp atraumatic Eyes PERRL, EOMs intact bilaterally and conjunctivae normal Neck no JVD Chest Chest: midline sternotomy incision Resp clear to auscultation bilaterally Cardio Rhythm: abnormal rhythm irregularly irregular Heart Sounds: S1 normal and prosthetic sounds crisp prosthetic S2 GI normal to inspection, nondistended, normoactive bowel sounds Extremity Extremity Narrative: Left hip pain General Extremity: edema bilateral lower extremity Neuro no focal motor deficits and no sensory deficits noted Psych cooperative Procedure Criteria Type of Procedure Procedure Type: Elective Elective Risks - COVID COVID Risk Discussion: The surgeon/proceduralist and patient have discussed in detail the risk of exposure to and/or potential harm posed by the COVID-19 virus with having a surgery/procedure at this time versus the risk of delaying the surgery/procedure. It is not possible to know either the risk of delaying the surgery or procedure or chance of getting an infection with perfect accuracy, but a joint decision was made between the patient and the surgeon/proceduralist to proceed at this time with the scheduled surgery/procedure as indicated on the consent form. Objective Data Vital Signs: Vital Signs Temp Pulse Resp BP Pulse Ox 97.9 F 73 16 138/64 H 98 03/23/21 04:35 03/23/21 06:00 03/23/21 04:35 03/23/21 04:35 03/23/21 07:59 Oxygen Flow Rate (L/min) 2 Oxygen Delivery Method Nasal Cannula Weight: 171 lb 1.259 oz Body Mass Index (BMI) 27.6 Intake & Output: Intake and Output for Last 24 Hours 03/21/21 03/22/21 03/23/21 23:59 23:59 23:59 Intake Total 1945.84 / 1945.84 Output Total 300 / 300 Balance 1645.84 / 1645.84 Lab / Micro Data Result Diagrams: 03/23/21 05:15 03/23/21 05:15 Labs: Laboratory Results - last 24 hr 03/22/21 19:15: WBC 7.9, RBC 3.60 L, Hgb 10.1 L, Hct 32.2 L, MCV 89.4, MCH 28.1, MCHC 31.4 L, RDW Std Deviation 56.5 H, RDW Coeff of [place] 17.2 H, Plt Count 154, MPV 11.3, Immature Gran % (Auto) 0.600, Neut % (Auto) 74.7 H, Lymph % (Auto) 14.5 L, [place] % (Auto) 5.3, Eos % (Auto) 4.5, Baso % (Auto) 0.4, Absolute Neuts (auto) 5.9, Absolute Lymphs (auto) 1.15, Nucleated RBC % 0 03/22/21 19:15: PT 37.3 H, INR 3.9 03/22/21 19:15: Sodium 139, Potassium 4.3, Chloride 108 H, Carbon Dioxide 25.0, Anion Gap 6, BUN 57 H, Creatinine 1.93 H, Estim Creat Clear Calc 21.40, Est GFR (MDRD) Af Amer 32 L, Est GFR (MDRD) Non-Af 26 L, BUN/Creatinine Ratio 29.5 H, Glucose 106, Calcium 9.6, Troponin I High Sens 17 03/22/21 19:15: Magnesium 2.3 03/22/21 19:15: B-Natriuretic Peptide 177.3 H 03/23/21 00:01: POC Glucose 108 03/23/21 00:10: Urine Color Yellow, Urine Clarity Clear, Urine pH 5.0, Ur Specific [place] 1.015, Urine Protein Negative, Urine Glucose (UA) Normal, Urine Ketones Negative, Urine Occult Blood 10 H, Urine Nitrite Negative, Urine Bilirubin Negative, Urine Urobilinogen Normal, Ur Leukocyte Esterase Negative, Urine RBC 0 SEEN, Urine WBC 0 SEEN, Ur Squamous Epith Cells 0 SEEN, Urine Bacteria 0 SEEN, Hyaline Casts 0-5 SEEN, Urine Mucus 0 SEEN 03/23/21 05:15: Blood Type A POSITIVE, Antibody Screen NEGATIVE 03/23/21 05:15: WBC 10.1, RBC 3.03 L, Hgb 8.7 L, Hct 27.9 L, MCV 92.1, MCH 28.7, MCHC 31.2 L, RDW Std Deviation 58.4 H, RDW Coeff of [place] 17.2 H, Plt Count 140 L, MPV 11.5, Immature Gran % (Auto) 0.400, Neut % (Auto) 84.2 H, Lymph % (Auto) 7.6 L, [place] % (Auto) 5.2, Eos % (Auto) 2.2, Baso % (Auto) 0.4, Absolute Neuts (auto) 8.5 H, Absolute Lymphs (auto) 0.77 L, Nucleated RBC % 0 03/23/21 05:15: PT 41.4 H, INR 4.4 H* 03/23/21 05:15: Sodium 141, Potassium 4.3, Chloride 111 H, Carbon Dioxide 25.0, Anion Gap 5, BUN 54 H, Creatinine 1.88 H, Estim Creat Clear Calc 21.97, Est GFR (MDRD) Af Amer 33 L, Est GFR (MDRD) Non-Af 27 L, BUN/Creatinine Ratio 28.7 H, Glucose 98, Calcium 8.7, Total Bilirubin 0.50, AST 25, ALT 19, Alkaline Phosphatase 96, Total Protein 6.5, Albumin 2.5 L, Globulin 4.0, Albumin/Globulin Ratio 0.6 L, TSH 1.25 03/23/21 05:15: Hemoglobin A1c 5.7 H 03/23/21 08:08: POC Glucose 78 Micro: Microbiology 03/22/21 19:27 Nasal Secretion SARS-CoV-2 Antigen (Rapid) - Final Cardiology Labs/Tests 03/22/21 19:15: WBC 7.9, RBC 3.60 L, Hgb 10.1 L, Hct 32.2 L, MCV 89.4, MCH 28.1, MCHC 31.4 L, Plt Count 154, MPV 11.3, Immature Gran % (Auto) 0.600, Neut % (Auto) 74.7 H, Lymph % (Auto) 14.5 L, [place] % (Auto) 5.3, Eos % (Auto) 4.5, Baso % (Auto) 0.4, Absolute Neuts (auto) 5.9, Nucleated RBC % 0 03/22/21 19:15: PT 37.3 H, INR 3.9 03/22/21 19:15: Sodium 139, Potassium 4.3, Chloride 108 H, Carbon Dioxide 25.0, Anion Gap 6, BUN 57 H, Creatinine 1.93 H, Est GFR (MDRD) Af Amer 32 L, Est GFR (MDRD) Non-Af 26 L, BUN/Creatinine Ratio 29.5 H, Glucose 106, Calcium 9.6 03/22/21 19:15: Magnesium 2.3 03/22/21 19:15: B-Natriuretic Peptide 177.3 H 03/23/21 00:10: Urine Color Yellow, Urine Clarity Clear, Urine pH 5.0, Ur Specific [place] 1.015, Urine Protein Negative, Urine Glucose (UA) Normal, Urine Ketones Negative, Urine Occult Blood 10 H, Urine Nitrite Negative, Urine Bilirubin Negative, Urine Urobilinogen Normal, Ur Leukocyte Esterase Negative, Urine RBC 0 SEEN, Urine WBC 0 SEEN 03/23/21 05:15: WBC 10.1, RBC 3.03 L, Hgb 8.7 L, Hct 27.9 L, MCV 92.1, MCH 28.7, MCHC 31.2 L, Plt Count 140 L, MPV 11.5, Immature Gran % (Auto) 0.400, Neut % (Auto) 84.2 H, Lymph % (Auto) 7.6 L, [place] % (Auto) 5.2, Eos % (Auto) 2.2, Baso % (Auto) 0.4, Absolute Neuts (auto) 8.5 H, Nucleated RBC % 0 03/23/21 05:15: PT 41.4 H, INR 4.4 H* 03/23/21 05:15: Sodium 141, Potassium 4.3, Chloride 111 H, Carbon Dioxide 25.0, Anion Gap 5, BUN 54 H, Creatinine 1.88 H, Est GFR (MDRD) Af Amer 33 L, Est GFR (MDRD) Non-Af 27 L, BUN/Creatinine Ratio 28.7 H, Glucose 98, Calcium 8.7, Total Bilirubin 0.50 03/23/21 05:15: Hemoglobin A1c 5.7 H Rhythm: Atrial fibrillation EKG: As noted above ECHO: 06-30-2017 Impression: Normal LV size Mild concentric left ventricular perjury The estimated ejection fraction is 50% Mild tricuspid valve insufficiency Pulmonary artery systolic pressure is [address] Scan: Radiography Diagnostic Testing: Radiology Impression Brain CT 03/22/21 18:00 IMPRESSION: 1. No acute findings. 2. Chronic right cerebellar lacunar infarct. 3. Microvascular ischemia. Atrophy. Electronically Signed: Sheila Wong MD at 19:57 EDT Tel , Service support , Chest X-Ray 03/22/21 18:00 IMPRESSION: Normal x-ray examination of the chest. Electronically Signed: Sheila Wong MD at 20:34 EDT Tel , Service support , Hip/Pelvis X-Ray 03/22/21 18:02 IMPRESSION: Acute intertrochanteric fracture of the left femur. Electronically Signed: Sheila Wong MD at 20:38 EDT Tel , Service support ,
--- NOTE | 2021-03-23 11:24 | CON.PCM_ITS ---
Assessment & Plan Assessment/Plan (1) HTN (hypertension): PLAN: Managed by medicine service (2) HLD (hyperlipidemia): PLAN: Managed by medicine service (3) S/P AAA (abdominal aortic aneurysm) repair: PLAN: Managed by medicine service (4) Presence of cardiac pacemaker: PLAN: Managed by medicine service (5) CHF (congestive heart failure): PLAN: Managed by medicine service (6) S/P AVR (aortic valve replacement): PLAN: Managed by medicine service (7) S/P PTCA (percutaneous transluminal coronary angioplasty): PLAN: Managed by medicine service (8) S/P CABG (coronary artery bypass graft): PLAN: Managed by medicine service (9) Closed left hip fracture: QUALIFIERS: Encounter type: initial encounter Qualified Code(s): S72.002A - Fracture of unspecified part of neck of left femur, initial encounter for closed fracture PLAN: Left hip intertrochanteric fracture displaced unstable,?history of the disease process and treatment options were discussed with the patient. Continue to attempt to get a hold of the family I do have my contact information. At this time patient has significant medical comorbidities that would put her at significant risk. She also has severely high INR which is not reversed. We will attempt to reverse that over the next 24 hours in order to proceed with surgery. Surgical intervention was discussed the patient as well as nonoperative treatment. We elected to proceed with a cephalomedullary nail. Risks and benefits of the procedure were discussed the patient including but not limited to blood loss, DVTs, PEs, neurovascular image, infection, the risk of anesthesia including loss of life. Patient demonstrates an understanding. She will remain on bedrest. We are holding Coumadin and will plan to reverse INR over the next 24 hours. Plan is for surgery tomorrow morning. Patient will be made n.p.o. after midnight she will be allowed to eat today. 2 g of Ancef will be ordered on-call to the operating room. We will need to contact the daughter prior to obtaining formal consent. (10) Peripheral edema: PLAN: Managed by medicine service (11) Atherosclerotic heart disease of [place] coronary artery without angina pectoris: QUALIFIERS: [place] vs. transplanted heart: unspecified whether [place] or transplanted heart Qualified Code(s): I25.10 - Atherosclerotic heart disease of [place] coronary artery without angina pectoris PLAN: Managed by medicine service (12) Ulcer, venous stasis, left: PLAN: Managed by medicine service (13) Lymphedema of both lower extremities: PLAN: Managed by medicine service (14) Venous hypertension, chronic, with inflammation: QUALIFIERS: Laterality: bilateral PLAN: Managed by medicine service (15) History of DVT (deep vein thrombosis): (16) Leg swelling: PLAN: Managed by medicine service (17) Postphlebetic syndrome with inflammation: (18) Osteoarthritis: (19) Venous stasis dermatitis: PLAN: Managed by medicine service (20) A-fib: PLAN: On Coumadin, INR currently 4.4. Determining cardiac status before aggressive reversal. (21) Shortness of breath: PLAN: Managed by medicine service (22) Acute on chronic diastolic heart failure: PLAN: Managed by medicine service (23) Coronary artery disease: PLAN: Managed by medicine service (24) Diabetes mellitus: PLAN: Managed by medicine service (25) Lymphedema: PLAN: Managed by medicine service (26) Gout: PLAN: Managed by medicine service (27) Type 2 diabetes mellitus with diabetic polyneuropathy: PLAN: Managed by medicine service (28) Other specified peripheral vascular diseases: PLAN: Managed by medicine service HPI Consult Data Date of Consult: 03/23/21 HPI Narrative HPI Narrative: MAY POPE, is a 80 F who presents With numerous medical comorbidities including chronic renal disease, bilateral lower extremity lymphedema and chronic wounds and significant cardiac comorbidities. I did reach out to the patient's daughter by phone and left my personal number for the call back. I did this because patient does have some level of dementia but she was able to tell me that she lives at home with her daughter. She reports she was taking something outside when she had a mechanical fall in the driveway yesterday. She reports she uses a cane or walker on a regular basis. After she fell she had 10 out of 10 left hip pain improved with bedrest today. Pain is in the left hip and thigh. She does report some paresthesias down to the toes. She has been seen by cardiology who was attempting to obtain more clarity on her cardiac history and medicine is also on board. Her current INR is 4.4 with a hemoglobin of 8.7. [facility] Medical History (Updated 03/23/21 @ 11:[address] Michael Jameson MD) A-fib CHF (congestive heart failure) CHF (congestive heart failure) Diabetes type 2, controlled DVT (deep venous thrombosis) Former smoker HTN (hypertension) Hyperlipidemia Hypertension Peripheral vascular disease Presence of cardiac pacemaker Presence of cardiac pacemaker Presence of prosthetic heart valve Venous (peripheral) insufficiency Home Medications allopurinol 100 mg PO DAILY 05/02/16 [History Last Taken Unknown] aspirin 81 mg PO DAILY 05/02/16 [History Last Taken Unknown] nitroglycerin 0.4 mg SUBLINGUAL Q5M PRN 05/02/16 [History Last Taken Unknown] quinapril [Accupril] 10 mg PO DAILY 06/30/17 [History Last Taken Unknown] atorvastatin 80 mg PO DAILY 08/28/20 [History Last Taken 1 Day Ago ~08/27/20 80 mg] ferrous sulfate 325 mg PO DAILY 08/28/20 [History Last Taken Unknown] furosemide 20 mg PO BID 08/28/20 [History Last Taken Unknown] isosorbide mononitrate 30 mg PO DAILY 08/28/20 [History Last Taken Unknown] metoprolol succinate 25 mg PO DAILY 08/28/20 [History Last Taken Unknown] warfarin 3 mg PO TUTHSA 08/28/20 [History Last Taken Unknown] imipramine HCl [Tofranil] 25 mg PO QHS 11/02/20 [History Last Taken Unknown] Mineral Oil/Petrolatum,White [Eucerin] 1 applic TOPICAL 0600,2200 03/22/21 [History Last Taken Unknown] lorazepam 0.5 - 1 mg PO BID PRN 03/22/21 [History Last Taken Unknown] warfarin 4.5 mg PO QMWF 03/22/21 [History Last Taken Unknown] fluoxetine 10 mg PO DAILY 03/23/21 [History Last Taken Unknown] Allergy/AdvReac Type Severity Reaction Status Date / Time duloxetine [From Cymbalta] Allergy Other Verified 03/22/21 17:58 Penicillins Allergy Hives Verified 03/22/21 17:58 terbutaline [From Brethine] Allergy Shortness Verified 03/22/21 17:58 of breath tolmetin AdvReac Unknown Verified 03/22/21 17:58 Family History (Updated 03/23/21 @ 05:[address] Darlene Del Valle MD) Mother Cancer Diabetes Heart disease Hypertension Father Cancer Diabetes Surgical History (Updated 03/23/21 @ 11:[address] Michael Jameson MD) History of hysterectomy Hx of heart artery stent S/P AAA (abdominal aortic aneurysm) repair S/P AAA (abdominal aortic aneurysm) repair S/P AVR (aortic valve replacement) S/P AVR (aortic valve replacement) S/P CABG (coronary artery bypass graft) S/P CABG x 2 S/P placement of cardiac pacemaker S/P PTCA (percutaneous transluminal coronary angioplasty) Social History (Updated 03/23/21 @ 11:[address] Omar Antoine MD) household members: other details: Reports to be living with daughter, spouse 09/2020. Smoking Status: Former smoker alcohol intake: never substance use type: does not use ROS Review of Systems ROS Unobtainable: due to mental condition Physical Exam Narrative Answers questions appropriately. Moderately confused. Const Constitutional Narrative: Apparent distress. HEENT normocephalic Eyes PERRL Neck no JVD Resp normal respiratory effort Cardio regular rate Extremity Extremity Narrative: Left lower extremity: Skin clean, dry, and intact. Limb is shortened and externally rotated Motor is intact dorsiflexion, EHL and plantar flexion. Sensation is intact to light touch saphenous, harika,l superficial peroneal, deep peroneal and tibial distributions. Calves are soft and supple. Skin Skin Narrative: Patient has chronic ulceration on bilateral lower extremities. There is a medial leg eschar and anterior thigh eschar on the left. There is a medial mid leg eschar on the right with some [place]. Lab / Micro Data Result Diagrams: 03/23/21 05:15 03/23/21 05:15 Labs: Laboratory Results - last 24 hr 03/22/21 19:15: WBC 7.9, RBC 3.60 L, Hgb 10.1 L, Hct 32.2 L, MCV 89.4, MCH 28.1, MCHC 31.4 L, RDW Std Deviation 56.5 H, RDW Coeff of [place] 17.2 H, Plt Count 154, MPV 11.3, Immature Gran % (Auto) 0.600, Neut % (Auto) 74.7 H, Lymph % (Auto) 14.5 L, [place] % (Auto) 5.3, Eos % (Auto) 4.5, Baso % (Auto) 0.4, Absolute Neuts (auto) 5.9, Absolute Lymphs (auto) 1.15, Nucleated RBC % 0 03/22/21 19:15: PT 37.3 H, INR 3.9 03/22/21 19:15: Sodium 139, Potassium 4.3, Chloride 108 H, Carbon Dioxide 25.0, Anion Gap 6, BUN 57 H, Creatinine 1.93 H, Estim Creat Clear Calc 21.40, Est GFR (MDRD) Af Amer 32 L, Est GFR (MDRD) Non-Af 26 L, BUN/Creatinine Ratio 29.5 H, Glucose 106, Calcium 9.6, Troponin I High Sens 17 03/22/21 19:15: Magnesium 2.3 03/22/21 19:15: B-Natriuretic Peptide 177.3 H 03/23/21 00:01: POC Glucose 108 03/23/21 00:10: Urine Color Yellow, Urine Clarity Clear, Urine pH 5.0, Ur Specific [place] 1.015, Urine Protein Negative, Urine Glucose (UA) Normal, Urine Ketones Negative, Urine Occult Blood 10 H, Urine Nitrite Negative, Urine Bilirubin Negative, Urine Urobilinogen Normal, Ur Leukocyte Esterase Negative, Urine RBC 0 SEEN, Urine WBC 0 SEEN, Ur Squamous Epith Cells 0 SEEN, Urine Bacteria 0 SEEN, Hyaline Casts 0-5 SEEN, Urine Mucus 0 SEEN 03/23/21 05:15: Blood Type A POSITIVE, Antibody Screen NEGATIVE 03/23/21 05:15: WBC 10.1, RBC 3.03 L, Hgb 8.7 L, Hct 27.9 L, MCV 92.1, MCH 28.7, MCHC 31.2 L, RDW Std Deviation 58.4 H, RDW Coeff of [place] 17.2 H, Plt Count 140 L, MPV 11.5, Immature Gran % (Auto) 0.400, Neut % (Auto) 84.2 H, Lymph % (Auto) 7.6 L, [place] % (Auto) 5.2, Eos % (Auto) 2.2, Baso % (Auto) 0.4, Absolute Neuts (auto) 8.5 H, Absolute Lymphs (auto) 0.77 L, Nucleated RBC % 0 03/23/21 05:15: PT 41.4 H, INR 4.4 H* 03/23/21 05:15: Sodium 141, Potassium 4.3, Chloride 111 H, Carbon Dioxide 25.0, Anion Gap 5, BUN 54 H, Creatinine 1.88 H, Estim Creat Clear Calc 21.97, Est GFR (MDRD) Af Amer 33 L, Est GFR (MDRD) Non-Af 27 L, BUN/Creatinine Ratio 28.7 H, Glucose 98, Calcium 8.7, Total Bilirubin 0.50, AST 25, ALT 19, Alkaline Phosphatase 96, Total Protein 6.5, Albumin 2.5 L, Globulin 4.0, Albumin/Globulin Ratio 0.6 L, TSH 1.25 03/23/21 05:15: Hemoglobin A1c 5.7 H 03/23/21 08:08: POC Glucose 78 Micro: Microbiology 03/22/21 19:27 Nasal Secretion SARS-CoV-2 Antigen (Rapid) - Final Radiology Impression Brain CT 03/22/21 18:00 IMPRESSION: 1. No acute findings. 2. Chronic right cerebellar lacunar infarct. 3. Microvascular ischemia. Atrophy. Electronically Signed: Sheila Wong MD at 19:57 EDT Tel , Service support , Chest X-Ray 03/22/21 18:00 IMPRESSION: Normal x-ray examination of the chest. Electronically Signed: Sheila Wong MD at 20:34 EDT Tel , Service support , Hip/Pelvis X-Ray 03/22/21 18:02 IMPRESSION: Acute intertrochanteric fracture of the left femur. Electronically Signed: Sheila Wong MD at 20:38 EDT Tel , Service support ,
[2021-03-23 11:51] LABS: Bedside Glucose 73 mg/dL (70-110)
--- NOTE | 2021-03-23 12:49 | CASEMGMT ---
MIKAYLA Note Referral Source: [facility] HARRELL Reason for Referral: Assessment SW met with patient. Patient was able to recall her name. She said that she lives in a house in [place] with her daughter, Aixa. Patient said that she feels safe at the home most of the time when asked for clarification she said the neighbors are cluttered but voiced that she feels safe in the house. Patient reports drinking 2 beers a day. Patient reports her bedroom is upstairs but she normally sleeps in a chair on the first floor. Per patient she uses [facility] in [place] for pharmacy. Patient is not a current smoker. Patient said that she was previously in a SNF in [place] but could not recall the name. Patient said that she is feeling fuzzy thus social sciences research scientist requested permission to speak to her daughter, Aixa to complete the assessment. Patient gave verbal consent to speak to her daughter, Aixa. SW left voice mail message for patient's daughter, Axia. Plan: Continue assessment with daughter. Kasia HAWKINS
[2021-03-23] MEDS: Allopurinol 100 MG Tablet PO (13:52)
[2021-03-23] MEDS: Isosorbide Mononitrate 30 MG Tablet PO (13:52)
[2021-03-23] MEDS: Pantoprazole Sodium 40 MG Tablet PO (13:52)
[2021-03-23] MEDS: Ferrous Sulfate 325 MG Tablet PO (13:52)
[2021-03-23] MEDS: Polyethylene Glycol 3350 17 GM PACKET PO (13:52)
[2021-03-23] MEDS: oxyCODONE 5 MG Tablet PO (13:52)
[2021-03-23] MEDS: Furosemide 40 MG Tablet PO (13:52)
[2021-03-23] MEDS: Lisinopril 10 MG Tablet PO (13:52)
[2021-03-23] MEDS: Aspirin 81 MG TAB.CHEW PO (13:52)
[2021-03-23] MEDS: Metoprolol(XL)Succ 25 MG Tablet PO (13:53)
[2021-03-23] MEDS: Glucerna Shake 120 ML LIQUID PO ×3 (13:59→21:18)
--- NOTE | 2021-03-23 14:00 | NURSING ---
medication late due to pt NPO for possible surgery. Pt requested to wait on PO medication until able to eat.
--- NOTE | 2021-03-23 16:56 | PN.HOSP_ITS ---
Subjective Subjective Patient was seen and examined today, I talked to orthopedic surgery about her care as well as cardiology today. I also talked briefly with her daughter by phone today and I talked with a shipyard supervisor from the heart group in [place] that was covering for her shipyard supervisor Dr. Castano, I confirmed the patient had a [facility] anical heart valve. Patient's INR this morning was 4.4. Objective Data Objective Data Vital Signs: Vital Signs Temp Pulse Resp BP Pulse Ox 98.0 F 77 18 134/71 H 98 03/23/21 14:00 03/23/21 14:21 03/23/21 14:00 03/23/21 14:00 03/23/21 14:00 Oxygen Flow Rate (L/min) 2 Oxygen Delivery Method Nasal Cannula Weight: 77.6 kg Body Mass Index (BMI) 27.6 Intake & Output: Intake and Output for Last 24 Hours 03/21/21 03/22/21 03/23/21 23:59 23:59 23:59 Intake Total 1995.84 / 1995.84 Output Total 300 / 300 Balance 1696.84 / 1696.84 Lab / Micro Data Result Diagrams: 03/23/21 05:15 03/23/21 05:15 Labs: Laboratory Results - last 24 hr 03/22/21 19:15: WBC 7.9, RBC 3.60 L, Hgb 10.1 L, Hct 32.2 L, MCV 89.4, MCH 28.1, MCHC 31.4 L, RDW Std Deviation 56.5 H, RDW Coeff of [place] 17.2 H, Plt Count 154, MPV 11.3, Immature Gran % (Auto) 0.600, Neut % (Auto) 74.7 H, Lymph % (Auto) 14.5 L, [place] % (Auto) 5.3, Eos % (Auto) 4.5, Baso % (Auto) 0.4, Absolute Neuts (auto) 5.9, Absolute Lymphs (auto) 1.15, Nucleated RBC % 0 03/22/21 19:15: PT 37.3 H, INR 3.9 03/22/21 19:15: Sodium 139, Potassium 4.3, Chloride 108 H, Carbon Dioxide 25.0, Anion Gap 6, BUN 57 H, Creatinine 1.93 H, Estim Creat Clear Calc 21.40, Est GFR (MDRD) Af Amer 32 L, Est GFR (MDRD) Non-Af 26 L, BUN/Creatinine Ratio 29.5 H, Glucose 106, Calcium 9.6, Troponin I High Sens 17 03/22/21 19:15: Magnesium 2.3 03/22/21 19:15: B-Natriuretic Peptide 177.3 H 03/23/21 00:01: POC Glucose 108 03/23/21 00:10: Urine Color Yellow, Urine Clarity Clear, Urine pH 5.0, Ur Specific [place] 1.015, Urine Protein Negative, Urine Glucose (UA) Normal, Urine Ketones Negative, Urine Occult Blood 10 H, Urine Nitrite Negative, Urine Bilirubin Negative, Urine Urobilinogen Normal, Ur Leukocyte Esterase Negative, Urine RBC 0 SEEN, Urine WBC 0 SEEN, Ur Squamous Epith Cells 0 SEEN, Urine Bacteria 0 SEEN, Hyaline Casts 0-5 SEEN, Urine Mucus 0 SEEN 03/23/21 05:15: Blood Type A POSITIVE, Antibody Screen NEGATIVE 03/23/21 05:15: WBC 10.1, RBC 3.03 L, Hgb 8.7 L, Hct 27.9 L, MCV 92.1, MCH 28.7, MCHC 31.2 L, RDW Std Deviation 58.4 H, RDW Coeff of [place] 17.2 H, Plt Count 140 L, MPV 11.5, Immature Gran % (Auto) 0.400, Neut % (Auto) 84.2 H, Lymph % (Auto) 7.6 L, [place] % (Auto) 5.2, Eos % (Auto) 2.2, Baso % (Auto) 0.4, Absolute Neuts (auto) 8.5 H, Absolute Lymphs (auto) 0.77 L, Nucleated RBC % 0 03/23/21 05:15: PT 41.4 H, INR 4.4 H* 03/23/21 05:15: Sodium 141, Potassium 4.3, Chloride 111 H, Carbon Dioxide 25.0, Anion Gap 5, BUN 54 H, Creatinine 1.88 H, Estim Creat Clear Calc 21.97, Est GFR (MDRD) Af Amer 33 L, Est GFR (MDRD) Non-Af 27 L, BUN/Creatinine Ratio 28.7 H, Glucose 98, Calcium 8.7, Total Bilirubin 0.50, AST 25, ALT 19, Alkaline Phosphatase 96, Total Protein 6.5, Albumin 2.5 L, Globulin 4.0, Albumin/Globulin Ratio 0.6 L, TSH 1.25 03/23/21 05:15: Hemoglobin A1c 5.7 H 03/23/21 08:08: POC Glucose 78 03/23/21 11:44: POC Glucose 73 Micro: Microbiology 03/22/21 19:27 Nasal Secretion SARS-CoV-2 Antigen (Rapid) - Final Radiography Diagnostic Testing: Radiology Impression Brain CT 03/22/21 18:00 IMPRESSION: 1. No acute findings. 2. Chronic right cerebellar lacunar infarct. 3. Microvascular ischemia. Atrophy. Electronically Signed: Sheila Wong MD at 19:57 EDT Tel , Service support , Chest X-Ray 03/22/21 18:00 IMPRESSION: Normal x-ray examination of the chest. Electronically Signed: Sheila Wong MD at 20:34 EDT Tel , Service support , Hip/Pelvis X-Ray 03/22/21 18:02 IMPRESSION: Acute intertrochanteric fracture of the left femur. Electronically Signed: Sheila Wong MD at 20:38 EDT Tel , Service support , Echocardiogram 03/22/21 23:33 Interpretation Summary The study was technically difficult. Left ventricular systolic function is normal. The estimated ejection fraction is 55 %. Apical wall motion abnormality may reflect pacemaker activation. The left atrium is moderately enlarged. The right atrium is mildly enlarged. There is mild mitral annular calcification. Extension of the mitral annular calcification on the base of the posterior mitral valve leaflet. Mild (1+) mitral valve insufficiency. Mild to moderate (1-2+) tricuspid valve insufficiency. Stable appearing mechanical aortic valve apparatus. Trivial transvalvular insufficiency of the aortic valve. Mildly dilated aortic root. Right ventricular systolic pressure estimated to be 47 mmHg. Unable to assess diastolic dysfunction. ICD or pacer leads identified within the right atrium ICD or pacer leads identified within the right ventricle. Color-flow Doppler appearing compatible with an intra-atrial communication compatible with a small ASD with left to right interatrial shunting. Comment: The previous transthoracic echocardiogram from 06-30-2017 included an agitated saline contrast study which appeared to be negative for a right to left interatrial shunt. Ordering Physician: Darlene Del Valle Referring Physician: Huey Wong Performed By: Natty Pemberton RDCS Physical Exam Const alert and no apparent distress General Appearance: cooperative, well kempt and well developed Orientation / Consciousness: awake, oriented to person, oriented to place and oriented to time HEENT normocephalic, head/scalp atraumatic and moist oral mucous membranes Head and Scalp: normocephalic Eyes PERRL, EOMs intact bilaterally and conjunctivae normal Neck nuchal rigidity, supple, no JVD, thyroid normal and no carotid bruits General: trachea midline Resp normal respiratory effort, no retractions, no use of accessory muscles and clear to auscultation bilaterally Auscultation: Negative for rales, rhonchi or wheezes Cardio no murmurs, no rub and no gallops Cardio Narrative: Heart rate and rhythm was irregular, there is mechanical click noted over the patient's left sternal border and apex GI normal to inspection, nondistended, normoactive bowel sounds, soft to palpation, non-tender and non-distended Extremity no clubbing, cyanosis or edema Skin no rashes or lesions noted General Skin Exam: no breakdown Neuro CN's II-XII intact bilaterally, no focal motor deficits and no sensory deficits noted Sensorium / Orientation: awake and alert Speech: speech normal Psych thought process normal Psych Narrative: Patient is alert but confused Assessment & Plan Assessment/Plan (1) Closed left hip fracture: QUALIFIERS: Encounter type: initial encounter Qualified Code(s): S72.002A - Fracture of unspecified part of neck of left femur, initial encounter for closed fracture PLAN: 1. Left hip intertrochanteric fracture secondary to osteoporosis- the plan is for the patient undergo surgical repair tomorrow, I will repeat her INR at 6:00 tonight and then again tomorrow morning at 5 AM. I have typed and crossed for 2 units of fresh frozen plasma which will be given at 630 tomorrow morning. #2 chronic atrial fibrillation #3 vascular dementia #4 cerebrovascular disease #5 anemia secondary to blood loss from left hip fracture-CBC will be rechecked tomorrow #6 essential hypertension #7 hyperlipidemia #8 coronary artery disease-patient's echocardiogram today showed a normal ejection fraction of 55% with mild pulmonary hypertension Charges/Coding Visit Charges Inpatient E&M: 69258 Subs Hosp L2
[2021-03-23 17:21] LABS: Bedside Glucose 74 mg/dL (70-110)
--- NOTE | 2021-03-23 17:37 | CM.ED ---
SW Note Patient Name: Ayesha Avalos Next of Kin: Daughter, Aixa Butler Informant: Daughter Aixa Butler Living Will/ HCPOA : Aixa reports that they have the paperwork and she will bring it into the hospital. PCP: Marvin Specialist: Senior Mobile Web Developer, Dr. Valadez, in [place] Insurance: Medicare A [facility] Insurance: Aixa reports that patient had optimum in past but now they pay out of pocket for medication Name of Pharmacy: [facility] Lives with : daughterKathie Living arrangements: 2 story house Steps: 2 into the house and 10-12 to second floor. Patient has a chair lift to get to the second floor ADLs : Aixa said that she helps patient with all of her ADL's. Aixa said that patient was stand by assist in shower prior to current admission. Employed: Retired Smoke: Patient smokes. She had quit for 32 years and resumed smoking in October. Aixa said that patient resumed smoking indicated that patient's had and I can do what I want. ETOH: Patient had reported she drinks 2 beers a day but daughter said that patient does not drink and never has. Transportation: Aixa provides transportation Current DME: Shower chair, BSC, Raised toilet seat, cane, hospital bed ([facility]), lift chair, chair lift, rails and grab bars, walker, rollator, wheelchair and medical alert. Aixa said that the house is wheelchair accessible. Oxygen: Aixa reports patient does not have oxygen at home Previous SNF: [facility] Plan: Aixa said that patient will go to [facility] for rehab at discharge. Aixa said that her daughter works there and they have already picked out her room.. [address] Services: [facility] and [facility] Consultation who fills patient's med box Plan: [facility] at discharge. Kasia HAWKINS
[2021-03-23 18:47] LABS: International Normalized Ratio 2.1; Prothrombin Time (Protime)PT. 22.5 SECONDS (11.7-14.9)
[2021-03-23] MEDS: Phytonadione (Vit K1) 5 MG TABLET PO (20:02)
[2021-03-23] MEDS: Atorvastatin Calcium 80 MG Tablet PO (21:13)
--- NOTE | 2021-03-23 21:14 | CM.ED ---
MIKAYLA Note MIKAYLA faxed patient's referral packet, without PT/OT notes, to [facility] for their review. Plan: Patient's family requests [facility] for patient. Patient has been there in the past. Kasia HAWKINS
[2021-03-23 21:41] LABS: Bedside Glucose 76 mg/dL (70-110)
--- NOTE | 2021-03-23 22:15 | NURSING ---
Called pt's daughter, Aixa Butler, and advised her that travel information center supervisor said pt was not going to OR at 0730 but would follow a 0730 case. Originally Aixa was going to come in around [address] Antoine before signing consent. Advised Aixa to come around 0730 instead. Pt appreciative of call. Also, travel information center supervisor and PCU charge nurse aware that pt needs pacer check at some point since it did not get completed on day shift.
[2021-03-24] VITALS (18 sets, daily range): BP systolic 111–163; BP diastolic 46–92; PULSE 71–96; RESP 16–20; TEMP 36.6–37.3; O2SAT 92–100
[2021-03-24 06:51] LABS: Bedside Glucose 96 mg/dL (70-110)
[2021-03-24 07:24] LABS: Absolute Neutrophil Count 6.6 X10^3/uL (2.0-7.7); Basophil# 0.01 X10^3/uL; Basophil% 0.1 % (0-1); Eosinophil# 0.51 X10^3/uL; Eosinophils% 6.3 % (0-5); Hematocrit 27.4 % (37-47); Hemoglobin 8.3 g/dL (12.0-15.0); Lymphocyte % 6.1 % (19-41); Mean Corp Hgb Conc 30.3 g/dL (32-36); Mean Corpuscular Hgb 28.3 pg (27.0-32.0); Mean Corpuscular Volume 93.5 fL (81-99); Mean Platelet Vol. 12.4 fl (6.2-12.0); Monocyte# 0.52 X10^3/uL; Monocyte% 6.4 % (0-10); NRBC Flagged by Analyzer 0 % (0-5); Neutrophil # 6.56 X10^3/uL (2.7-7.7); Neutrophil % 80.6 % (47-70); POSITIVE DIFFERENTIAL YES; Platelet Count 129 K/mm3 (150-450); RBC Distribution Width CV 16.9 % (11.6-14.6); Red Blood Count 2.93 M/mm3 (4.2-5.4); White Blood Count 8.1 K/mm3 (4.4-11.0)
[2021-03-24 07:26] LABS: Differential Indicated SCAN CRITERIA MET
--- NOTE | 2021-03-24 07:30 | RAD_ITS ---
STUDY: X-RAY - PELVIS AND LEFT HIP REASON FOR EXAM: Female, 80 years old. Left hip nailing. TECHNIQUE: 5 intraoperative digital documentation views of the pelvis and hip. COMPARISON: Pelvis and hip x-rays dated 03/22/2021. FINDINGS: 5 intraoperative digital documentation views show intramedullary balaji with distal interlocking cancellus screw and dynamic hip screws proximally. RAD/Hip Min 2 Views (Portable) IMPRESSION: Intraoperative digital documentation views as described. Electronically Signed: Ruddy Kaminski MD at 13:38 EDT , Service support ,
[2021-03-24 07:35] LABS: International Normalized Ratio 1.5; Prothrombin Time (Protime)PT. 17.2 SECONDS (11.7-14.9)
--- NOTE | 2021-03-24 08:03 | NURSING ---
Charge Nurse Ab HASSAN able to do pacer interrogation via Enlighted scanner.
[2021-03-24] MEDS: 0.9% Normal Saline 1,000 ML 100 ML IV ×2 (09:01→18:30)
--- NOTE | 2021-03-24 09:03 | NURSING ---
report called to surgery RN.
--- NOTE | 2021-03-24 09:14 | NURSING ---
per pacer rep Mahesh: appears in afib, battery has 1 month of life left and he will send copy of report to Dr. Morales, no events, device looks good.
--- NOTE | 2021-03-24 11:15 | PCM.PN.BLA ---
Progress Note Patient is remained stable overnight. Cardiac clearance was obtained. Medical clearance was obtained. Patient's INR is 1.5 at last check, appropriate to move forward with surgery. I spoken with the POA over the phone we did discuss risks of surgery which included but not limited to blood loss, DVTs, PEs, nervous damage, infection, the risk of anesthesia including loss of life. We also discussed excessive blood loss may require blood transfusion we discussed nonunions, malunions and screw cut out as well. Based on our discussion today patient's power of assistant attorney general was, moving forward with surgery we will proceed with surgery today.
[2021-03-24] MEDS: Cefazolin 2 GM in 0.9% Normal Saline 100 ML IV (11:21)
--- NOTE | 2021-03-24 12:03 | OP.PCM_ITS ---
Report of Operation Date of Procedure: 03/24/21 Pre-Operative Diagnosis: Left intertrochanteric hip fracture Post-Operative Diagnosis: Left intertrochanteric hip fracture Surgery/Procedure Performed:: Left hip cephalomedullary nail Description of Surgical Findings:: Stable reduction Surgeon: Omar Antoine mechanical unit repairer: Flor Medrano Type of Anesthesia: General Anesthesiologist: Norbert Early Special Medications: Ancef Estimated Blood Loss (mL): 100 Fluids Replaced: 300 ml crystalloid Description of Procedure: Components used: 1. [employer] InterTAN nail short 11.5mm nail 2. [employer] InterTAN lag screw 90mm 3. [employer] 32.5 millimeter interlocking screw Brief history operative indications: 80-year-old female with significant dementia presented with left hip intertrochanteric fracture. After history the disease process was discussed with the patient and power of county attorney. He did take 48 hours to get cardiac clearance and correct her INR which presented greater than 3 and drifted up over 4 after admission. After extensive discussion including risk and benefits which include but are not limited to blood loss, PEs, DVTs, neurovascular damage, nonunions, malunions and screw cut out patient and power of county attorney have elected to proceed with a left cephalo-medullary nail. Procedure: On the date of the procedure the patient's left hip was marked in the preoperative area and patient was taken back to the operating room. Anesthetic was administered and patient was transferred to the table were all bony prominence identified well-padded and the ipsilateral arm was placed across the chest. Patient was then translated down to the perineal post and the operative leg was placed in the boot while the nonoperative leg was lowered and secured. The operative leg was placed in traction and internal rotation and live fluoroscopy was used to verify adequate reduction. The operative leg was then prepped in a sterile fashion with chlorhexidine while the surgeon scrubbed. Upon reentering the room the operative extremity was draped in the standard orthopedic fashion. Skin incision was marked and a timeout was called. Everyone agreed upon the side, the site, the procedure be performed, patient's identity, and antibiotics given. Skin incision was made and the position of the entry guidepin was verified using live fluoroscopy. Once we were satisfied with our position the pin was advanced in the soft tissue protector was placed over the pin. The entry reamer was then advanced into the proximal portion of the femur. A [employer] short InterTAN 11.5 mm 125 hip nail was selected. The nail was then attached to the boring mill set up operator vertical and inserted into the intramedullary canal. The appropriate depth was verified and the skin incision for the lag screw was made. The lag screw guidepin was then placed under live fluoroscopy and when a satisfactory position was obtained the length of the screw was measured and the standard technique to drill for the lag screws was performed. The anti-rotation bar was used. At this time a 90 lag screw was selected with its corresponding compression screw. The lag screw was then passed and traction was left off the leg. The compression screw was then passed and the fracture was compressed. The final position of the lag screw was verified under fluoroscopy. Attention was then turned to the distal portion of the nail and a distal guide technique was used to locate the distal interlocking screw and a 32.5mm distal interlocking screw was placed using this technique. Live fluoroscopy was used to verify the position of the interlocking screw and the final position of the hip components. Once we were satisfied with our positioning the wounds were copiously irrigated out with normal saline skin was closed with 2-0 Vicryl and escobar for final skin closure. A sterile dressing was placed with Xeroform. Patient was then awakened by anesthesia transferred from the fracture table back to their hospital bed and transferred to the PACU for recovery. Postoperative plan: Patient will be weight-bear as tolerated. Will resume Coumadin tomorrow for DVT prophylaxis with knee-high stockings. Follow up in the office in 2 weeks. Complications none Admit VTE Documentation VTE Present on Admission: No VTE Mechan Device Prophylaxis: SCD's and Thigh High NITESH Hose VTE Pharm Prophylaxis ordered?: Yes
--- NOTE | 2021-03-24 12:05 | RAD_ITS ---
STUDY: X-RAY - PELVIS AND LEFT HIP REASON FOR EXAM: Female, 80 years old. frp -- in PACU TECHNIQUE: 2 views of the pelvis and hip. COMPARISON: Comparison is made with prior examination is 03/24/2021. FINDINGS: The patient is status post ORIF of the left intertrochanteric fracture utilizing compression screw and intramedullary balaji fixation device. RAD/HIP, UNI W/ Pelvis 2-3 Views IMPRESSION: Status post ORIF of the left intertrochanteric fracture. Satisfactory reduction. Electronically Signed: George Mitchell MD at 8:48 EDT , Service support ,
[2021-03-24 12:50] LABS: Bedside Glucose 84 mg/dL (70-110)
[2021-03-24 16:35] LABS: Bedside Glucose 91 mg/dL (70-110)
--- NOTE | 2021-03-24 17:47 | PN.HOSP_ITS ---
Subjective Subjective Patient was seen and examined today, I talked briefly with orthopedic surgery about her care, she underwent insertion of the left hip cephalic medullary nail today. Orthopedic surgery states that the patient can resume her warfarin tomorrow, due to the fact she has mechanical heart valve, patient will need to go on heparin starting tomorrow in addition to the warfarin. I discussed this with cardiology today. Objective Data Objective Data Vital Signs: Vital Signs Temp Pulse Resp BP Pulse Ox 97.9 F 76 18 143/65 H 92 03/24/21 17:41 03/24/21 17:41 03/24/21 17:41 03/24/21 17:41 03/24/21 17:41 Oxygen Flow Rate (L/min) 2 Oxygen Delivery Method Room Air Weight: 79.3 kg Body Mass Index (BMI) 27.6 Intake & Output: Intake and Output for Last 24 Hours 03/22/21 03/23/21 03/24/21 23:59 23:59 23:59 Intake Total 3470.17 / 3770.17 1654.75 / 1654.75 Output Total 1250 / 1925 2145 / 2145 Balance 2220.17 / 1845.17 -490.25 / -490.25 Lab / Micro Data Result Diagrams: 03/24/21 06:12 03/23/21 05:15 Labs: Laboratory Results - last 24 hr 03/23/21 18:15: PT 22.5 H, INR 2.1 03/23/21 21:26: POC Glucose 76 03/24/21 06:12: PT 17.2 H, INR 1.5 03/24/21 06:12: WBC 8.1, RBC 2.93 L, Hgb 8.3 L, Hct 27.4 L, MCV 93.5, MCH 28.3, MCHC 30.3 L, RDW Std Deviation 57.0 H, RDW Coeff of Michelet 16.9 H, Plt Count 129 L, MPV 12.4 H, Immature Gran % (Auto) 0.500, Neut % (Auto) 80.6 H, Lymph % (Auto) 6.1 L, Dillon % (Auto) 6.4, Eos % (Auto) 6.3 H, Baso % (Auto) 0.1, Absolute Neuts (auto) 6.6, Absolute Lymphs (auto) 0.50 L, Nucleated RBC % 0 03/24/21 06:40: POC Glucose 96 03/24/21 12:47: POC Glucose 84 03/24/21 16:23: POC Glucose 91 Micro: Microbiology 03/22/21 19:27 Nasal Secretion SARS-CoV-2 Antigen (Rapid) - Final Radiography Diagnostic Testing: Radiology Impression Hip X-Ray 03/24/21 07:30 IMPRESSION: Intraoperative digital documentation views as described. Electronically Signed: Ruddy Kaminski MD at 13:38 EDT , Service support , Physical Exam Const alert and no apparent distress Constitutional Narrative: Patient is confused General Appearance: cooperative, well kempt and well developed Orientation / Consciousness: awake, oriented to person, oriented to place and oriented to time HEENT normocephalic, head/scalp atraumatic and moist oral mucous membranes Head and Scalp: normocephalic Eyes PERRL, EOMs intact bilaterally and conjunctivae normal Neck nuchal rigidity, supple, no JVD, thyroid normal and no carotid bruits General: trachea midline Resp normal respiratory effort, no retractions, no use of accessory muscles and clear to auscultation bilaterally Auscultation: Negative for rales, rhonchi or wheezes Cardio S1 normal heart sound, S2 normal heart sound, no murmurs, no rub and no gallops Cardio Narrative: Heart rate and rhythm is irregular, mechanical click is noted over the left sternal border and apex GI normal to inspection, nondistended, normoactive bowel sounds, soft to palpation, non-tender and non-distended Extremity no clubbing, cyanosis or edema Skin no rashes or lesions noted and skin turgor normal General Skin Exam: no breakdown Neuro CN's II-XII intact bilaterally, no focal motor deficits and no sensory deficits noted Sensorium / Orientation: awake Speech: speech normal Psych thought process normal Psych Narrative: Patient is alert but confused Assessment & Plan Assessment/Plan (1) Closed left hip fracture: PLAN: 1. Left hip intertrochanteric fracture secondary to osteoporosis- status post insertion of a cephalic medullary nail-postop day 0, PT and OT will work with the patient #2 chronic atrial fibrillation #3 vascular dementia #4 cerebrovascular disease #5 anemia secondary to blood loss from left hip fracture-CBC will be rechecked tomorrow #6 essential hypertension #7 hyperlipidemia #8 coronary artery disease #9 mechanical aortic valve-again patient will be bridged with IV heparin Charges/Coding Visit Charges Inpatient E&M: 68233 Subs Hosp L2
[2021-03-24] MEDS: Cefazolin 1 GM/50 ML BAG IV (18:30)
[2021-03-24] MEDS: Morphine 2 MG/ML Syringe IV (18:30)
[2021-03-24] MEDS: Atorvastatin Calcium 80 MG Tablet PO (22:23)
[2021-03-24] MEDS: Nystatin Powder 15gm Bottle 1 APPLIC TOPICAL (22:23)
[2021-03-24] MEDS: Imipramine HCl 25 MG Tablet PO (22:24)
[2021-03-24] MEDS: Insulin Lispro 100 UNIT/ML INSULN.PEN SC (22:27)
[2021-03-24] MEDS: Furosemide 20 MG Tablet PO (22:27)
[2021-03-24] MEDS: Acetaminophen 325 MG Tablet 650 MG PO (22:29)
[2021-03-24 23:46] LABS: Bedside Glucose 153 mg/dL (70-110)
[2021-03-25] VITALS (7 sets, daily range): BP systolic 123–138; BP diastolic 54–67; PULSE 73–83; RESP 19–20; TEMP 36.4–37.4; O2SAT 94–99
[2021-03-25] MEDS: Cefazolin 1 GM/50 ML BAG IV (03:26)
[2021-03-25] MEDS: oxyCODONE 5 MG Tablet PO (05:58)
[2021-03-25] MEDS: Acetaminophen 325 MG Tablet 650 MG PO ×2 (05:58→12:34)
[2021-03-25] MEDS: 0.9% Normal Saline 1,000 ML 100 ML IV (06:04)
[2021-03-25 06:20] LABS: Bedside Glucose 102 mg/dL (70-110)
[2021-03-25 06:44] LABS: Absolute Neutrophil Count 7.2 X10^3/uL (2.0-7.7); Basophil# 0.02 X10^3/uL; Basophil% 0.2 % (0-1); Eosinophil# 0.12 X10^3/uL; Eosinophils% 1.4 % (0-5); Hematocrit 26.1 % (37-47); Hemoglobin 7.9 g/dL (12.0-15.0); Lymphocyte % 8.1 % (19-41); Mean Corp Hgb Conc 30.3 g/dL (32-36); Mean Corpuscular Hgb 28.8 pg (27.0-32.0); Mean Corpuscular Volume 95.3 fL (81-99); Mean Platelet Vol. 12.6 fl (6.2-12.0); Monocyte% 5.8 % (0-10); NRBC Flagged by Analyzer 0 % (0-5); Neutrophil # 7.22 X10^3/uL (2.7-7.7); Neutrophil % 84.2 % (47-70); POSITIVE COUNT YES; Platelet Count 106 K/mm3 (150-450); RBC Distribution Width CV 17.2 % (11.6-14.6); Red Blood Count 2.74 M/mm3 (4.2-5.4); White Blood Count 8.6 K/mm3 (4.4-11.0)
[2021-03-25 06:53] LABS: International Normalized Ratio 1.6
[2021-03-25 06:56] LABS: Differential Indicated SCAN CRITERIA MET
[2021-03-25] MEDS: Furosemide 40 MG Tablet PO (08:09)
[2021-03-25] MEDS: Ferrous Sulfate 325 MG Tablet PO (08:09)
[2021-03-25 08:54] LABS: Partial Thromboplast Time 41.9 Seconds (24.1-36.2)
[2021-03-25] MEDS: HEPARIN/D5w 25,000 UNITS 25,000 UNITS/250 ML IV.SOLN. 12 UNITS IV (09:16)
--- NOTE | 2021-03-25 10:34 | TREXTCAR_ITS ---
Documented by User: Paris Esteves NP, [employer] ARCHITECT-C 03/25/21 11:23 Diet 03/24/21 15:50 Diet: Cardiac - Heart Healthy Type of Dietary Supplement:: Glucerna Shake Is pt able to select menu?: No Diet Comments: 120 ml glucerna with meals. Routine Orders/Code Status Enema Type: Fleetz Enema Frequency: Daily PRN Suppository Type: Dulcolax 10mg Suppository Frequency: Daily PRN O2 Liters per Minute: 2 O2 Frequency: Continuous Keep PO Greater than or Equal to (%): 90 Routine Lab Work: - (CBC, INR daily for 3 days or until INR is therapeutic, then CBC, BMP, INR weekly) Code Status: DNRCC-A (with intubation) Wound(s) left elbow: Wound Type: Skin Tear left herrera: Wound Type: Abrasion left upper leg: Wound Type: Surgical Incision Suggestions for Active Care Change Position every (hours): 2 Times a day to sit in chair: 3 Therapies Weight Bearing: Weight bearing as tolerated Extremity Affected:: Left Lower Physical Therapy: Eval and Treat Occupational Therapy: Eval and Treat Problem/Diagnosis (1) Closed left hip fracture: Status: Acute Allergies/Procedures Done in Hospital Allergies duloxetine [From Cymbalta] Allergy (Verified 03/22/21 17:58) Other Penicillins Allergy (Verified 03/22/21 17:58) Hives terbutaline [From Brethine] Allergy (Verified 03/22/21 17:58) Shortness of breath tolmetin Adverse Reaction (Verified 03/22/21 17:58) Unknown Procedures: - (Left hip cephalomedullary nail) Type of Care/Length of Stay Estimated LOS: Convalescent Care Less Than 30 days Type of Care Needed: Skilled Rehab Potential: Fair Prognosis: Fair Additional Orders/Day of Discharge H&P will serve as current which was dated: 03/22/21 Day of Discharge: 03/25/21 Dietary and Speech Recommendations Dietitian Recommendations/Changes: Continue cardiac diet- will provide glucerna 120 ml with pt meals. Discharge Plan Admission Admit Date/Time: 03/22/21 19:51 Primary Reason for Your Visit: Left hip fracture Attending Provider: Anuel Joseph Primary Care Provider: Huey Wong Consulting Providers: Omar Antoine ; Michael Jameson Discharge Orders/Prescriptions Prescriptions: New acetaminophen [Tylenol] 325 mg Tablet 650 mg PO Q4H PRN PRN (Reason: Fever, pain -04/07) Qty: 0 RF: 0 polyethylene glycol 3350 [HealthyLax] 17 gram Powder In Packet 17 g PO DAILY Qty: 0 RF: 0 pantoprazole 40 mg Tablet,Delayed Release (Dr/Ec) 40 mg PO DAILY Qty: 0 RF: 0 oxycodone 5 mg Tablet 5 mg PO Q4H PRN PRN (Reason: Pain Score 4-5) 2 Days Qty: 5 RF: 0 enoxaparin 80 mg/0.8 mL Syringe 80 mg subcut DAILY Qty: 0 RF: 0 Continued allopurinol 100 MG tablet 100 mg PO DAILY RF: 0 nitroglycerin 0.4 MG tablet 0.4 mg sublingual Q5M PRN (Reason: Chest Pain) RF: 0 aspirin 81 MG tablet,chewable 81 mg PO DAILY RF: 0 quinapril [Accupril] 20 MG tablet 10 mg PO DAILY RF: 0 atorvastatin 80 MG tablet 80 mg PO DAILY RF: 0 metoprolol succinate 50 MG tablet 25 mg PO DAILY RF: 0 isosorbide mononitrate 60 MG tablet 30 mg PO DAILY RF: 0 ferrous sulfate 325 MG tablet 325 mg PO DAILY RF: 0 furosemide 20 MG tablet 20 mg PO BID RF: 0 warfarin 3 MG tablet 3 mg PO TUTHSA RF: 0 imipramine HCl 25 mg Tablet 25 mg PO QHS RF: 0 lorazepam 0.5 mg Tablet 0.5 - 1 mg PO BID PRN (Reason: Anxiety) RF: 0 warfarin 4 mg Tablet 4.5 mg PO QMWF RF: 0 Mineral Oil/Petrolatum,White [Eucerin] 1 APPLIC Jar 1 applic topical 0600,2200 RF: 0 fluoxetine 10 mg Capsule 10 mg PO DAILY RF: 0 Referrals / Follow Up: Omar Antoine MD [STAFF PHYSICIAN] - Within 2 Weeks Huey Wong [Primary Care Provider] - In 1 Week Disposition Disposition (needs filled in before D/C Order can be placed): Retirement Facility Documented by User: Dr. Anuel Joseph MD 03/25/21 16:39 Allergies/Procedures Done in Hospital Allergies duloxetine [From Cymbalta] Allergy (Verified 03/22/21 17:58) Other Penicillins Allergy (Verified 03/22/21 17:58) Hives terbutaline [From Brethine] Allergy (Verified 03/22/21 17:58) Shortness of breath tolmetin Adverse Reaction (Verified 03/22/21 17:58) Unknown Discharge Plan Admission Admit Date/Time: 03/22/21 19:51 Primary Reason for Your Visit: Left hip fracture Attending Provider: Anuel Joseph Primary Care Provider: Huey Wong Consulting Providers: Omar Antoine ; Michael Jameson Discharge Orders/Prescriptions Prescriptions: New acetaminophen [Tylenol] 325 mg Tablet 650 mg PO Q4H PRN PRN (Reason: Fever, pain 1-04/07) Qty: 0 RF: 0 polyethylene glycol 3350 [HealthyLax] 17 gram Powder In Packet 17 g PO DAILY Qty: 0 RF: 0 pantoprazole 40 mg Tablet,Delayed Release (Dr/Ec) 40 mg PO DAILY Qty: 0 RF: 0 oxycodone 5 mg Tablet 5 mg PO Q4H PRN PRN (Reason: Pain Score 4-5) 2 Days Qty: 5 RF: 0 enoxaparin 80 mg/0.8 mL Syringe 80 mg subcut DAILY Qty: 0 RF: 0 Continued allopurinol 100 MG tablet 100 mg PO DAILY RF: 0 nitroglycerin 0.4 MG tablet 0.4 mg sublingual Q5M PRN (Reason: Chest Pain) RF: 0 aspirin 81 MG tablet,chewable 81 mg PO DAILY RF: 0 quinapril [Accupril] 20 MG tablet 10 mg PO DAILY RF: 0 atorvastatin 80 MG tablet 80 mg PO DAILY RF: 0 metoprolol succinate 50 MG tablet 25 mg PO DAILY RF: 0 isosorbide mononitrate 60 MG tablet 30 mg PO DAILY RF: 0 ferrous sulfate 325 MG tablet 325 mg PO DAILY RF: 0 furosemide 20 MG tablet 20 mg PO BID RF: 0 warfarin 3 MG tablet 3 mg PO TUTHSA RF: 0 imipramine HCl 25 mg Tablet 25 mg PO QHS RF: 0 lorazepam 0.5 mg Tablet 0.5 - 1 mg PO BID PRN (Reason: Anxiety) RF: 0 warfarin 4 mg Tablet 4.5 mg PO QMWF RF: 0 Mineral Oil/Petrolatum,White [Eucerin] 1 APPLIC Jar 1 applic topical 0600,2200 RF: 0 fluoxetine 10 mg Capsule 10 mg PO DAILY RF: 0 Referrals / Follow Up: Omar Antoine MD [STAFF PHYSICIAN] - Within 2 Weeks Huey Wong [Primary Care Provider] - In 1 Week Disposition Disposition (needs filled in before D/C Order can be placed): Retirement Facility
[2021-03-25] MEDS: Isosorbide Mononitrate 30 MG Tablet PO (10:53)
[2021-03-25] MEDS: Metoprolol(XL)Succ 25 MG Tablet PO (10:53)
[2021-03-25] MEDS: Nystatin Powder 15gm Bottle 1 APPLIC TOPICAL (10:53)
[2021-03-25] MEDS: Polyethylene Glycol 3350 17 GM PACKET PO (10:53)
[2021-03-25] MEDS: Aspirin 81 MG TAB.CHEW PO (10:54)
[2021-03-25] MEDS: Lisinopril 10 MG Tablet PO (10:55)
[2021-03-25] MEDS: Pantoprazole Sodium 40 MG Tablet PO (10:55)
[2021-03-25] MEDS: Allopurinol 100 MG Tablet PO (10:56)
[2021-03-25] MEDS: BACITRACIN 15 GM Tube 1 APPLIC TOPICAL (11:22)
--- NOTE | 2021-03-25 11:24 | PCM.DC.SUM ---
Documented by User: Paris Esteves NP, TRANSLATIONAL SPECIALIST-C 03/25/21 11:42 Providers Date of Admission: 03/22/21 Date of Discharge: 03/25/21 Primary Care Physician: Huey Wong Consultations 03/22/21 23:33 Consult: Cardiology Routine Consulting Provider: Michael Jameson Reason for Consult: Pre-operative, CHF, PAF, Pacemaker (? on battery back up), AAA s/p rep, AVR EMERGENT Consult: No MD Notified: Yes Date Notified: 03/22/21 Time Notified: 19:57 Method of Notification: cortext Consult: Orthopedics Routine Consulting Provider: Omar Antoine Reason for Consult: Hip fracture EMERGENT Consult: No MD Notified: Yes Date Notified: 03/22/21 Time Notified: 19:58 Method of Notification: discussed with ED. Reason For Visit: LEFT HIP FRACTURE FALL Diagnosis Discharge Diagnosis (1) Closed left hip fracture: Status: Acute Code(s): S72.002A - Fracture of unspecified part of neck of left femur, initial encounter for closed fracture Medications at Discharge Home Medications allopurinol 100 mg PO DAILY 05/02/16 aspirin 81 mg PO DAILY 05/02/16 nitroglycerin 0.4 mg SUBLINGUAL Q5M PRN 05/02/16 quinapril [Accupril] 10 mg PO DAILY 06/30/17 atorvastatin 80 mg PO DAILY 08/28/20 ferrous sulfate 325 mg PO DAILY 08/28/20 furosemide 20 mg PO BID 08/28/20 isosorbide mononitrate 30 mg PO DAILY 08/28/20 metoprolol succinate 25 mg PO DAILY 08/28/20 warfarin 3 mg PO TUTHSA 08/28/20 imipramine HCl 25 mg PO QHS 11/02/20 Mineral Oil/Petrolatum,White [Eucerin] 1 applic TOPICAL 0600,2200 03/22/21 lorazepam 0.5 - 1 mg PO BID PRN 03/22/21 warfarin 4.5 mg PO QMWF 03/22/21 fluoxetine 10 mg PO DAILY 03/23/21 acetaminophen [Tylenol] 650 mg PO Q4H PRN PRN #0 tab 03/25/21 enoxaparin 80 mg SUBCUT DAILY #0 ml 03/25/21 oxycodone 5 mg PO Q4H PRN PRN 2 Days #5 tab 03/25/21 pantoprazole 40 mg PO DAILY #0 tab 03/25/21 polyethylene glycol 3350 [HealthyLax] 17 g PO DAILY #0 ea 03/25/21 Hospital Course Operations - (cephalic medullary nail) Procedures None Summary of Care Provided Minutes Spent on Discharge: 35 Hospital Course: Patient is an 80-year-old female admitted 03/22/2021 due to fall with left hip pain. 1. Pathologic left hip intertrochanteric fracture secondary to osteoporosis-status post cephalic medullary nail. Follow-up with orthopedic medicine in 2 weeks. PT/OT. SNF for rehab. 2. Acute anemia secondary to blood loss from left hip fracture, expected outcome on chronic normocytic anemia-trend CBC at SNF. 3. History of mechanical aortic valve-therapeutic Lovenox pending therapeutic INR. Continue home Coumadin regimen. 4. Chronic atrial fibrillation-on Coumadin, metoprolol. 5. Vascular dementia 6. CAD with history of CABG and PCI-continue medical management. 7. History of CVA-brain CT on admission shows chronic right cerebellar lacunar infarct-on aspirin, statin. 8. Hypertension-stable, continue current regimen. 9. Hyperlipidemia-continue statin. 10. History of DVT-on Coumadin. Patient seen and examined prior to discharge. Physical assessment as noted below. Patient is stable for discharge with follow up recommendations as noted above. This patient was seen by CALIN Encarnacion under the supervision of Dr. Joseph. Physical Exam Const alert and no apparent distress Orientation / Consciousness: awake HEENT normocephalic and moist oral mucous membranes Eyes PERRL, EOMs intact bilaterally and conjunctivae normal Neck no lymphadenopathy Resp normal respiratory effort and clear to auscultation bilaterally Cardio regular rate, regular rhythm and no murmurs Peripheral Pulses: pulses 2+ throughout GI normal to inspection, nondistended, normoactive bowel sounds, non-tender and non-distended Extremity normal to inspection Skin no rashes or lesions noted Skin Narrative: Postop dressing intact. Lesions: no lesions Rashes: no rashes Trauma: no lacerations or abrasions Neuro CN's II-XII intact bilaterally, no focal motor deficits, no sensory deficits noted and deep tendon reflexes 2+ bilaterally Psych mental status grossly normal and affect normal Weight / BMI Weight Weight: 179 lb 14.355 oz Body Mass Index (BMI) 27.6 ABG / Lab / Microbiology Data Result Diagrams: 03/25/21 06:33 03/23/21 05:15 Laboratory: Laboratory Results - last 24 hr 03/24/21 12:47: POC Glucose 84 03/24/21 16:23: POC Glucose 91 03/24/21 22:14: POC Glucose 153 H 03/25/21 06:15: POC Glucose 102 03/25/21 06:33: WBC 8.6, RBC 2.74 L, Hgb 7.9 L, Hct 26.1 L, MCV 95.3, MCH 28.8, MCHC 30.3 L, RDW Std Deviation 59.0 H, RDW Coeff of Michelet 17.2 H, Plt Count 106 L, MPV 12.6 H, Immature Gran % (Auto) 0.300, Neut % (Auto) 84.2 H, Lymph % (Auto) 8.1 L, [place] % (Auto) 5.8, Eos % (Auto) 1.4, Baso % (Auto) 0.2, Absolute Neuts (auto) 7.2, Absolute Lymphs (auto) 0.70 L, Nucleated RBC % 0 03/25/21 06:33: PT 18.0 H, INR 1.6 03/25/21 06:33: APTT 41.9 H Microbiology: Microbiology 03/22/21 19:27 Nasal Secretion SARS-CoV-2 Antigen (Rapid) - Final Radiography Diagnostic Testing: Radiology Impression Brain CT 03/22/21 18:00 IMPRESSION: 1. No acute findings. 2. Chronic right cerebellar lacunar infarct. 3. Microvascular ischemia. Atrophy. Electronically Signed: Sheila Wong MD at 19:57 EDT Tel , Service support , Chest X-Ray 03/22/21 18:00 IMPRESSION: Normal x-ray examination of the chest. Electronically Signed: Sheila Wong MD at 20:34 EDT Tel , Service support , Hip/Pelvis X-Ray 03/22/21 18:02 IMPRESSION: Acute intertrochanteric fracture of the left femur. Electronically Signed: Sheila Wong MD at 20:38 EDT Tel , Service support , Hip X-Ray 03/24/21 07:30 IMPRESSION: Intraoperative digital documentation views as described. Electronically Signed: Ruddy Kaminski MD at 13:38 EDT , Service support , Hip/Pelvis X-Ray 03/24/21 12:05 IMPRESSION: Status post ORIF of the left intertrochanteric fracture. Satisfactory reduction. Electronically Signed: George Mitchell MD at 8:48 EDT , Service support , Meaningful Use Info Meaningful Use Diagnoses (Choose all that apply): None applicable Discharge Plan Admission Admit Date/Time: 03/22/21 19:51 Primary Reason for Your Visit: Left hip fracture Attending Provider: Anuel Joseph Primary Care Provider: Huey Wong Consulting Providers: Omar Antoine ; Michael Jameson Discharge Orders/Prescriptions Prescriptions: New acetaminophen [Tylenol] 325 mg Tablet 650 mg PO Q4H PRN PRN (Reason: Fever, pain 1-10/10) Qty: 0 RF: 0 polyethylene glycol 3350 [HealthyLax] 17 gram Powder In Packet 17 g PO DAILY Qty: 0 RF: 0 pantoprazole 40 mg Tablet,Delayed Release (Dr/Ec) 40 mg PO DAILY Qty: 0 RF: 0 oxycodone 5 mg Tablet 5 mg PO Q4H PRN PRN (Reason: Pain Score 4-5) 2 Days Qty: 5 RF: 0 enoxaparin 80 mg/0.8 mL Syringe 80 mg subcut DAILY Qty: 0 RF: 0 Continued allopurinol 100 MG tablet 100 mg PO DAILY RF: 0 nitroglycerin 0.4 MG tablet 0.4 mg sublingual Q5M PRN (Reason: Chest Pain) RF: 0 aspirin 81 MG tablet,chewable 81 mg PO DAILY RF: 0 quinapril [Accupril] 20 MG tablet 10 mg PO DAILY RF: 0 atorvastatin 80 MG tablet 80 mg PO DAILY RF: 0 metoprolol succinate 50 MG tablet 25 mg PO DAILY RF: 0 isosorbide mononitrate 60 MG tablet 30 mg PO DAILY RF: 0 ferrous sulfate 325 MG tablet 325 mg PO DAILY RF: 0 furosemide 20 MG tablet 20 mg PO BID RF: 0 warfarin 3 MG tablet 3 mg PO TUTHSA RF: 0 imipramine HCl 25 mg Tablet 25 mg PO QHS RF: 0 lorazepam 0.5 mg Tablet 0.5 - 1 mg PO BID PRN (Reason: Anxiety) RF: 0 warfarin 4 mg Tablet 4.5 mg PO QMWF RF: 0 Mineral Oil/Petrolatum,White [Eucerin] 1 APPLIC Jar 1 applic topical 0600,2200 RF: 0 fluoxetine 10 mg Capsule 10 mg PO DAILY RF: 0 Referrals / Follow Up: Omar Antoine MD [STAFF PHYSICIAN] - Within 2 Weeks Huey Wong [Primary Care Provider] - In 1 Week Disposition Disposition (needs filled in before D/C Order can be placed): Intermediate Facility Documented by User: Dr. Anuel Joseph MD 03/25/21 17:23 Providers Date of Admission: 03/22/21 Reason For Visit: LEFT HIP FRACTURE FALL Medications at Discharge Home Medications allopurinol 100 mg PO DAILY 05/02/16 aspirin 81 mg PO DAILY 05/02/16 nitroglycerin 0.4 mg SUBLINGUAL Q5M PRN 05/02/16 quinapril [Accupril] 10 mg PO DAILY 06/30/17 atorvastatin 80 mg PO DAILY 08/28/20 ferrous sulfate 325 mg PO DAILY 08/28/20 furosemide 20 mg PO BID 08/28/20 isosorbide mononitrate 30 mg PO DAILY 08/28/20 metoprolol succinate 25 mg PO DAILY 08/28/20 warfarin 3 mg PO TUTHSA 08/28/20 imipramine HCl 25 mg PO QHS 11/02/20 Mineral Oil/Petrolatum,White [Eucerin] 1 applic TOPICAL 0600,2200 03/22/21 lorazepam 0.5 - 1 mg PO BID PRN 03/22/21 warfarin 4.5 mg PO QMWF 03/22/21 fluoxetine 10 mg PO DAILY 03/23/21 acetaminophen [Tylenol] 650 mg PO Q4H PRN PRN #0 tab 03/25/21 enoxaparin 80 mg SUBCUT DAILY #0 ml 03/25/21 oxycodone 5 mg PO Q4H PRN PRN 2 Days #5 tab 03/25/21 pantoprazole 40 mg PO DAILY #0 tab 03/25/21 polyethylene glycol 3350 [HealthyLax] 17 g PO DAILY #0 ea 03/25/21 ABG / Lab / Microbiology Data Result Diagrams: 03/25/21 06:33 03/23/21 05:15 Discharge Plan Admission Admit Date/Time: 03/22/21 19:51 Primary Reason for Your Visit: Left hip fracture Attending Provider: Anuel Joseph Primary Care Provider: Huey Wong Consulting Providers: Omar Antoine ; Michael Jameson Discharge Orders/Prescriptions Prescriptions: New acetaminophen [Tylenol] 325 mg Tablet 650 mg PO Q4H PRN PRN (Reason: Fever, pain 1-10/10) Qty: 0 RF: 0 polyethylene glycol 3350 [HealthyLax] 17 gram Powder In Packet 17 g PO DAILY Qty: 0 RF: 0 pantoprazole 40 mg Tablet,Delayed Release (Dr/Ec) 40 mg PO DAILY Qty: 0 RF: 0 oxycodone 5 mg Tablet 5 mg PO Q4H PRN PRN (Reason: Pain Score 4-5) 2 Days Qty: 5 RF: 0 enoxaparin 80 mg/0.8 mL Syringe 80 mg subcut DAILY Qty: 0 RF: 0 Continued allopurinol 100 MG tablet 100 mg PO DAILY RF: 0 nitroglycerin 0.4 MG tablet 0.4 mg sublingual Q5M PRN (Reason: Chest Pain) RF: 0 aspirin 81 MG tablet,chewable 81 mg PO DAILY RF: 0 quinapril [Accupril] 20 MG tablet 10 mg PO DAILY RF: 0 atorvastatin 80 MG tablet 80 mg PO DAILY RF: 0 metoprolol succinate 50 MG tablet 25 mg PO DAILY RF: 0 isosorbide mononitrate 60 MG tablet 30 mg PO DAILY RF: 0 ferrous sulfate 325 MG tablet 325 mg PO DAILY RF: 0 furosemide 20 MG tablet 20 mg PO BID RF: 0 warfarin 3 MG tablet 3 mg PO TUTHSA RF: 0 imipramine HCl 25 mg Tablet 25 mg PO QHS RF: 0 lorazepam 0.5 mg Tablet 0.5 - 1 mg PO BID PRN (Reason: Anxiety) RF: 0 warfarin 4 mg Tablet 4.5 mg PO QMWF RF: 0 Mineral Oil/Petrolatum,White [Eucerin] 1 APPLIC Jar 1 applic topical 0600,2200 RF: 0 fluoxetine 10 mg Capsule 10 mg PO DAILY RF: 0 Referrals / Follow Up: Omar Antoine MD [STAFF PHYSICIAN] - Within 2 Weeks Huey Wong [Primary Care Provider] - In 1 Week Disposition Disposition (needs filled in before D/C Order can be placed): Intermediate Facility Charges/Coding Addendum Addendum: Dr. Joseph: I personally reviewed the chart and examined the patient, and agree with the above findings. 80-year-old female presented to the hospital after mechanical fall while attempting to get into the car. She was found to have a left-sided hip fracture. Underwent operative repair on 03/24/2021 and has since done well. Hemoglobin today went from 8.3 down to 7.9 and no signs of bleeding are noted. She is being bridged with a heparin drip for therapeutic INR secondary to history of DVT. She will be discharged back to the group home facility today to undergo physical therapy. I do recommend a CBC in the morning for further monitoring and will continue with the bridging with therapeutic Lovenox twice daily until INR therapeutic between 2 and 3. Given her osteoporosis, would recommend initiation of Fosamax or something similar on the outpatient side. Visit Charges Inpatient E&M: 09342 Disch Hosp
[2021-03-25 11:40] LABS: Bedside Glucose 119 mg/dL (70-110)
--- NOTE | 2021-03-25 11:44 | PHA.DC.MR ---
Pharmacy Service has performed discharge medication reconciliation for this patient. The patient's discharge medication list was reviewed for discrepancies and discrepancies were resolved. Home Medications allopurinol 100 mg PO DAILY 05/02/16 aspirin 81 mg PO DAILY 05/02/16 nitroglycerin 0.4 mg SUBLINGUAL Q5M PRN 05/02/16 quinapril [Accupril] 10 mg PO DAILY 06/30/17 atorvastatin 80 mg PO DAILY 08/28/20 ferrous sulfate 325 mg PO DAILY 08/28/20 furosemide 20 mg PO BID 08/28/20 isosorbide mononitrate 30 mg PO DAILY 08/28/20 metoprolol succinate 25 mg PO DAILY 08/28/20 warfarin 3 mg PO TUTHSA 08/28/20 imipramine HCl 25 mg PO QHS 11/02/20 Mineral Oil/Petrolatum,White [Eucerin] 1 applic TOPICAL 0600,2200 03/22/21 lorazepam 0.5 - 1 mg PO BID PRN 03/22/21 warfarin 4.5 mg PO QMWF 03/22/21 fluoxetine 10 mg PO DAILY 03/23/21 acetaminophen [Tylenol] 650 mg PO Q4H PRN PRN #0 tab 03/25/21 enoxaparin 80 mg SUBCUT DAILY #0 ml 03/25/21 oxycodone 5 mg PO Q4H PRN PRN 2 Days #5 tab 03/25/21 pantoprazole 40 mg PO DAILY #0 tab 03/25/21 polyethylene glycol 3350 [HealthyLax] 17 g PO DAILY #0 ea 03/25/21
[2021-03-25] MEDS: Enoxaparin 80 MG/0.8 ML Syringe SC (12:39)
--- NOTE | 2021-03-25 12:53 | CASEMGMT ---
Social Work Note MIKAYLA placed a call to [facility] and spoke with Geena in admissions. Geena states they are able to accept pt today. MIKAYLA informed Geena that pt is medically cleared for discharge today. MIKAYLA faxed completed discharge paperwork to [facility] including transfer to extended care facility, signed medication list, any scripts, COVID test/Tool, and Convalescent 7000. Original in SNF folder and copy on pt's chart. MIKAYLA completed convalescent 7000 in [facility]. Original in SNF folder and copy on pt's chart. MIKAYLA reviewed chart, pt currently confused. MIKAYLA placed a call to pt's daughter Aixa and updated her that pt will be discharged to [facility] today, this worker will arrange transportation and then lether know a time. Aixa states understanding. Plan: [facility] today under convalescent stay Sudha Ro CRANE HELPER, TEST DESIGNER
--- NOTE | 2021-03-25 15:12 | PN.ORTHO_ITS ---
Subjective Subjective Patient seen and examined this morning. No acute events overnight. No chest pain or shortness of breath reported. Overall she is been doing well. Nurse not report any events overnight. Objective Data Objective Data Vital Signs: Vital Signs Temp Pulse Resp BP Pulse Ox 98.5 F 77 20 H 132/54 H 94 03/25/21 07:59 03/25/21 10:53 03/25/21 07:59 03/25/21 10:53 03/25/21 12:32 Oxygen Flow Rate (L/min) 2 Oxygen Delivery Method Room Air Weight: 179 lb 14.355 oz Body Mass Index (BMI) 27.6 Intake & Output: Intake and Output for Last 24 Hours 03/23/21 03/24/21 03/25/21 23:59 23:59 23:59 Intake Total 3470.17 / 3770.17 2656.41 / 2656.41 1225.67 / 1225.67 Output Total 1250 / 1925 2145 / 2145 625 / 625 Balance 2220.17 / 1845.17 511.41 / 511.41 600.67 / 600.67 Lab / Micro Data Result Diagrams: 03/25/21 06:33 03/23/21 05:15 Labs: Laboratory Results - last 24 hr 03/24/21 16:23: POC Glucose 91 03/24/21 22:14: POC Glucose 153 H 03/25/21 06:15: POC Glucose 102 03/25/21 06:33: WBC 8.6, RBC 2.74 L, Hgb 7.9 L, Hct 26.1 L, MCV 95.3, MCH 28.8, MCHC 30.3 L, RDW Std Deviation 59.0 H, RDW Coeff of Michelet 17.2 H, Plt Count 106 L, MPV 12.6 H, Immature Gran % (Auto) 0.300, Neut % (Auto) 84.2 H, Lymph % (Auto) 8.1 L, Sharp % (Auto) 5.8, Eos % (Auto) 1.4, Baso % (Auto) 0.2, Absolute Neuts (a uto) 7.2, Absolute Lymphs (auto) 0.70 L, Nucleated RBC % 0 03/25/21 06:33: PT 18.0 H, INR 1.6 03/25/21 06:33: APTT 41.9 H 03/25/21 11:31: POC Glucose 119 H Micro: Microbiology 03/22/21 19:27 Nasal Secretion SARS-CoV-2 Antigen (Rapid) - Final Radiography Diagnostic Testing: Radiology Impression Brain CT 03/22/21 18:00 IMPRESSION: 1. No acute findings. 2. Chronic right cerebellar lacunar infarct. 3. Microvascular ischemia. Atrophy. Electronically Signed: Sheila Wong MD at 19:57 EDT Tel , Service support , Chest X-Ray 03/22/21 18:00 IMPRESSION: Normal x-ray examination of the chest. Electronically Signed: Sheila Wong MD at 20:34 EDT Tel , Service support , Hip/Pelvis X-Ray 03/22/21 18:02 IMPRESSION: Acute intertrochanteric fracture of the left femur. Electronically Signed: Sheila Wong MD at 20:38 EDT Tel , Service support , Hip X-Ray 03/24/21 07:30 IMPRESSION: Intraoperative digital documentation views as described. Electronically Signed: Ruddy Kaminski MD at 13:38 EDT , Service support , Hip/Pelvis X-Ray 03/24/21 12:05 IMPRESSION: Status post ORIF of the left intertrochanteric fracture. Satisfactory reduction. Electronically Signed: George Mitchell MD at 8:48 EDT , Service support , Physical Exam Extremity Extremity Narrative: Left lower extremity: Dressing is clean dry and intact Sensations intact to light touch saphenous, sural, superficial peroneal, deep peroneal, and tibial distributions Motors intact EHL, DF, PF calves are soft and supple Assessment & Plan Assessment/Plan (1) Closed left hip fracture: QUALIFIERS: Encounter type: initial encounter Qualified Code(s): S72.002A - Fracture of unspecified part of neck of left femur, initial encounter for closed fracture PLAN: Postop day 1 cephalo-medullary nail right hip 1. Pain control: Patient is currently control, primary service manage pain 2. DVT prophylaxis: Patient is currently on Coumadin for DVT prophylaxis which she was on preoperatively 3. Physical therapy: Patient is weight-bear as tolerated 4. Disposition: Patient be ready for discharge when medically stable. No further orthopedic intervention needed 5. Hemoglobin this morning was 7.9 related to chronic anemia and blood loss from the fracture and intraoperatively. Remove dressing postop day 5. Follow-up in office in 2 weeks postop. Remove escobar postop day 13. [facility] Office:
--- NOTE | 2021-03-25 16:00 | CASEMGMT ---
Social Work Note SW accessed trip assist and arranged transportation via cot for 6:30pm. Transportation form completed and placed on SNF folder and copy on pt's chart. SW updated RN on transportation time. SW attempted to update pt, pt currently confused. MIKAYLA placed a call to [facility] and spoke with Geena in admissions and updated her on transportation time. MIKAYLA placed a call to pt's daughter Aixa and updated her on transportation time. Aixa states understanding. Plan: [facility] today under convalescent stay with Physician[facility] transporting pt via cot at 6:30pm Sudha Ro MSW, TOE CLOSING MACHINE TENDER
[2021-03-25 16:45] LABS: Bedside Glucose 103 mg/dL (70-110)
--- NOTE | 2021-03-25 16:58 | PCM.PN.CARD ---
Subjective Subjective The patient is awake and alert. She appears to be without any acute complaints at this time from a cardiovascular standpoint. Objective Data Vital Signs: Vital Signs Temp Pulse Resp BP Pulse Ox 97.6 F L 73 19 H 138/54 H 98 03/25/21 15:33 03/25/21 15:33 03/25/21 15:33 03/25/21 15:33 03/25/21 15:33 Oxygen Flow Rate (L/min) 2 Oxygen Delivery Method Room Air Weight: 179 lb 14.355 oz Body Mass Index (BMI) 27.6 Intake & Output: Intake and Output for Last 24 Hours 03/23/21 03/24/21 03/25/21 23:59 23:59 23:59 Intake Total 3470.17 / 3770.17 2656.41 / 2656.41 1835.67 / 1835.67 Output Total 1250 / 1925 2145 / 2145 625 / 625 Balance 2220.17 / 1845.17 511.41 / 511.41 1210.67 / 1210.67 Lab / Micro Data Result Diagrams: 03/25/21 06:33 03/23/21 05:15 Labs: Laboratory Results - last 24 hr 03/24/21 22:14: POC Glucose 153 H 03/25/21 06:15: POC Glucose 102 03/25/21 06:33: WBC 8.6, RBC 2.74 L, Hgb 7.9 L, Hct 26.1 L, MCV 95.3, MCH 28.8, MCHC 30.3 L, RDW Std Deviation 59.0 H, RDW Coeff of [place] 17.2 H, Plt Count 106 L, MPV 12.6 H, Immature Gran % (Auto) 0.300, Neut % (Auto) 84.2 H, Lymph % (Auto) 8.1 L, [place] % (Auto) 5.8, Eos % (Auto) 1.4, Baso % (Auto) 0.2, Absolute Neuts (auto) 7.2, Absolute Lymphs (auto) 0.70 L, Nucleated RBC % 0 03/25/21 06:33: PT 18.0 H, INR 1.6 03/25/21 06:33: APTT 41.9 H 03/25/21 11:31: POC Glucose 119 H 03/25/21 16:31: POC Glucose 103 Cardiology Labs/Tests 03/25/21 06:33: WBC 8.6, RBC 2.74 L, Hgb 7.9 L, Hct 26.1 L, MCV 95.3, MCH 28.8, MCHC 30.3 L, Plt Count 106 L, MPV 12.6 H, Immature Gran % (Auto) 0.300, Neut % (Auto) 84.2 H, Lymph % (Auto) 8.1 L, [place] % (Auto) 5.8, Eos % (Auto) 1.4, Baso % (Auto) 0.2, Absolute Neuts (auto) 7.2, Nucleated RBC % 0 03/25/21 06:33: PT 18.0 H, INR 1.6 03/25/21 06:33: APTT 41.9 H Echocardiogram: 03-22-2021 Interpretation Summary The study was technically difficult. Left ventricular systolic function is normal. The estimated ejection fraction is 55 %. Apical wall motion abnormality may reflect pacemaker activation. The left atrium is moderately enlarged. The right atrium is mildly enlarged. There is mild mitral annular calcification. Extension of the mitral annular calcification on the base of the posterior mitral valve leaflet. Mild (1+) mitral valve insufficiency. Mild to moderate (1-2+) tricuspid valve insufficiency. Stable appearing mechanical aortic valve apparatus. Trivial transvalvular insufficiency of the aortic valve. Mildly dilated aortic root. Right ventricular systolic pressure estimated to be 47 mmHg. Unable to assess diastolic dysfunction. ICD or pacer leads identified within the right atrium ICD or pacer leads identified within the right ventricle. Color-flow Doppler appearing compatible with an intra-atrial communication compatible with a small ASD with left to right interatrial shunting. Comment: The previous transthoracic echocardiogram from 06-30-2017 included an agitated saline contrast study which appeared to be negative for a right to left interatrial shunt. Radiography Diagnostic Testing: Radiology Impression Brain CT 03/22/21 18:00 IMPRESSION: 1. No acute findings. 2. Chronic right cerebellar lacunar infarct. 3. Microvascular ischemia. Atrophy. Electronically Signed: Sheila Wong MD at 19:57 EDT Tel , Service support , Chest X-Ray 03/22/21 18:00 IMPRESSION: Normal x-ray examination of the chest. Electronically Signed: Sheila Wong MD at 20:34 EDT Tel , Service support , Hip/Pelvis X-Ray 03/22/21 18:02 IMPRESSION: Acute intertrochanteric fracture of the left femur. Electronically Signed: Sheila Wong MD at 20:38 EDT Tel , Service support , Hip X-Ray 03/24/21 07:30 IMPRESSION: Intraoperative digital documentation views as described. Electronically Signed: Ruddy Kaminski MD at 13:38 EDT , Service support , Hip/Pelvis X-Ray 03/24/21 12:05 IMPRESSION: Status post ORIF of the left intertrochanteric fracture. Satisfactory reduction. Electronically Signed: George Mitchell MD at 8:48 EDT , Service support , Physical Exam Const alert and no apparent distress Orientation / Consciousness: awake HEENT normocephalic and head/scalp atraumatic Eyes PERRL, EOMs intact bilaterally and conjunctivae normal Neck no JVD Chest Chest: midline sternotomy incision Resp clear to auscultation bilaterally Cardio Rhythm: abnormal rhythm irregularly irregular Heart Sounds: S1 normal and prosthetic sounds crisp prosthetic S2 GI normal to inspection, nondistended, normoactive bowel sounds Extremity Extremity Narrative: Left hip pain General Extremity: edema bilateral lower extremity Neuro no focal motor deficits and no sensory deficits noted Psych cooperative Assessment & Plan Assessment/Plan (1) Atherosclerotic heart disease of [place] coronary artery without angina pectoris: QUALIFIERS: [place] vs. transplanted heart: unspecified whether [place] or transplanted heart Qualified Code(s): I25.10 - Atherosclerotic heart disease of [place] coronary artery without angina pectoris PLAN: The patient has a history of CAD. The details are unknown. She has reportedly undergone previous PCI and CABG. Again the details are unknown. At the present time she does not appear to have ongoing issues of classic angina pectoris. It appears she has been on medical management which has included therapy such as aspirin, nitrates, beta-blockers, OCTAVIANO inhibitor's, lipid-lowering agents, as well as her anticoagulant therapy. (2) S/P PTCA (percutaneous transluminal coronary angioplasty): PLAN: Again, per the medical record, the patient appears to have a history of PCI. The details are unknown. (3) S/P CABG (coronary artery bypass graft): PLAN: The patient appears to have a history of CABG. The details are unknown. (4) S/P AVR (aortic valve replacement): PLAN: The patient does have a history of aortic valve replacement. Her previous echocardiogram is as noted. H antibiotic prophylaxis. She is restarting anticoagulant therapy. She should be considered for bridging anticoagulant therapy with IV heparin at this time, as it is short acting and can be terminated and/or reversed if need be barring an unforeseen postoperative hemorrhagic issue, as her warfarin is reinitiated pending her INR becoming therapeutic. 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 She does not appear to have any acute symptoms at this time. She can continue medical therapy. Her echocardiogram is as noted. (6) A-fib: PLAN: The patient appears to be remaining in atrial fibrillation. She will need rate control therapy and anticoagulant therapy. (7) Presence of cardiac pacemaker: PLAN: The has a permanent pacemaker. 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 To the best of her knowledge it has been functioning appropriately. (8) S/P AAA (abdominal aortic aneurysm) repair: PLAN: The patient reportedly has a history of AAA repair. Again the details are unknown. (9) Lymphedema of both lower extremities: PLAN: The patient has history of chronic lower extremity edema. Per the medical records it appears this is related to chronic lymphedema. (10) HLD (hyperlipidemia): PLAN: The patient has been on lipid-lowering therapy with a statin. (11) HTN (hypertension): PLAN: The patient's blood pressure can be followed with her medicines adjusted accordingly. (12) Diabetes mellitus: PLAN: The patient will continue evaluation care per internal medicine (13) History of DVT (deep vein thrombosis): PLAN: The patient has a history of DVT. She has been on anticoagulant therapy. (14) Closed left hip fracture: QUALIFIERS: Encounter type: initial encounter Qualified Code(s): S72.002A - Fracture of unspecified part of neck of left femur, initial encounter for closed fracture PLAN: At the present time she appears without any obvious adverse cardiovascular events following her noncardiac surgery. She will continue medical management and follow-up as deemed appropriate. Addt'l Comments This note was generated using a voice recognition system and there may be incorrect words, spelling or punctuation that were not noted when reviewing the office note prior to saving.
== END 2021-03-25 19:37 | disposition skilled nursing facility (03) | DRG 481 ==
LOC: ED 19:28 → MS3 20:07
PROVIDERS: Internal Medicine; Specialist; Admitting Provider Family Medicine; Emergency Provider Emergency Medicine; PCP Family Medicine; Visit Provider Family Medicine
PROC: (CPT 27245; principal; 2021-03-23 08:30)
DX: M80.052A Age-related osteoporosis with current pathological fracture, left femur, initial encounter for fracture (principal); D62 Acute posthemorrhagic anemia; I48.20 Chronic atrial fibrillation, unspecified; I13.0 Hypertensive heart and chronic kidney disease with heart failure and stage 1 through stage 4 chronic kidney disease, or unspecified chronic kidney disease; I50.32 Chronic diastolic (congestive) heart failure; I87.312 Chronic venous hypertension (idiopathic) with ulcer of left lower extremity; D63.1 Anemia in chronic kidney disease; I25.10 Atherosclerotic heart disease of native coronary artery without angina pectoris; N18.32 Chronic kidney disease, stage 3b; I67.2 Cerebral atherosclerosis; E78.5 Hyperlipidemia, unspecified; I89.0 Lymphedema, not elsewhere classified; E11.51 Type 2 diabetes mellitus with diabetic peripheral angiopathy without gangrene; E11.22 Type 2 diabetes mellitus with diabetic chronic kidney disease; E11.42 Type 2 diabetes mellitus with diabetic polyneuropathy; M10.9 Gout, unspecified; M19.90 Unspecified osteoarthritis, unspecified site; M25.511 Pain in right shoulder; F01.50 Vascular dementia, unspecified severity, without behavioral disturbance, psychotic disturbance, mood disturbance, and anxiety; W01.0XXA Fall on same level from slipping, tripping and stumbling without subsequent striking against object, initial encounter; Z66 Do not resuscitate; Z95.2 Presence of prosthetic heart valve; Z95.1 Presence of aortocoronary bypass graft; Z95.0 Presence of cardiac pacemaker; Z95.5 Presence of coronary angioplasty implant and graft; Z79.01 Long term (current) use of anticoagulants; Z79.899 Other long term (current) drug therapy; Z87.891 Personal history of nicotine dependence; Z86.718 Personal history of other venous thrombosis and embolism; Z86.73 Personal history of transient ischemic attack (TIA), and cerebral infarction without residual deficits
CPT/HCPCS: 36415; 70450; 71045; 73502; 76000; 80048; 80053; 81001; 82962; 83036; 83735; 83880; 84443; 84484; 85025; 85610; 85730; 86850; 86900; 86901; 87426; 93005; 93306; 97162; 97166; 99251; 99285; C1713; J7030; J7040; P9017; A4216; G0463; J2405; J3490